=== PATIENT | female | born 1940 | race African-American/Black ===

== ENCOUNTER 2020-06-11 19:37 | Emergency (ER) | payer OTHER ==
[2020-06-11 19:50] VITALS: BMI 22.6
--- NOTE | 2020-06-11 20:24 | PDOC ---
Attending Attestation - Resident Resident Name: Leni Morin - ED Attending Attestation I have performed the following: I have examined & evaluated the patient, The case was reviewed & discussed with the resident, I agree w/resident's findings & plan - HPI HPI: 06/11/20 21:02 see resident hpi - Physicial Exam PE: 06/11/20 21:02 see resident exam - Medical Decision Making 06/11/20 21:02 80-year-old female status post pacemaker battery replacement4 days ago complaining of pain and swelling to the sites Patient is currently on Coumadin and states that she was not asked to stop the medication prior to procedure Chest x-ray shows in-place pacemaker, there is no obvious pneumothorax Increased markings in the surrounding area likely due to subcutaneous hematoma We will place call to patient's cardiology team for further recommendations 06/11/20 21:03 Discharge - Discharge Information Problems reviewed: Yes Clinical Impression/Diagnosis: At risk for complication at site of pacemaker Condition: Fair - Follow up/Referral - Patient Discharge Instructions - Post Discharge Activity
[2020-06-11] MEDS ORDERED: ACETAMINOPHEN 325 MG TABLET (FP) PO ONE (20:28)
[2020-06-11] MEDS ORDERED: ACETAMINOPHEN 325 MG TABLET (FP) ONE (20:37)
--- NOTE | 2020-06-11 20:40 | PDOC ---
History of Present Illness - General Chief Complaint: Pain, Acute Stated Complaint: BRUISING TO PACEMAKER SITE Time Seen by Provider: 06/11/20 20:23 - History of Present Illness Initial Comments: 80 yo female with PMH of htn, hld, dm, afib (warfarin), chf, copd (2L) Pt BIBEMS from [facility] for pain/bruising on her left breast and left arm. She underwent pacemaker battery replacement on wednesday with the surgical site at the top left chest wall. Her continued taking her warfarin throughout the surgery. She endorses pain at the surgical site that has been decreasing and responsive to tylenol. She denies fevers, chills, cp, sob, nvd, abd pain, dysuria. Past History - Medical History Allergies/Adverse Reactions: Allergies Allergy/AdvReac Type Severity Reaction Status Date / Time Penicillins Allergy Verified 02/06/20 14:35 Home Medications: Ambulatory Orders Acetaminophen [Pain Relief] 500 mg PO QID 02/06/20 Albuterol Sulfate Inhaler - [Ventolin Hfa Inhaler -] 1 puff IH QID 02/06/20 Amlodipine Besylate [Norvasc -] 10 mg PO DAILY 02/06/20 Ascorbic Acid [Vitamin C] 500 mg PO DAILY 02/06/20 Aspirin [Aspirin EC] 81 mg PO DAILY 02/06/20 Atorvastatin Ca [Lipitor] 40 mg PO HS 02/06/20 Budesonide/Formeterol Fumarate [SYMBICORT 160/4.5mcg -] 1 inh PO BID 02/06/20 Carboxymethylcellulose Sodium [Refresh Plus] 1 each OU BID 02/06/20 Cholecalciferol (Vitamin D3) [Vitamin D3] 2,000 unit PO DAILY 02/06/20 Furosemide [Lasix] 20 mg PO DAILY 02/06/20 Glimepiride [Amaryl -] 1 mg PO DAILY 02/06/20 Isosorbide Mononitrate [Imdur -] 60 mg PO DAILY 02/06/20 Lisinopril [Prinivil] 10 mg PO DAILY 02/06/20 Metoprolol Succinate [Toprol Xl] 50 mg PO DAILY 02/06/20 Nitrofurantoin Monohyd/M-Cryst [Macrobid -] 100 mg PO BID 5 Days #10 capsule 02/06/20 Olopatadine HCl [Pazeo] 1 drop OP DAILY 02/06/20 Pantoprazole Sodium [Protonix] 40 mg PO DAILY 02/06/20 Warfarin Sodium [Coumadin] 5 mg PO ASDIR 02/06/20 Warfarin Sodium [Coumadin] 6 mg PO ASDIR 02/06/20 traZODone HCL [Trazodone HCl] 25 mg PO DAILY 02/06/20 Anemia: Yes Asthma: Yes Cardiac Disorders: (angina) COPD: Yes CHF: Yes Diabetes: Yes GI Disorders: (reflux) HTN: Yes Hypercholesterolemia: Yes Psychiatric Problems: (insomnia, depression) - Psycho-Social/Smoking History Smoking History: Never smoked Have you smoked in the past 12 months: No - Substance Abuse Hx (Audit-C & DAST Scrn) How often the patient has a drink containing alcohol: Never Score: In Men: 4 or > Positive; In Women: 3 or > Positive: 0 Screen Result (Pos requires Nsg. Audit-10AR): Negative In the last yr the pt used illegal drug/Rx for NonMed reason: No Score: Yes response is considered Positive: 0 Screen Result (Positive result requires Nsg. DAST-10): Negative Review of Systems - Review of Systems Constitutional: No: Chills, Fever HEENTM: No: Recent change in vision, Double Vision Respiratory: Yes: Shortness of Breath (consistent with baseline). No: Cough, Wheezing, Productive cough ABD/GI: No: Diarrhea, Nausea, Vomiting : No: Burning, Dysuria Musculoskeletal: Yes: Other (chest wall pain at surgical site with bruising spreading to left arm and left breast) Integumentary: No: Erythema, Lesions Neurological: No: Headache, Numbness, Weakness Psychiatric: No: Anxiety, Depression, Mood Swings Endocrine: No: Intolerance to Cold, Intolerance to Heat Hematologic/Lymphatic: No: Anemia, Easy Bleeding, Easy Bruising *Physical Exam - Vital Signs Last Vital Signs Temp Pulse Resp BP Pulse Ox 98.1 F 93 H 18 140/83 96 06/11/20 19:40 06/11/20 19:40 06/11/20 19:40 06/11/20 19:40 06/11/20 19:40 - Physical Exam General Appearance: Yes: Appropriately Dressed. No: Apparent Distress HEENT: positive: EOMI, Normal Voice Neck: negative: Tender, Rigid Respiratory/Chest: positive: Lungs Clear, Normal Breath Sounds. negative: Respiratory Distress Cardiovascular: positive: Regular Rhythm, Regular Rate, S1, S2. negative: Edema, Bradycardia, Tachycardia Gastrointestinal/Abdominal: positive: Normal Bowel Sounds, Tender (right upper quadrant underneath tender breast), Flat, Soft Musculoskeletal: positive: Other (left upper chest wall tenderness extending to left breast and left arm. ) Extremity: positive: Normal Capillary Refill, Normal Range of Motion Integumentary: positive: Dry, Warm, Ecchymosis (left arm and left breast) Neurologic: positive: Fully Oriented, Alert, Normal Mood/Affect, Motor Strength 12/25 ED Treatment Course - LABORATORY CBC & Chemistry Diagram: 06/11/20 21:00 06/11/20 21:00 - RADIOLOGY Radiology Studies Ordered: Category Date Time Status CHEST PA & LAT [RAD] Stat Radiology 06/11/20 20:27 Ordered Medical Decision Making - Medical Decision Making 80 yo female with PMH of htn, hld, dm, afib (warfarin), chf, copd (2L) Pt is POD#4 from pacemaker battery change by Dr. Holley at [facility]. Her chronic condition nurse is Dr. Mayen. Pt presents with pain/ecchymosis in left arm/breast Unable to get a hold of chronic condition nurse. VS: wnl PE: tenderness/ecchymosis at surgical site and left breast/arm Labs: anemia (hb 9.7), INR 9.62 EKG: pacemaker controlled rhythm, normal IA interval 148, prolonged QRS 152, prolonged QTc 505. Spoke with Dr. Winslow at [facility] who informed us that ecchymosis/swelling is a normal post-op complication. Pt's PT is supratherapeutic at 9.62. We will be transferring her to [facility] to receive care by her cardiology team. No FFP/Vit K will be given since pt is stable and not actively hemorrhaging (as per Dr. Winslow). Transferring to [facility]. Signed out to night team. Discharge - Discharge Information Problems reviewed: Yes Clinical Impression/Diagnosis: At risk for complication at site of pacemaker, Supratherapeutic INR Condition: Guarded Disposition: TRANSFER ACUTE CARE/OTHER HOSP - Admission No - Follow up/Referral - Patient Discharge Instructions - Post Discharge Activity
[2020-06-11 21:28] LABS: BASO % 0.4 % (0-2.0); EOS % 1.6 % (0-4.5); HEMOGLOBIN 9.7 GM/dL (10.7-15.3); LYMPH % 20.5 % (8-40); MCH 30.1 pg (25.7-33.7); MCHC 32.3 g/dl (32.0-36.0); MEAN CELL VOLUME 93.4 fl (80-96); MEAN PLT VOLUME 7.4 fl (7.5-11.1); MONO % 11.4 % (3.8-10.2); NEUT % 66.1 % (42.8-82.8); PLATELET COUNT 252 K/MM3 (134-434); RBC 3.21 M/mm3 (3.60-5.2); RDW 14.2 % (11.6-15.6)
[2020-06-11 21:38] LABS: ACTIVATED PTT 54.4 SECONDS (25.2-36.5)
[2020-06-11 21:51] LABS: CHLORIDE 105 mmol/L (98-107); POTASSIUM 4.4 mmol/L (3.5-5.1); SODIUM 139 mmol/L (136-145)
[2020-06-11 21:55] LABS: ALBUMIN 3.1 g/dl (3.4-5.0); ANION GAP 6 MMOL/L (8-16); BLOOD UREA NITROGEN 27.2 mg/dL (7-18); CALCIUM 8.8 mg/dL (8.5-10.1); CO2 28 mmol/L (21-32); GLUCOSE,RANDOM 92 mg/dL (74-106)
[2020-06-11 21:58] LABS: CREATININE 1.6 mg/dL (0.55-1.3); SGOT/AST 15 U/L (15-37); SGPT/ALT 32 U/L (13-61)
[2020-06-11 22:00] LABS: BILIRUBIN,TOTAL 0.7 mg/dL (0.2-1); TOT PROT 7.3 g/dl (6.4-8.2)
[2020-06-11 22:01] LABS: ALK PHOS 178 U/L (45-117)
[2020-06-11 22:13] LABS: INR 9.62 (0.83-1.09); PROTHROMBIN TIME (PATIENT) 110.8 SEC (9.7-13.0)
--- NOTE | 2020-06-11 22:28 | PDOC ---
*Physical Exam - Vital Signs Last Vital Signs Temp Pulse Resp BP Pulse Ox 98.1 F 93 H 18 140/83 96 06/11/20 19:40 06/11/20 19:40 06/11/20 19:40 06/11/20 19:40 06/11/20 19:40 ED Treatment Course - LABORATORY CBC & Chemistry Diagram: 06/11/20 21:00 06/11/20 21:00 - ADDITIONAL ORDERS Additional order review: Laboratory Results 06/11/20 06/11/20 21:00 21:00 PT with INR 110.80 H INR 9.62 H* PTT (Actin FS) 54.4 H Sodium 139 Potassium 4.4 Chloride 105 Carbon Dioxide 28 Anion Gap 6 L BUN 27.2 H Creatinine 1.6 H Est GFR (CKD-EPI)AfAm 35.15 Est GFR (CKD-EPI)NonAf 30.33 Random Glucose 92 Calcium 8.8 Total Bilirubin 0.7 AST 15 ALT 32 Alkaline Phosphatase 178 H Creatine Kinase 85 Troponin I < 0.02 Total Protein 7.3 Albumin 3.1 L 06/11/20 21:00 RBC 3.21 L MCV 93.4 MCHC 32.3 RDW 14.2 MPV 7.4 L Neutrophils % 66.1 Lymphocytes % 20.5 Monocytes % 11.4 H Eosinophils % 1.6 Basophils % 0.4 - Medications Given in the ED: ED Medications Discontinued Medications Generic Name Dose Route Start Last Admin Trade Name Freq PRN Reason Stop Dose Admin Acetaminophen 650 mg 06/11/20 20:28 06/11/20 20:34 Tylenol - PO 06/11/20 20:29 650 mg ONCE ONE Administration Medical Decision Making - Medical Decision Making Patient signed out by Dr. Morin 80 yo F with PMH of HTN, HLD, DM, Afib (on coumadin), CHF, COPD (2L NC as needed) sent by [facility] for evaluation of pain/bruising on her left breast and left arm s/p pacemaker battery replacement on wednesday06/07/20. Continued taking coumadin) throughout the surgery, last dose yesterday evening. INR, PTT INR 9.62 (0.83-1.09) H* 06/11/20 21:00 Patient with supratherapeutic INR Pending callback from [facility] interventional cardiology team regarding this for transfer Dr. Morin spoke with Dr. Winslow who is vocational nursing instructor for Dr. Juan Bates (the provider who performed the procedure on 06/07/20) Patient's protective signal installer is Dr. Mayen 06/11/20 22:25 Patient accepted for transfer to [facility] Accepting physician is Dr. Winslow who does not recommend anticoagulation reversal at this time Pending ETA 06/11/20 22:49 Patient left the ED via ambulance 06/12/20 01:28 Discharge - Discharge Information Problems reviewed: Yes Clinical Impression/Diagnosis: At risk for complication at site of pacemaker, Supratherapeutic INR Condition: Guarded Disposition: TRANSFER ACUTE CARE/OTHER HOSP - Follow up/Referral - Patient Discharge Instructions - Post Discharge Activity - Transfer to Acute Care Facility Receiving Facility Name: [facility]
[2020-06-11 23:57] VITALS: BP 150/81; PULSE 83; TEMP 98.7
--- NOTE | 2020-06-12 11:03 | EKG ---
Test Reason : Blood Pressure : / mmHG Vent. Rate : 084 BPM Atrial Rate : 084 BPM P-R Int : 148 ms QRS Dur : 152 ms QT Int : 428 ms P-R-T Axes : 071 107 -18 degrees QTc Int : 505 ms Atrial-sensed ventricular-paced rhythm WITH OCCASIONAL PREMATURE VENTRICULAR COMPLEXES Biventricular pacemaker detected ABNORMAL ECG Confirmed by MD LUCIANO MOYSES ([id number]) on 06/12/2020 11:02:42 AM Referred By: Confirmed By:AMANDA LUCIANO MD
== END 2020-06-12 01:20 | disposition short-term general hospital (02) ==
LOC: JER 19:37
DX: R79.1 Abnormal coagulation profile (principal); T82.897A Other specified complication of cardiac prosthetic devices, implants and grafts, initial encounter
CPT/HCPCS: 36415; 71046-TC-FY; 80053; 82550; 84484; 85025; 85610; 85730; 93005; 93010; 99285-25

== ENCOUNTER 2022-05-23 08:37 | Inpatient (IN) | payer OTHER ==
[2022-05-23 09:53] LABS: EOS % 0.4 % (0-4.5); HEMATOCRIT 38.7 % (32.4-45.2); HEMOGLOBIN 12.4 GM/dL (10.7-15.3); LYMPH % 18.5 % (8-40); MCH 31.5 pg (25.7-33.7); MCHC 32.2 g/dl (32.0-36.0); MEAN CELL VOLUME 97.9 fl (80-96); MEAN PLT VOLUME 8.2 fl (7.5-11.1); MONO % 7.7 % (3.8-10.2); NEUT % 72.4 % (42.8-82.8); PLATELET COUNT 251 10^3/uL (134-434); RBC 3.95 M/mm3 (3.60-5.2); RDW 13.9 % (11.6-15.6); WHITE BLOOD COUNT 4.4 K/mm3 (4.0-10.0)
[2022-05-23 10:09] LABS: ALBUMIN 3.5 g/dl (3.4-5.0); BLOOD UREA NITROGEN 13.6 mg/dL (7-18); CALCIUM 9.5 mg/dL (8.5-10.1)
[2022-05-23 10:13] LABS: BILIRUBIN,TOTAL 0.5 mg/dL (0.2-1); TOT PROT 7.6 g/dl (6.4-8.2)
[2022-05-23] MEDS ORDERED: ASPIRIN 81 MG CHEWABLE TABLETS PO ONE (10:47)
[2022-05-23] MEDS ORDERED: ASPIRIN 81 MG CHEWABLE TABLETS ONE (11:09)
[2022-05-23 12:33] LABS: EPI CELLS 20 /uL (0-25.1); HYALINE CASTS 0 /uL (0-3.1); URINE APPEARANCE CLEAR; URINE BACTERIA 199 /uL (0-1359); URINE BILIRUBIN NEGATIVE (NEGATIVE); URINE COLOR YELLOW; URINE GLUCOSE (UA) NEGATIVE (NEGATIVE); URINE KETONE NEGATIVE (NEGATIVE); URINE LEUK ESTERASE NEGATIVE (NEGATIVE); URINE NITRITE NEGATIVE (NEGATIVE); URINE PROTEIN 3+ (NEGATIVE); URINE RBC 494 /uL (0-23.9); URINE WBC 8 /uL (0-25.8)
[2022-05-23 13:26] LABS: MAGNESIUM 1.8 mg/dL (1.8-2.4)
[2022-05-23] MEDS ORDERED: HEPARIN NA (PORCINE) 5,000 UNITS/ML 1ML VIAL IVPUSH PRN ×2 (13:47)
[2022-05-23] MEDS ORDERED: HEPARIN NA (PORCINE) 5,000 UNITS/ML 1ML VIAL IVPUSH ONE (13:47)
[2022-05-23] MEDS ORDERED: HEPARIN NA (PORCINE) 5,000 UNITS/ML 1ML VIAL ONE ×2 (13:57→14:50)
[2022-05-23] MEDS ORDERED: HEPARIN - 25,000 UNIT in SODIUM CHLORIDE 495 ML IV SCH (14:00)
[2022-05-23] MEDS ORDERED: METOPROLOL TARTRATE 50 MG TABLET (FP) PO ONE (14:13)
[2022-05-23] MEDS ORDERED: ACETAMINOPHEN 1000 MG/100 ML BAG IVPB ONE (14:25)
[2022-05-23] MEDS ORDERED: METOPROLOL TARTRATE 50 MG TABLET (FP) ONE (14:52)
[2022-05-23] MEDS ORDERED: ACETAMINOPHEN INJECTION 100 ML IVPB ONE (14:52)
[2022-05-23] MEDS: traZODone HCL 50 MG TABLET (FP) PO SCH (21:18)
[2022-05-23] MEDS: ATORVASTATIN CA 40 MG TABLET (FP) PO SCH (21:18)
[2022-05-24] MEDS ORDERED: HALOPERIDOL LACTATE 5 MG/ML ONE (01:59)
[2022-05-24] MEDS ORDERED: HALOPERIDOL LACTATE 5 MG/ML IV ONE (02:11)
[2022-05-24] MEDS: GLIMEPIRIDE 1 MG TABLET PO SCH (06:12)
[2022-05-24 08:35] LABS: ALBUMIN 3.7 g/dl (3.4-5.0); BILIRUBIN,TOTAL 0.8 mg/dL (0.2-1); BLOOD UREA NITROGEN 12.9 mg/dL (7-18); CALCIUM 9.5 mg/dL (8.5-10.1); MAGNESIUM 1.9 mg/dL (1.8-2.4); TOT PROT 8.2 g/dl (6.4-8.2)
[2022-05-24 08:38] LABS: CREATININE 0.8 mg/dL (0.55-1.3); PHOSPHOROUS 2.6 mg/dL (2.5-4.9)
[2022-05-24] MEDS: amLODIPine BESYLATE 10 MG TABLET (FP) PO SCH (09:05)
[2022-05-24] MEDS: LISINOPRIL 10 MG TABLET PO SCH (09:05)
[2022-05-24] MEDS: PANTOPRAZOLE 40 MG TABLET PO SCH (09:05)
[2022-05-24] MEDS: ASPIRIN COATED 81 MG TABLET.EC PO SCH (09:05)
[2022-05-24] MEDS: ISOSORBIDE MONONITRATE 60 MG TAB.SR.24H (FP) PO SCH (09:19)
[2022-05-24] MEDS: APIXABAN 2.5 MG TABLET PO SCH ×3 (10:47→22:49)
[2022-05-24] MEDS ORDERED: QUEtiapine FUMARATE 25 MG TABLET PO ONE (16:09)
[2022-05-24] MEDS: ATORVASTATIN CA 40 MG TABLET (FP) PO SCH (22:48)
[2022-05-24] MEDS: traZODone HCL 50 MG TABLET (FP) PO SCH (22:48)
[2022-05-24] MEDS: QUEtiapine FUMARATE 25 MG TABLET PO SCH (22:49)
[2022-05-25] MEDS: GLIMEPIRIDE 1 MG TABLET PO SCH (06:12)
[2022-05-25] MEDS: ASPIRIN COATED 81 MG TABLET.EC PO SCH (09:33)
[2022-05-25] MEDS: APIXABAN 2.5 MG TABLET PO SCH ×2 (09:33→22:59)
[2022-05-25] MEDS: PANTOPRAZOLE 40 MG TABLET PO SCH (09:33)
[2022-05-25] MEDS: ISOSORBIDE MONONITRATE 60 MG TAB.SR.24H (FP) PO SCH (09:33)
[2022-05-25] MEDS: amLODIPine BESYLATE 10 MG TABLET (FP) PO SCH (09:33)
[2022-05-25] MEDS: LISINOPRIL 10 MG TABLET PO SCH (09:33)
[2022-05-25] MEDS ORDERED: DEXMEDETOMIDINE PREMIX 400 MCG/100 ML BAG IVPB SCH (19:45)
[2022-05-25] MEDS: ATORVASTATIN CA 40 MG TABLET (FP) PO SCH (22:59)
[2022-05-25] MEDS: QUEtiapine FUMARATE 25 MG TABLET PO SCH (22:59)
[2022-05-25] MEDS: traZODone HCL 50 MG TABLET (FP) PO SCH (22:59)
[2022-05-26] MEDS: GLIMEPIRIDE 1 MG TABLET PO SCH (06:13)
[2022-05-26] MEDS: APIXABAN 2.5 MG TABLET PO SCH ×2 (09:45→22:13)
[2022-05-26] MEDS: LISINOPRIL 10 MG TABLET PO SCH (09:45)
[2022-05-26] MEDS: ISOSORBIDE MONONITRATE 60 MG TAB.SR.24H (FP) PO SCH (09:45)
[2022-05-26] MEDS: amLODIPine BESYLATE 10 MG TABLET (FP) PO SCH (09:45)
[2022-05-26] MEDS: ASPIRIN COATED 81 MG TABLET.EC PO SCH (09:46)
[2022-05-26] MEDS: PANTOPRAZOLE 40 MG TABLET PO SCH (09:46)
[2022-05-26] MEDS: QUEtiapine FUMARATE 25 MG TABLET PO SCH (18:09)
[2022-05-26] MEDS: ATORVASTATIN CA 40 MG TABLET (FP) PO SCH (22:13)
[2022-05-26] MEDS: traZODone HCL 50 MG TABLET (FP) PO SCH (22:13)
[2022-05-27] MEDS: GLIMEPIRIDE 1 MG TABLET PO SCH (06:18)
[2022-05-27] MEDS: ACETAMINOPHEN 1000 MG/100 ML BAG IVPB PRN ×2 (06:40→13:00)
[2022-05-27 08:20] LABS: BASO % 0.5 % (0-2.0); EOS % 0.7 % (0-4.5); HEMATOCRIT 37.1 % (32.4-45.2); LYMPH % 20.2 % (8-40); MCH 31.8 pg (25.7-33.7); MCHC 32.4 g/dl (32.0-36.0); MEAN PLT VOLUME 8.9 fl (7.5-11.1); MONO % 10.6 % (3.8-10.2); PLATELET COUNT 222 10^3/uL (134-434); RBC 3.78 M/mm3 (3.60-5.2); RDW 13.8 % (11.6-15.6); WHITE BLOOD COUNT 6.6 K/mm3 (4.0-10.0)
[2022-05-27 08:57] LABS: ALBUMIN 2.8 g/dl (3.4-5.0); BILIRUBIN,TOTAL 0.6 mg/dL (0.2-1); BLOOD UREA NITROGEN 29.6 mg/dL (7-18); CALCIUM 9.1 mg/dL (8.5-10.1); CREATININE 0.9 mg/dL (0.55-1.3); MAGNESIUM 1.9 mg/dL (1.8-2.4); TOT PROT 6.6 g/dl (6.4-8.2)
[2022-05-27] MEDS: amLODIPine BESYLATE 10 MG TABLET (FP) PO SCH (09:08)
[2022-05-27] MEDS: ASPIRIN COATED 81 MG TABLET.EC PO SCH (09:08)
[2022-05-27] MEDS: PANTOPRAZOLE 40 MG TABLET PO SCH (09:08)
[2022-05-27] MEDS: LISINOPRIL 10 MG TABLET PO SCH (09:08)
[2022-05-27] MEDS: ENOXAPARIN NA (PORCINE) 60 MG/0.6 ML DISP.SYRIN SQ SCH ×2 (09:08→21:38)
[2022-05-27] MEDS: ISOSORBIDE MONONITRATE 60 MG TAB.SR.24H (FP) PO SCH (09:12)
[2022-05-27] MEDS ORDERED: QUEtiapine FUMARATE 25 MG TABLET PO SCH (10:00)
[2022-05-27] MEDS ORDERED: LIDOCAINE 5% TOPICAL PATCH TP SCH (10:00)
[2022-05-27 16:10] VITALS: BMI 19.1
[2022-05-27] MEDS: QUEtiapine FUMARATE 25 MG TABLET PO SCH (17:24)
[2022-05-27] MEDS: traZODone HCL 50 MG TABLET (FP) PO SCH (21:38)
[2022-05-27] MEDS: ATORVASTATIN CA 40 MG TABLET (FP) PO SCH ×2 (21:38→21:54)
[2022-05-27] MEDS ORDERED: LIDOCAINE PATCH REMOVAL MC SCH (22:00)
[2022-05-27 22:52] VITALS: BP 119/80; PULSE 109; RESP 20; TEMP 98.7
== END 2022-05-27 23:25 | disposition short-term general hospital (02) | DRG 315 ==
LOC: JER 08:37 → JERBED 13:36 → JICU 16:03
PROVIDERS: ADMIT Internal Medicine Pulmonary Disease; ATTEND Nurse Practitioner Acute Care
DX: T82.897A Other specified complication of cardiac prosthetic devices, implants and grafts, initial encounter (principal); I24.8 Other forms of acute ischemic heart disease; I42.9 Cardiomyopathy, unspecified; I47.1 Supraventricular tachycardia; E11.9 Type 2 diabetes mellitus without complications; I11.0 Hypertensive heart disease with heart failure; J44.9 Chronic obstructive pulmonary disease, unspecified; D64.9 Anemia, unspecified; I48.0 Paroxysmal atrial fibrillation; K21.9 Gastro-esophageal reflux disease without esophagitis; E78.5 Hyperlipidemia, unspecified; Y83.9 Surgical procedure, unspecified as the cause of abnormal reaction of the patient, or of later complication, without mention of misadventure at the time of the procedure
CPT/HCPCS: 36415; 71045-TC-FY; 80053; 81003; 82272; 82962; 83735; 84100; 84443; 84484; 85025; 85730; 93005; 93010; 93306-TC; 99285-25; C9803-CS; J1644; U0003; U0005

== ENCOUNTER 2022-11-14 05:21 | Inpatient (IN) | payer OTHER ==
[2022-11-14] MEDS ORDERED: ACETAMINOPHEN 500 MG TABLET (FP) PO ONE (05:40)
[2022-11-14 05:47] VITALS: BMI 29.1
[2022-11-14 08:45] LABS: BASO % 1.3 % (0-2.0); HEMOGLOBIN 12.6 GM/dL (10.7-15.3); LYMPH % 22.8 % (8-40); MCH 30.4 pg (25.7-33.7); MCHC 34.2 g/dl (32.0-36.0); MEAN CELL VOLUME 88.9 fl (80-96); MEAN PLT VOLUME 9.4 fl (7.5-11.1); MONO % 7.5 % (3.8-10.2); NEUT % 67.4 % (42.8-82.8); PLATELET COUNT 202 10^3/uL (134-434); RBC 4.16 M/mm3 (3.60-5.2); RDW 16.9 % (11.6-15.6); WHITE BLOOD COUNT 4.9 K/mm3 (4.0-10.0)
[2022-11-14] MEDS ORDERED: FUROSEMIDE 40 MG/4 ML INJECTABLE VIAL IVPUSH ONE (08:50)
[2022-11-14] MEDS ORDERED: ACETAMINOPHEN 325 MG TABLET (FP) ONE (08:58)
[2022-11-14] MEDS ORDERED: FUROSEMIDE 40 MG/4 ML INJECTABLE VIAL ONE (08:59)
[2022-11-14 09:03] LABS: CALCIUM 9.1 mg/dL (8.5-10.1)
[2022-11-14 09:05] LABS: ALBUMIN 3.3 g/dl (3.4-5.0); BLOOD UREA NITROGEN 18.8 mg/dL (7-18)
[2022-11-14 09:07] LABS: CREATININE 1.5 mg/dL (0.55-1.3)
[2022-11-14 09:09] LABS: BILIRUBIN,TOTAL 0.6 mg/dL (0.2-1); TOT PROT 7.5 g/dl (6.4-8.2)
[2022-11-14 09:12] LABS: N-TERMINAL BNP 3076.3 pg/ml (5-450)
[2022-11-14] MEDS ORDERED: ACETAMINOPHEN 500 MG TABLET (FP) PO PRN (09:42)
[2022-11-14] MEDS ORDERED: PANTOPRAZOLE 40 MG TABLET PO ONE (09:50)
[2022-11-14] MEDS ORDERED: ISOSORBIDE MONONITRATE 60 MG TAB.SR.24H (FP) PO ONE (09:51)
[2022-11-14] MEDS ORDERED: amLODIPine BESYLATE 10 MG TABLET (FP) ONE (09:51)
[2022-11-14] MEDS ORDERED: LIDOCAINE 5% TOPICAL PATCH ONE (09:52)
[2022-11-14] MEDS: amLODIPine BESYLATE 10 MG TABLET (FP) PO SCH (10:00)
[2022-11-14] MEDS: LIDOCAINE 5% TOPICAL PATCH TP SCH (10:00)
[2022-11-14] MEDS: PANTOPRAZOLE 40 MG TABLET PO SCH (10:00)
[2022-11-14] MEDS ORDERED: ACETAMINOPHEN 500 MG TABLET (FP) PO SCH (10:00)
[2022-11-14] MEDS: ISOSORBIDE MONONITRATE 60 MG TAB.SR.24H (FP) PO SCH (10:01)
[2022-11-14] MEDS ORDERED: METOPROLOL TARTRATE 50 MG TABLET (FP) ONE (10:38)
[2022-11-14] MEDS: METOPROLOL TARTRATE 50 MG TABLET (FP) PO SCH ×2 (10:38→22:13)
[2022-11-14] MEDS: BUDESONIDE/FORMETEROL FUMARATE 160/4.5 mcg INHALER IH SCH ×2 (11:16→22:21)
[2022-11-14] MEDS ORDERED: APIXABAN 2.5 MG TABLET ONE (11:24)
[2022-11-14] MEDS ORDERED: AMIODARONE HCL 200 MG TABLET ONE (11:24)
[2022-11-14] MEDS: APIXABAN 2.5 MG TABLET PO SCH ×2 (11:30→22:16)
[2022-11-14] MEDS: AMIODARONE HCL 200 MG TABLET PO SCH (11:30)
[2022-11-14] MEDS: INSULIN (NOVOLOG) ASPART 100 UNITS/ML 10ML VIAL SQ SCH ×2 (11:31→17:04)
[2022-11-14] MEDS: QUEtiapine FUMARATE 25 MG TABLET PO SCH ×2 (17:19→17:58)
[2022-11-14] MEDS: LORazepam 2 MG/ML SDV VIAL IVPUSH PRN (17:35)
[2022-11-14] MEDS ORDERED: ATORVASTATIN CA 40 MG TABLET (FP) PO SCH (22:00)
[2022-11-14] MEDS: MIRTAZAPINE 15 MG TABLET (FP) PO SCH (22:19)
[2022-11-14] MEDS: LIDOCAINE PATCH REMOVAL MC SCH (23:21)
[2022-11-15] MEDS: LORazepam 2 MG/ML SDV VIAL IVPUSH PRN (04:15)
[2022-11-15 07:44] LABS: BASO % 1.3 % (0-2.0); EOS % 1.1 % (0-4.5); HEMATOCRIT 35.4 % (32.4-45.2); LYMPH % 23.3 % (8-40); MCH 30.3 pg (25.7-33.7); MEAN CELL VOLUME 89.2 fl (80-96); MEAN PLT VOLUME 9.3 fl (7.5-11.1); MONO % 7.6 % (3.8-10.2); NEUT % 66.7 % (42.8-82.8); PLATELET COUNT 188 10^3/uL (134-434); RBC 3.97 M/mm3 (3.60-5.2); RDW 16.6 % (11.6-15.6)
[2022-11-15 08:05] LABS: ALBUMIN 2.6 g/dl (3.4-5.0)
[2022-11-15 08:06] LABS: BLOOD UREA NITROGEN 14.8 mg/dL (7-18)
[2022-11-15 08:09] LABS: BILIRUBIN,TOTAL 0.6 mg/dL (0.2-1); TOT PROT 6.2 g/dl (6.4-8.2)
[2022-11-15 08:10] LABS: CREATININE 1.1 mg/dL (0.55-1.3)
[2022-11-15] MEDS: INSULIN (NOVOLOG) ASPART 100 UNITS/ML 10ML VIAL SQ SCH ×2 (08:19→12:10)
[2022-11-15] MEDS: ISOSORBIDE MONONITRATE 60 MG TAB.SR.24H (FP) PO SCH (09:35)
[2022-11-15] MEDS: AMIODARONE HCL 200 MG TABLET PO SCH (09:35)
[2022-11-15] MEDS: FUROSEMIDE 40 MG TABLET (FP) PO SCH (09:35)
[2022-11-15] MEDS: APIXABAN 2.5 MG TABLET PO SCH ×2 (09:35→21:55)
[2022-11-15] MEDS: METOPROLOL TARTRATE 50 MG TABLET (FP) PO SCH ×2 (09:35→21:55)
[2022-11-15] MEDS: QUEtiapine FUMARATE 25 MG TABLET PO SCH ×2 (09:36→17:48)
[2022-11-15] MEDS: amLODIPine BESYLATE 10 MG TABLET (FP) PO SCH (09:36)
[2022-11-15] MEDS: LIDOCAINE 5% TOPICAL PATCH TP SCH (09:36)
[2022-11-15] MEDS: PANTOPRAZOLE 40 MG TABLET PO SCH (09:36)
[2022-11-15] MEDS: BUDESONIDE/FORMETEROL FUMARATE 160/4.5 mcg INHALER IH SCH ×2 (09:36→22:22)
[2022-11-15] MEDS ORDERED: FUROSEMIDE 40 MG/4 ML INJECTABLE VIAL IVPUSH SCH (10:00)
[2022-11-15] MEDS: MIRTAZAPINE 15 MG TABLET (FP) PO SCH (21:55)
[2022-11-15] MEDS: LIDOCAINE PATCH REMOVAL MC SCH (22:03)
[2022-11-16 08:42] LABS: EOS % 1.1 % (0-4.5); HEMATOCRIT 39.3 % (32.4-45.2); HEMOGLOBIN 13.3 GM/dL (10.7-15.3); LYMPH % 28.4 % (8-40); MCH 30.2 pg (25.7-33.7); MCHC 33.8 g/dl (32.0-36.0); MEAN CELL VOLUME 89.2 fl (80-96); MONO % 7.1 % (3.8-10.2); NEUT % 62.4 % (42.8-82.8); PLATELET COUNT 199 10^3/uL (134-434); RDW 17.2 % (11.6-15.6); WHITE BLOOD COUNT 5.2 K/mm3 (4.0-10.0)
[2022-11-16 09:16] LABS: CALCIUM 9.2 mg/dL (8.5-10.1); CREATININE 1.1 mg/dL (0.55-1.3)
[2022-11-16 09:24] LABS: N-TERMINAL BNP 3717.1 pg/ml (5-450)
[2022-11-16] MEDS: INSULIN (NOVOLOG) ASPART 100 UNITS/ML 10ML VIAL SQ SCH ×4 (12:35→17:30)
[2022-11-16] MEDS: QUEtiapine FUMARATE 25 MG TABLET PO SCH ×3 (12:39→18:00)
[2022-11-16] MEDS: PANTOPRAZOLE 40 MG TABLET PO SCH (12:40)
[2022-11-16] MEDS: FUROSEMIDE 40 MG TABLET (FP) PO SCH (12:40)
[2022-11-16] MEDS: ISOSORBIDE MONONITRATE 60 MG TAB.SR.24H (FP) PO SCH (12:41)
[2022-11-16] MEDS: METOPROLOL TARTRATE 50 MG TABLET (FP) PO SCH ×2 (12:41→21:18)
[2022-11-16] MEDS: AMIODARONE HCL 200 MG TABLET PO SCH (12:41)
[2022-11-16] MEDS: amLODIPine BESYLATE 10 MG TABLET (FP) PO SCH (12:41)
[2022-11-16] MEDS: APIXABAN 2.5 MG TABLET PO SCH ×2 (12:42→21:18)
[2022-11-16] MEDS: LIDOCAINE 5% TOPICAL PATCH TP SCH (12:42)
[2022-11-16] MEDS: BUDESONIDE/FORMETEROL FUMARATE 160/4.5 mcg INHALER IH SCH ×2 (12:43→21:20)
[2022-11-16] MEDS: MIRTAZAPINE 15 MG TABLET (FP) PO SCH (21:19)
[2022-11-16] MEDS: LIDOCAINE PATCH REMOVAL MC SCH (21:23)
[2022-11-17] MEDS: LORazepam 2 MG/ML SDV VIAL IVPUSH PRN (00:43)
[2022-11-17] MEDS: INSULIN (NOVOLOG) ASPART 100 UNITS/ML 10ML VIAL SQ SCH ×3 (06:42→16:30)
[2022-11-17 07:20] VITALS: RESP 18
[2022-11-17] MEDS: FUROSEMIDE 40 MG TABLET (FP) PO SCH (10:21)
[2022-11-17] MEDS: ISOSORBIDE MONONITRATE 60 MG TAB.SR.24H (FP) PO SCH (10:21)
[2022-11-17] MEDS: AMIODARONE HCL 200 MG TABLET PO SCH (10:21)
[2022-11-17] MEDS: amLODIPine BESYLATE 10 MG TABLET (FP) PO SCH (10:21)
[2022-11-17] MEDS: PANTOPRAZOLE 40 MG TABLET PO SCH (10:21)
[2022-11-17] MEDS: APIXABAN 2.5 MG TABLET PO SCH (10:21)
[2022-11-17] MEDS: LIDOCAINE 5% TOPICAL PATCH TP SCH (10:21)
[2022-11-17] MEDS: QUEtiapine FUMARATE 25 MG TABLET PO SCH ×2 (10:23→17:19)
[2022-11-17] MEDS: BUDESONIDE/FORMETEROL FUMARATE 160/4.5 mcg INHALER IH SCH (10:24)
[2022-11-17] MEDS: METOPROLOL TARTRATE 50 MG TABLET (FP) PO SCH (10:26)
[2022-11-17 18:21] VITALS: BP 123/76; PULSE 62; TEMP 98.1
== END 2022-11-17 18:00 | disposition home or self-care (01) | DRG 291 ==
LOC: JER 05:21 → JERBED 09:40 → J4W 15:29
PROVIDERS: ADMIT Internal Medicine; ATTEND Internal Medicine
DX: I11.0 Hypertensive heart disease with heart failure (principal); I50.23 Acute on chronic systolic (congestive) heart failure; N17.9 Acute kidney failure, unspecified; E11.9 Type 2 diabetes mellitus without complications; J44.9 Chronic obstructive pulmonary disease, unspecified; I48.0 Paroxysmal atrial fibrillation; E78.5 Hyperlipidemia, unspecified
CPT/HCPCS: 36415; 70450-TC; 70486-TC; 71045-TC-FY; 72125-TC; 72192-TC; 80048; 80053; 80061; 82962; 83036; 83880; 84439; 84443; 84484; 85025; 93005; 93010; 93306-TC; 97116-GP; 97162-GP; 99285-25; C9803-CS; U0003; U0005

== ENCOUNTER 2022-12-08 11:11 | Inpatient (IN) | payer OTHER ==
[2022-12-08 11:37] VITALS: BMI 20.1
[2022-12-08 12:44] LABS: BASO % 1.4 % (0-2.0); EOS % 0.8 % (0-4.5); HEMATOCRIT 40.6 % (32.4-45.2); HEMOGLOBIN 13.7 GM/dL (10.7-15.3); MCH 30.7 pg (25.7-33.7); MCHC 33.8 g/dl (32.0-36.0); MEAN CELL VOLUME 90.6 fl (80-96); MONO % 5.7 % (3.8-10.2); NEUT % 69.1 % (42.8-82.8); PLATELET COUNT 223 10^3/uL (134-434); RBC 4.48 M/mm3 (3.60-5.2); RDW 16.8 % (11.6-15.6); VENOUS BASE EXCESS 0.2 mmol/L (-2-2); VENOUS PCO2 46.3 mmHg (38-52); VENOUS PH 7.367 (7.310-7.410); WHITE BLOOD COUNT 3.9 K/mm3 (4.0-10.0)
[2022-12-08 12:50] LABS: INR 1.22 (0.83-1.09); PROTHROMBIN TIME (PATIENT) 14.1 SEC (9.7-13.0)
[2022-12-08 12:53] LABS: ACTIVATED PTT 30.8 SECONDS (25.2-36.5)
[2022-12-08 13:16] LABS: CALCIUM 9.7 mg/dL (8.5-10.1)
[2022-12-08 13:17] LABS: ALBUMIN 3.4 g/dl (3.4-5.0); BLOOD UREA NITROGEN 23.7 mg/dL (7-18); MAGNESIUM 1.7 mg/dL (1.8-2.4)
[2022-12-08 13:20] LABS: CREATININE 1.4 mg/dL (0.55-1.3)
[2022-12-08 13:21] LABS: BILIRUBIN,TOTAL 0.7 mg/dL (0.2-1)
[2022-12-08 13:22] LABS: TOT PROT 7.8 g/dl (6.4-8.2)
[2022-12-08 13:25] LABS: N-TERMINAL BNP 3833.6 pg/ml (5-450)
[2022-12-08] MEDS ORDERED: FUROSEMIDE 40 MG/4 ML INJECTABLE VIAL IVPUSH ONE (13:28)
[2022-12-08] MEDS ORDERED: FUROSEMIDE 40 MG/4 ML INJECTABLE VIAL ONE (14:28)
[2022-12-08 15:51] LABS: EPI CELLS 22 /uL (0-25.1); HYALINE CASTS 0 /uL (0-3.1); URINE APPEARANCE CLEAR; URINE BACTERIA 123 /uL (0-1359); URINE BILIRUBIN NEGATIVE (NEGATIVE); URINE COLOR YELLOW; URINE GLUCOSE (UA) NEGATIVE (NEGATIVE); URINE KETONE TRACE (NEGATIVE); URINE LEUK ESTERASE NEGATIVE (NEGATIVE); URINE NITRITE NEGATIVE (NEGATIVE); URINE PROTEIN 1+ (NEGATIVE); URINE RBC 209 /uL (0-23.9); URINE UROBILINOGEN 0.2 mg/dL (0.2-1.0); URINE WBC 4 /uL (0-25.8)
[2022-12-08] MEDS ORDERED: ACETAMINOPHEN 500 MG TABLET (FP) PO PRN (15:55)
[2022-12-08] MEDS ORDERED: PANTOPRAZOLE 40 MG TABLET PO ONE (22:28)
[2022-12-08] MEDS ORDERED: ATORVASTATIN CA 40 MG TABLET (FP) ONE (22:29)
[2022-12-08] MEDS ORDERED: MIRTAZAPINE 15 MG TABLET (FP) ONE (22:29)
[2022-12-08] MEDS ORDERED: APIXABAN 2.5 MG TABLET ONE (22:29)
[2022-12-08] MEDS: BUDESONIDE/FORMETEROL FUMARATE 160/4.5 mcg INHALER IH SCH (22:45)
[2022-12-08] MEDS: PANTOPRAZOLE 40 MG TABLET PO SCH (22:45)
[2022-12-08] MEDS: traZODone HCL 50 MG TABLET (FP) PO SCH (22:45)
[2022-12-08] MEDS: APIXABAN 2.5 MG TABLET PO SCH (22:45)
[2022-12-08] MEDS: ATORVASTATIN CA 40 MG TABLET (FP) PO SCH (22:45)
[2022-12-08] MEDS: MIRTAZAPINE 15 MG TABLET (FP) PO SCH (22:45)
[2022-12-09 08:12] LABS: BASO % 1.3 % (0-2.0); EOS % 1.2 % (0-4.5); HEMATOCRIT 37.8 % (32.4-45.2); HEMOGLOBIN 12.9 GM/dL (10.7-15.3); LYMPH % 23.2 % (8-40); MCH 30.6 pg (25.7-33.7); MEAN PLT VOLUME 9.4 fl (7.5-11.1); MONO % 9.8 % (3.8-10.2); NEUT % 64.5 % (42.8-82.8); PLATELET COUNT 205 10^3/uL (134-434); RDW 16.8 % (11.6-15.6); WHITE BLOOD COUNT 4.8 K/mm3 (4.0-10.0)
[2022-12-09 08:32] LABS: BLOOD UREA NITROGEN 21.5 mg/dL (7-18); CALCIUM 9.1 mg/dL (8.5-10.1)
[2022-12-09 08:35] LABS: CREATININE 1.2 mg/dL (0.55-1.3)
[2022-12-09] MEDS ORDERED: MAGNESIUM 2GM/50ML STERILE WATER IVPB IVPB ONE (08:45)
[2022-12-09] MEDS: AMIODARONE HCL 200 MG TABLET PO SCH (09:10)
[2022-12-09] MEDS: ISOSORBIDE MONONITRATE 60 MG TAB.SR.24H (FP) PO SCH (09:10)
[2022-12-09] MEDS: amLODIPine BESYLATE 10 MG TABLET (FP) PO SCH (09:10)
[2022-12-09] MEDS: ASCORBIC ACID 500 MG TABLET (FP) PO SCH (09:10)
[2022-12-09] MEDS: APIXABAN 2.5 MG TABLET PO SCH ×2 (09:10→21:33)
[2022-12-09] MEDS: PANTOPRAZOLE 40 MG TABLET PO SCH (09:10)
[2022-12-09] MEDS: BUDESONIDE/FORMETEROL FUMARATE 160/4.5 mcg INHALER IH SCH ×2 (09:33→21:34)
[2022-12-09] MEDS ORDERED: PANTOPRAZOLE 40 MG TABLET PO SCH (10:00)
[2022-12-09] MEDS ORDERED: PATIENT'S OWN MEDICATION (NON-FORMULARY) (Olopatadine Hcl [Pazeo] 2.5 ML Drops) OP SCH (10:00)
[2022-12-09] MEDS ORDERED: PATIENT'S OWN MEDICATION (NON-FORMULARY) (Ascorbic Acid [Vitamin C] 500 MG Capsule) PO SCH (10:00)
[2022-12-09] MEDS ORDERED: FUROSEMIDE 40 MG/4 ML INJECTABLE VIAL IVPUSH SCH (10:00)
[2022-12-09] MEDS: KCL 10 MEQ IVPB 10 MEQ/100 ML INFUS.BAG IVPB SCH ×4 (17:00→23:25)
[2022-12-09] MEDS: traZODone HCL 50 MG TABLET (FP) PO SCH (21:25)
[2022-12-09] MEDS: ATORVASTATIN CA 40 MG TABLET (FP) PO SCH (21:33)
[2022-12-09] MEDS: MIRTAZAPINE 15 MG TABLET (FP) PO SCH (21:34)
[2022-12-10 06:52] LABS: BASO % 0.8 % (0-2.0); EOS % 0.5 % (0-4.5); HEMATOCRIT 36.3 % (32.4-45.2); HEMOGLOBIN 12.2 GM/dL (10.7-15.3); LYMPH % 8.3 % (8-40); MCH 30.3 pg (25.7-33.7); MCHC 33.6 g/dl (32.0-36.0); MEAN PLT VOLUME 9.2 fl (7.5-11.1); MONO % 9.9 % (3.8-10.2); NEUT % 80.5 % (42.8-82.8); PLATELET COUNT 196 10^3/uL (134-434); RBC 4.03 M/mm3 (3.60-5.2); RDW 16.8 % (11.6-15.6); WHITE BLOOD COUNT 8.3 K/mm3 (4.0-10.0)
[2022-12-10 07:15] LABS: CALCIUM 9.4 mg/dL (8.5-10.1)
[2022-12-10 07:16] LABS: BLOOD UREA NITROGEN 26.7 mg/dL (7-18)
[2022-12-10 07:19] LABS: CREATININE 1.7 mg/dL (0.55-1.3)
[2022-12-10] MEDS: FUROSEMIDE 20 MG TABLET (FP) PO SCH (10:39)
[2022-12-10] MEDS: ISOSORBIDE MONONITRATE 60 MG TAB.SR.24H (FP) PO SCH (10:39)
[2022-12-10] MEDS: AMIODARONE HCL 200 MG TABLET PO SCH (10:39)
[2022-12-10] MEDS: PANTOPRAZOLE 40 MG TABLET PO SCH (10:40)
[2022-12-10] MEDS: ASCORBIC ACID 500 MG TABLET (FP) PO SCH (10:40)
[2022-12-10] MEDS: APIXABAN 2.5 MG TABLET PO SCH ×3 (10:40→23:47)
[2022-12-10] MEDS: amLODIPine BESYLATE 10 MG TABLET (FP) PO SCH (10:40)
[2022-12-10] MEDS: BUDESONIDE/FORMETEROL FUMARATE 160/4.5 mcg INHALER IH SCH ×2 (10:41→23:17)
[2022-12-10] MEDS: POLYETHYLENE GLYCOL (HEALTHYLAX) 3350 17 GM PACKET PO SCH (17:02)
[2022-12-10] MEDS ORDERED: MINERAL OIL ENEMA 133 ML ENEMA RC ONE (18:40)
[2022-12-10] MEDS: ATORVASTATIN CA 40 MG TABLET (FP) PO SCH ×2 (23:16→23:47)
[2022-12-10] MEDS: traZODone HCL 50 MG TABLET (FP) PO SCH ×2 (23:16→23:47)
[2022-12-10] MEDS: MIRTAZAPINE 15 MG TABLET (FP) PO SCH ×2 (23:17→23:46)
[2022-12-11] MEDS: ISOSORBIDE MONONITRATE 60 MG TAB.SR.24H (FP) PO SCH (09:54)
[2022-12-11] MEDS: PANTOPRAZOLE 40 MG TABLET PO SCH (09:54)
[2022-12-11] MEDS: FUROSEMIDE 20 MG TABLET (FP) PO SCH (09:54)
[2022-12-11] MEDS: APIXABAN 2.5 MG TABLET PO SCH (09:55)
[2022-12-11] MEDS: amLODIPine BESYLATE 10 MG TABLET (FP) PO SCH (09:55)
[2022-12-11] MEDS: POLYETHYLENE GLYCOL (HEALTHYLAX) 3350 17 GM PACKET PO SCH (09:55)
[2022-12-11] MEDS: ASCORBIC ACID 500 MG TABLET (FP) PO SCH (09:55)
[2022-12-11] MEDS: AMIODARONE HCL 200 MG TABLET PO SCH (09:55)
[2022-12-11] MEDS: BUDESONIDE/FORMETEROL FUMARATE 160/4.5 mcg INHALER IH SCH (09:56)
[2022-12-11 11:56] VITALS: BP 130/77; PULSE 54; RESP 19; TEMP 97.7
== END 2022-12-11 13:37 | disposition home or self-care (01) | DRG 291 ==
LOC: JER 11:11 → JERBED 16:22 → J4W 12-09 00:27 → OBSVTOIN 12-09 09:20
PROVIDERS: ADMIT Internal Medicine; ATTEND Internal Medicine
DX: I11.0 Hypertensive heart disease with heart failure (principal); I50.33 Acute on chronic diastolic (congestive) heart failure; I48.20 Chronic atrial fibrillation, unspecified; J96.11 Chronic respiratory failure with hypoxia; I25.119 Atherosclerotic heart disease of native coronary artery with unspecified angina pectoris; K21.9 Gastro-esophageal reflux disease without esophagitis; E11.9 Type 2 diabetes mellitus without complications; J44.9 Chronic obstructive pulmonary disease, unspecified; E78.00 Pure hypercholesterolemia, unspecified; G47.00 Insomnia, unspecified; F03.90 Unspecified dementia, unspecified severity, without behavioral disturbance, psychotic disturbance, mood disturbance, and anxiety; F41.8 Other specified anxiety disorders; Z95.810 Presence of automatic (implantable) cardiac defibrillator
CPT/HCPCS: 0241U-QW; 36415; 71045-TC-FY; 80048; 80053; 81003; 82803; 82962; 83735; 83880; 84484; 85025; 85610; 85730; 87086; 93005; 93010; 97116-GP; 97162-GP; 99285-25; G0378

== ENCOUNTER 2022-12-21 10:53 | Observation (INO) | payer OTHER ==
[2022-12-21 12:05] LABS: EOS % 1.1 % (0-4.5); HEMATOCRIT 37.7 % (32.4-45.2); HEMOGLOBIN 12.6 GM/dL (10.7-15.3); LYMPH % 23.4 % (8-40); MCH 30.2 pg (25.7-33.7); MCHC 33.3 g/dl (32.0-36.0); MEAN CELL VOLUME 90.6 fl (80-96); MEAN PLT VOLUME 8.1 fl (7.5-11.1); MONO % 8.9 % (3.8-10.2); NEUT % 64.6 % (42.8-82.8); PLATELET COUNT 250 10^3/uL (134-434); RBC 4.17 M/mm3 (3.60-5.2); RDW 16.7 % (11.6-15.6)
[2022-12-21 12:31] LABS: CHLORIDE 105 mmol/L (98-107); SODIUM 136 mmol/L (136-145)
[2022-12-21 12:33] LABS: ALBUMIN 3.1 g/dl (3.4-5.0); BLOOD UREA NITROGEN 16.4 mg/dL (7-18); CALCIUM 9.5 mg/dL (8.5-10.1); CO2 30 mmol/L (21-32); GLUCOSE,RANDOM 93 mg/dL (74-106); LIPASE 89 U/L (73-393); MAGNESIUM 1.8 mg/dL (1.8-2.4)
[2022-12-21 12:36] LABS: CREATININE 1.5 mg/dL (0.55-1.3); PHOSPHOROUS 3.6 mg/dL (2.5-4.9); SGOT/AST 104 U/L (15-37); SGPT/ALT 74 U/L (13-61)
[2022-12-21 12:38] LABS: BILIRUBIN,TOTAL 0.7 mg/dL (0.2-1); TOT PROT 7.8 g/dl (6.4-8.2)
[2022-12-21 12:39] LABS: EPI CELLS 5 /uL (0-25.1); HYALINE CASTS 1 /uL (0-3.1); URINE APPEARANCE CLEAR; URINE BACTERIA 7 /uL (0-1359); URINE BILIRUBIN NEGATIVE (NEGATIVE); URINE COLOR YELLOW; URINE GLUCOSE (UA) NEGATIVE (NEGATIVE); URINE KETONE NEGATIVE (NEGATIVE); URINE LEUK ESTERASE NEGATIVE (NEGATIVE); URINE NITRITE NEGATIVE (NEGATIVE); URINE PROTEIN 2+ (NEGATIVE); URINE RBC 15 /uL (0-23.9); URINE WBC 4 /uL (0-25.8)
[2022-12-21 12:39] LABS: ALK PHOS 239 U/L (45-117)
[2022-12-21 12:41] LABS: ANION GAP 1 MMOL/L (8-16); POTASSIUM 6.2 mmol/L (3.5-5.1)
[2022-12-21 13:48] LABS: ANION GAP 5 MMOL/L (8-16); BLOOD UREA NITROGEN 15.2 mg/dL (7-18); CALCIUM 9.3 mg/dL (8.5-10.1); CHLORIDE 106 mmol/L (98-107); CO2 27 mmol/L (21-32); GLUCOSE,RANDOM 99 mg/dL (74-106); POTASSIUM 4.1 mmol/L (3.5-5.1); SODIUM 138 mmol/L (136-145)
[2022-12-21 13:51] LABS: CREATININE 1.4 mg/dL (0.55-1.3)
[2022-12-21] MEDS ORDERED: ALBUTEROL SO4 HFA INHALER IH PRN (15:30)
[2022-12-21 15:37] LABS: N-TERMINAL BNP 2366.1 pg/ml (5-450)
[2022-12-21] MEDS ORDERED: FUROSEMIDE 40 MG/4 ML INJECTABLE VIAL ONE (15:50)
[2022-12-21] MEDS: FUROSEMIDE 40 MG/4 ML INJECTABLE VIAL IVPUSH SCH (15:59)
[2022-12-21] MEDS: INSULIN SLIDING SCALE (NOVOLOG) 1 VIAL SQ SCH (21:48)
[2022-12-21] MEDS: ATORVASTATIN CA 40 MG TABLET (FP) PO SCH (21:49)
[2022-12-21] MEDS: BUDESONIDE/FORMETEROL FUMARATE 80/4.5 mcg INHALER IH SCH (21:49)
[2022-12-21] MEDS: APIXABAN 2.5 MG TABLET PO SCH (21:49)
[2022-12-21] MEDS ORDERED: ARTIFICIAL TEARS (POLYVINYL ALCOHOL) OPTH DROPS OU PRN (22:00)
[2022-12-21] MEDS: PANTOPRAZOLE 20 MG TABLET PO SCH (22:13)
[2022-12-21] MEDS: MELATONIN 5 MG TABLETS PO SCH (22:13)
[2022-12-21] MEDS: MIRTAZAPINE 15 MG TABLET (FP) PO SCH (22:13)
[2022-12-22] MEDS: INSULIN SLIDING SCALE (NOVOLOG) 1 VIAL SQ SCH ×4 (06:35→22:25)
[2022-12-22 08:14] LABS: BASO % 1.2 % (0-2.0); EOS % 1.4 % (0-4.5); HEMATOCRIT 38.3 % (32.4-45.2); HEMOGLOBIN 12.9 GM/dL (10.7-15.3); LYMPH % 26.2 % (8-40); MCH 30.5 pg (25.7-33.7); MCHC 33.8 g/dl (32.0-36.0); MEAN CELL VOLUME 90.3 fl (80-96); MEAN PLT VOLUME 8.6 fl (7.5-11.1); MONO % 10.8 % (3.8-10.2); NEUT % 60.4 % (42.8-82.8); PLATELET COUNT 243 10^3/uL (134-434); RBC 4.24 M/mm3 (3.60-5.2); RDW 16.5 % (11.6-15.6); WHITE BLOOD COUNT 4.3 K/mm3 (4.0-10.0)
[2022-12-22 08:35] LABS: POTASSIUM 3.7 mmol/L (3.5-5.1)
[2022-12-22 08:45] LABS: CALCIUM 9.3 mg/dL (8.5-10.1)
[2022-12-22 08:46] LABS: BLOOD UREA NITROGEN 13.4 mg/dL (7-18); MAGNESIUM 1.8 mg/dL (1.8-2.4)
[2022-12-22 08:48] LABS: CREATININE 1.2 mg/dL (0.55-1.3); PHOSPHOROUS 3.2 mg/dL (2.5-4.9)
[2022-12-22 08:50] LABS: BILIRUBIN,TOTAL 0.6 mg/dL (0.2-1); TOT PROT 7.2 g/dl (6.4-8.2)
[2022-12-22] MEDS ORDERED: AMIODARONE HCL 200 MG TABLET PO SCH (10:00)
[2022-12-22] MEDS: PANTOPRAZOLE 20 MG TABLET PO SCH ×2 (10:45→22:25)
[2022-12-22] MEDS: ASCORBIC ACID 500 MG TABLET (FP) PO SCH (10:45)
[2022-12-22] MEDS: ISOSORBIDE MONONITRATE 60 MG TAB.SR.24H (FP) PO SCH (10:45)
[2022-12-22] MEDS: FUROSEMIDE 40 MG/4 ML INJECTABLE VIAL IVPUSH SCH ×2 (10:45→14:09)
[2022-12-22] MEDS: APIXABAN 2.5 MG TABLET PO SCH ×2 (10:45→22:26)
[2022-12-22] MEDS: CHOLECALCIFEROL (VIT D3 5000 UNITS) 125 MCG TAB PO SCH (10:45)
[2022-12-22] MEDS: BUDESONIDE/FORMETEROL FUMARATE 80/4.5 mcg INHALER IH SCH ×2 (10:46→22:26)
[2022-12-22] MEDS: MIRTAZAPINE 15 MG TABLET (FP) PO SCH (22:25)
[2022-12-22] MEDS: ATORVASTATIN CA 40 MG TABLET (FP) PO SCH (22:25)
[2022-12-22] MEDS: MELATONIN 5 MG TABLETS PO SCH (22:26)
[2022-12-23 06:13] VITALS: RESP 18
[2022-12-23] MEDS: INSULIN SLIDING SCALE (NOVOLOG) 1 VIAL SQ SCH ×3 (07:07→17:21)
[2022-12-23] MEDS: FUROSEMIDE 40 MG/4 ML INJECTABLE VIAL IVPUSH SCH ×2 (07:08→13:43)
[2022-12-23 08:00] LABS: HEMATOCRIT 38.4 % (32.4-45.2); MCH 30.8 pg (25.7-33.7); MCHC 33.8 g/dl (32.0-36.0); PLATELET COUNT 235 10^3/uL (134-434); RBC 4.22 M/mm3 (3.60-5.2); RDW 15.9 % (11.6-15.6); WHITE BLOOD COUNT 5.7 K/mm3 (4.0-10.0)
[2022-12-23 08:14] LABS: POTASSIUM 3.6 mmol/L (3.5-5.1)
[2022-12-23 08:20] LABS: ALBUMIN 3.1 g/dl (3.4-5.0); BLOOD UREA NITROGEN 17.6 mg/dL (7-18); CALCIUM 9.3 mg/dL (8.5-10.1); MAGNESIUM 1.7 mg/dL (1.8-2.4)
[2022-12-23 08:22] LABS: CREATININE 1.3 mg/dL (0.55-1.3); PHOSPHOROUS 3.4 mg/dL (2.5-4.9)
[2022-12-23 08:24] LABS: BILIRUBIN,TOTAL 0.5 mg/dL (0.2-1); TOT PROT 7.2 g/dl (6.4-8.2)
[2022-12-23] MEDS ORDERED: AMIODARONE HCL 200 MG TABLET PO SCH (08:32)
[2022-12-23] MEDS ORDERED: MAGNESIUM SULF 50% (8.12 MEQ/2 ML-1 GM VIAL) IVPB ONE (09:18)
[2022-12-23 10:59] VITALS: PULSE 60
[2022-12-23] MEDS: CHOLECALCIFEROL (VIT D3 5000 UNITS) 125 MCG TAB PO SCH (11:01)
[2022-12-23] MEDS: APIXABAN 2.5 MG TABLET PO SCH (11:02)
[2022-12-23] MEDS: ISOSORBIDE MONONITRATE 60 MG TAB.SR.24H (FP) PO SCH (11:02)
[2022-12-23] MEDS: BUDESONIDE/FORMETEROL FUMARATE 80/4.5 mcg INHALER IH SCH (11:02)
[2022-12-23] MEDS: PANTOPRAZOLE 20 MG TABLET PO SCH (11:02)
[2022-12-23] MEDS: ASCORBIC ACID 500 MG TABLET (FP) PO SCH (11:02)
[2022-12-23 14:47] VITALS: BMI 18.1
[2022-12-23 14:57] VITALS: BP 108/62; TEMP 98.1
== END 2022-12-23 18:09 ==
LOC: JER 10:53 → UNDOADMOB 13:40 → JERBED 13:40 → OBSVTOIN 15:26 → INTOOBSV 15:26 → JERBED 17:56 → J4W 19:33
PROVIDERS: ADMIT Internal Medicine; ATTEND Internal Medicine
PROC: 3E03329 Introduction of Other Anti-infective into Peripheral Vein, Percutaneous Approach (ICD-10-PCS; principal; 2022-12-21)
PROC: 3E033GC Introduction of Other Therapeutic Substance into Peripheral Vein, Percutaneous Approach (ICD-10-PCS; 2022-12-21)
PROC: 3E0F7SF Introduction of Other Gas into Respiratory Tract, Via Natural or Artificial Opening (ICD-10-PCS; 2022-12-21)
DX: I50.33 Acute on chronic diastolic (congestive) heart failure (principal); I11.0 Hypertensive heart disease with heart failure; J96.02 Acute respiratory failure with hypercapnia; I48.0 Paroxysmal atrial fibrillation; R07.89 Other chest pain; E11.9 Type 2 diabetes mellitus without complications; J45.909 Unspecified asthma, uncomplicated; K21.9 Gastro-esophageal reflux disease without esophagitis; E78.5 Hyperlipidemia, unspecified; Z86.73 Personal history of transient ischemic attack (TIA), and cerebral infarction without residual deficits; Z79.01 Long term (current) use of anticoagulants; Z88.0 Allergy status to penicillin; Z95.810 Presence of automatic (implantable) cardiac defibrillator
CPT/HCPCS: 0241U-QW; 36415; 71045-TC-FY; 80048; 80053; 81003; 82962; 83690; 83735; 83880; 84100; 84484; 85025; 85027; 86140; 87086; 87899; 93005; 93010; 94640; 96365; 96375; 96376; 99285-25; G0378

== ENCOUNTER 2023-01-18 00:07 | Inpatient (IN) | payer OTHER ==
[2023-01-18 01:44] LABS: EOS % 0.4 % (0-4.5); HEMOGLOBIN 11.7 GM/dL (10.7-15.3); MCH 30.6 pg (25.7-33.7)
[2023-01-18 01:49] LABS: BASO % 0.8 % (0-2.0); HEMATOCRIT 35.3 % (32.4-45.2); LYMPH % 12.1 % (8-40); MCHC 33.3 g/dl (32.0-36.0); NEUT % 79.7 % (42.8-82.8); PLATELET COUNT 180 10^3/uL (134-434); RBC 3.83 M/mm3 (3.60-5.2); RDW 15.9 % (11.6-15.6)
[2023-01-18 01:55] LABS: INR 1.25 (0.83-1.09); PROTHROMBIN TIME (PATIENT) 14.5 SEC (9.7-13.0)
[2023-01-18 01:57] LABS: VENOUS BASE EXCESS 2.2 mmol/L (-2-2); VENOUS O2 SATURATION 49.5 % (70-80); VENOUS PCO2 60.2 mmHg (38-52); VENOUS PH 7.312 (7.310-7.410)
[2023-01-18 01:58] LABS: ACTIVATED PTT 27.6 SECONDS (25.2-36.5)
[2023-01-18 02:07] LABS: POTASSIUM 3.7 mmol/L (3.5-5.1)
[2023-01-18 02:09] LABS: CALCIUM 9.8 mg/dL (8.5-10.1)
[2023-01-18 02:10] LABS: ALBUMIN 3.4 g/dl (3.4-5.0); BLOOD UREA NITROGEN 31.4 mg/dL (7-18); MAGNESIUM 1.8 mg/dL (1.8-2.4)
[2023-01-18] MEDS ORDERED: CEFEPIME HCL/D5W 1 GM/50 ML BAG IVPB ONE (02:12)
[2023-01-18] MEDS ORDERED: VANCOMYCIN 1 GM in D5W (PRE-DOCKED) 1,000 MG/250 ML (RESTRICTED TO ID ONLY IVPB ONE (02:12)
[2023-01-18 02:13] LABS: CREATININE 1.6 mg/dL (0.55-1.3)
[2023-01-18 02:14] LABS: BILIRUBIN,TOTAL 0.3 mg/dL (0.2-1)
[2023-01-18 02:15] LABS: TOT PROT 7.9 g/dl (6.4-8.2)
[2023-01-18 02:18] LABS: N-TERMINAL BNP 4579.6 pg/ml (5-450)
[2023-01-18] MEDS ORDERED: CEFEPIME 1 GM/100 ML BAG IVPB ONE (02:38)
[2023-01-18] MEDS ORDERED: VANCOMYCIN/WATER FOR INJ (PEG) 1,000 MG/200 ML BAG IVPB ONE ×2 (02:38→02:39)
[2023-01-18] MEDS ORDERED: FUROSEMIDE 40 MG/4 ML INJECTABLE VIAL IVPUSH ONE ×2 (03:50→04:55)
[2023-01-18] MEDS ORDERED: ALBUTEROL SO4 HFA INHALER IH PRN (04:49)
[2023-01-18] MEDS ORDERED: MAG HYDROX/AL HYDROX/SIMETH 30 ML UNIT-DOSE CUP PO PRN (06:11)
[2023-01-18] MEDS: AMIODARONE HCL 200 MG TABLET PO SCH ×2 (06:38→10:26)
[2023-01-18] MEDS: INSULIN SLIDING SCALE (NOVOLOG) 1 VIAL SQ SCH ×4 (06:39→21:38)
[2023-01-18] MEDS: PANTOPRAZOLE 20 MG TABLET PO SCH (10:25)
[2023-01-18] MEDS: metoPROLOL SUCCINATE 25 MG TAB.SR.24H (FP) PO SCH ×2 (10:26→21:39)
[2023-01-18] MEDS: ISOSORBIDE MONONITRATE 60 MG TAB.SR.24H (FP) PO SCH (10:26)
[2023-01-18] MEDS: APIXABAN 2.5 MG TABLET PO SCH ×2 (10:26→21:38)
[2023-01-18] MEDS: FUROSEMIDE 40 MG, FUROSEMIDE 20 MG PO SCH (10:26)
[2023-01-18] MEDS: ARTIFICIAL TEARS (POLYVINYL ALCOHOL) OPTH DROPS OU SCH ×2 (10:27→21:41)
[2023-01-18] MEDS: LIDOCAINE 5% TOPICAL PATCH TP SCH (11:23)
[2023-01-18] MEDS: CHOLECALCIFEROL (VIT D3) 5000 UNITS (125 MCG) CAP PO SCH (14:15)
[2023-01-18] MEDS ORDERED: INSULIN (NOVOLOG) ASPART 100 UNITS/ML 10ML VIAL ONE (17:02)
[2023-01-18] MEDS: LIDOCAINE PATCH REMOVAL MC SCH (21:38)
[2023-01-18] MEDS: ACETAMINOPHEN 325 MG TABLET (FP) PO PRN (21:39)
[2023-01-18] MEDS: MIRTAZAPINE 15 MG TABLET (FP) PO SCH (21:39)
[2023-01-19] MEDS ORDERED: VANCOMYCIN/WATER FOR INJ (PEG) 750 MG/150 ML BAG IVPB SCH (04:00)
[2023-01-19] MEDS ORDERED: CEFEPIME 2 GM in DEXTROSE 5%-WATER 100 ML IVPB SCH (06:00)
[2023-01-19] MEDS: INSULIN SLIDING SCALE (NOVOLOG) 1 VIAL SQ SCH ×4 (06:19→22:11)
[2023-01-19 07:29] LABS: BASO % 0.5 % (0-2.0); EOS % 0.8 % (0-4.5); HEMATOCRIT 34.6 % (32.4-45.2); HEMOGLOBIN 11.9 GM/dL (10.7-15.3); MCH 31.5 pg (25.7-33.7); MCHC 34.4 g/dl (32.0-36.0); MEAN CELL VOLUME 91.5 fl (80-96); MEAN PLT VOLUME 9.9 fl (7.5-11.1); MONO % 10.5 % (3.8-10.2); NEUT % 71.2 % (42.8-82.8); PLATELET COUNT 166 10^3/uL (134-434); RBC 3.78 M/mm3 (3.60-5.2); RDW 15.6 % (11.6-15.6)
[2023-01-19 07:34] LABS: POTASSIUM 3.3 mmol/L (3.5-5.1)
[2023-01-19 07:40] LABS: CALCIUM 9.2 mg/dL (8.5-10.1)
[2023-01-19 07:41] LABS: BLOOD UREA NITROGEN 27.7 mg/dL (7-18)
[2023-01-19 07:43] LABS: CREATININE 1.2 mg/dL (0.55-1.3)
[2023-01-19 07:45] LABS: BILIRUBIN,TOTAL 0.8 mg/dL (0.2-1); TOT PROT 7.2 g/dl (6.4-8.2)
[2023-01-19] MEDS ORDERED: POTASSIUM CHLORIDE ORAL LIQUID 20 MEQ/15 ML PO ONE ×2 (08:54→14:00)
[2023-01-19] MEDS: ARTIFICIAL TEARS (POLYVINYL ALCOHOL) OPTH DROPS OU SCH ×2 (09:05→22:04)
[2023-01-19] MEDS: PANTOPRAZOLE 20 MG TABLET PO SCH (09:05)
[2023-01-19] MEDS: LIDOCAINE 5% TOPICAL PATCH TP SCH (09:05)
[2023-01-19] MEDS: ISOSORBIDE MONONITRATE 60 MG TAB.SR.24H (FP) PO SCH (09:05)
[2023-01-19] MEDS: CHOLECALCIFEROL (VIT D3) 5000 UNITS (125 MCG) CAP PO SCH (09:06)
[2023-01-19] MEDS: FUROSEMIDE 40 MG, FUROSEMIDE 20 MG PO SCH (09:07)
[2023-01-19] MEDS: APIXABAN 2.5 MG TABLET PO SCH ×2 (09:07→22:04)
[2023-01-19] MEDS: metoPROLOL SUCCINATE 25 MG TAB.SR.24H (FP) PO SCH ×2 (09:07→22:04)
[2023-01-19] MEDS: AMIODARONE HCL 200 MG TABLET PO SCH (09:08)
[2023-01-19] MEDS ORDERED: FUROSEMIDE 20 MG TABLET (FP) PO SCH (10:00)
[2023-01-19] MEDS: MIRTAZAPINE 15 MG TABLET (FP) PO SCH (22:04)
[2023-01-19] MEDS: LIDOCAINE PATCH REMOVAL MC SCH (22:05)
[2023-01-20] MEDS ORDERED: VANCOMYCIN/WATER FOR INJ (PEG) 750 MG/150 ML BAG IVPB SCH (04:00)
[2023-01-20] MEDS ORDERED: CEFEPIME 2 GM in DEXTROSE 5%-WATER 100 ML IVPB SCH (06:00)
[2023-01-20] MEDS: INSULIN SLIDING SCALE (NOVOLOG) 1 VIAL SQ SCH ×4 (06:33→21:47)
[2023-01-20 07:58] LABS: BASO % 1.1 % (0-2.0); EOS % 0.5 % (0-4.5); HEMATOCRIT 36.6 % (32.4-45.2); HEMOGLOBIN 12.4 GM/dL (10.7-15.3); LYMPH % 15.4 % (8-40); MCH 31.3 pg (25.7-33.7); MCHC 33.8 g/dl (32.0-36.0); MEAN CELL VOLUME 92.6 fl (80-96); MEAN PLT VOLUME 10.8 fl (7.5-11.1); MONO % 10.1 % (3.8-10.2); NEUT % 72.9 % (42.8-82.8); PLATELET COUNT 165 10^3/uL (134-434); RBC 3.95 M/mm3 (3.60-5.2); RDW 15.3 % (11.6-15.6); WHITE BLOOD COUNT 7.6 K/mm3 (4.0-10.0)
[2023-01-20 08:25] LABS: POTASSIUM 4.4 mmol/L (3.5-5.1)
[2023-01-20 08:29] LABS: CALCIUM 9.9 mg/dL (8.5-10.1)
[2023-01-20 08:30] LABS: BLOOD UREA NITROGEN 22.3 mg/dL (7-18); MAGNESIUM 1.8 mg/dL (1.8-2.4)
[2023-01-20] MEDS: AMIODARONE HCL 200 MG TABLET PO SCH (09:14)
[2023-01-20] MEDS: LIDOCAINE 5% TOPICAL PATCH TP SCH (09:14)
[2023-01-20] MEDS: APIXABAN 2.5 MG TABLET PO SCH ×2 (09:14→21:37)
[2023-01-20] MEDS: PANTOPRAZOLE 20 MG TABLET PO SCH (09:14)
[2023-01-20] MEDS: metoPROLOL SUCCINATE 25 MG TAB.SR.24H (FP) PO SCH ×2 (09:14→21:38)
[2023-01-20] MEDS: FUROSEMIDE 40 MG/4 ML INJECTABLE VIAL IVPUSH SCH ×2 (09:14→09:28)
[2023-01-20] MEDS: ISOSORBIDE MONONITRATE 60 MG TAB.SR.24H (FP) PO SCH (09:14)
[2023-01-20] MEDS: CHOLECALCIFEROL (VIT D3) 5000 UNITS (125 MCG) CAP PO SCH (09:15)
[2023-01-20] MEDS: ARTIFICIAL TEARS (POLYVINYL ALCOHOL) OPTH DROPS OU SCH ×2 (09:15→21:46)
[2023-01-20] MEDS ORDERED: FUROSEMIDE 20 MG TABLET (FP) PO ONE (12:11)
[2023-01-20 12:39] LABS: N-TERMINAL BNP 4361.5 pg/ml (5-450)
[2023-01-20 12:49] LABS: EPI CELLS 8 /uL (0-25.1); HYALINE CASTS 1 /uL (0-3.1); URINE APPEARANCE CLEAR; URINE BACTERIA 20 /uL (0-1359); URINE BILIRUBIN NEGATIVE (NEGATIVE); URINE COLOR YELLOW; URINE GLUCOSE (UA) NEGATIVE (NEGATIVE); URINE KETONE NEGATIVE (NEGATIVE); URINE LEUK ESTERASE NEGATIVE (NEGATIVE); URINE NITRITE NEGATIVE (NEGATIVE); URINE PROTEIN 1+ (NEGATIVE); URINE RBC 15 /uL (0-23.9); URINE UROBILINOGEN 0.2 mg/dL (0.2-1.0); URINE WBC 4 /uL (0-25.8)
[2023-01-20] MEDS: MIRTAZAPINE 15 MG TABLET (FP) PO SCH (21:38)
[2023-01-20] MEDS: QUEtiapine FUMARATE 50 MG TABLET PO PRN (21:38)
[2023-01-20] MEDS: LIDOCAINE PATCH REMOVAL MC SCH (21:47)
[2023-01-21] MEDS: INSULIN SLIDING SCALE (NOVOLOG) 1 VIAL SQ SCH ×4 (07:22→22:50)
[2023-01-21 07:25] LABS: EOS % 1.1 % (0-4.5); HEMATOCRIT 36.1 % (32.4-45.2); HEMOGLOBIN 12.1 GM/dL (10.7-15.3); LYMPH % 16.7 % (8-40); MCH 30.7 pg (25.7-33.7); MCHC 33.5 g/dl (32.0-36.0); MEAN CELL VOLUME 91.7 fl (80-96); MEAN PLT VOLUME 10.1 fl (7.5-11.1); MONO % 12.4 % (3.8-10.2); NEUT % 68.8 % (42.8-82.8); PLATELET COUNT 165 10^3/uL (134-434); RBC 3.93 M/mm3 (3.60-5.2); RDW 15.1 % (11.6-15.6); WHITE BLOOD COUNT 6.4 K/mm3 (4.0-10.0)
[2023-01-21 07:46] LABS: CALCIUM 9.7 mg/dL (8.5-10.1)
[2023-01-21 07:47] LABS: BLOOD UREA NITROGEN 20.9 mg/dL (7-18)
[2023-01-21 07:50] LABS: CREATININE 0.8 mg/dL (0.55-1.3)
[2023-01-21] MEDS: AMIODARONE HCL 200 MG TABLET PO SCH (10:12)
[2023-01-21] MEDS: CHOLECALCIFEROL (VIT D3) 5000 UNITS (125 MCG) CAP PO SCH (10:12)
[2023-01-21] MEDS: APIXABAN 2.5 MG TABLET PO SCH ×2 (10:12→21:52)
[2023-01-21] MEDS: PANTOPRAZOLE 20 MG TABLET PO SCH (10:12)
[2023-01-21] MEDS: metoPROLOL SUCCINATE 25 MG TAB.SR.24H (FP) PO SCH ×2 (10:13→21:52)
[2023-01-21] MEDS: LIDOCAINE 5% TOPICAL PATCH TP SCH (10:13)
[2023-01-21] MEDS: ISOSORBIDE MONONITRATE 60 MG TAB.SR.24H (FP) PO SCH (10:13)
[2023-01-21] MEDS: ARTIFICIAL TEARS (POLYVINYL ALCOHOL) OPTH DROPS OU SCH ×2 (10:14→21:52)
[2023-01-21] MEDS: FUROSEMIDE 40 MG TABLET (FP) PO SCH (11:22)
[2023-01-21] MEDS: LISINOPRIL 5 MG TABLET PO SCH (14:36)
[2023-01-21] MEDS: MIRTAZAPINE 15 MG TABLET (FP) PO SCH (21:52)
[2023-01-21] MEDS: QUEtiapine FUMARATE 50 MG TABLET PO PRN (21:52)
[2023-01-21] MEDS: LIDOCAINE PATCH REMOVAL MC SCH (21:52)
[2023-01-22] MEDS: INSULIN SLIDING SCALE (NOVOLOG) 1 VIAL SQ SCH ×3 (06:31→16:11)
[2023-01-22] MEDS: FUROSEMIDE 40 MG TABLET (FP) PO SCH (10:01)
[2023-01-22] MEDS: AMIODARONE HCL 200 MG TABLET PO SCH (10:01)
[2023-01-22] MEDS: PANTOPRAZOLE 20 MG TABLET PO SCH (10:01)
[2023-01-22] MEDS: ISOSORBIDE MONONITRATE 60 MG TAB.SR.24H (FP) PO SCH (10:01)
[2023-01-22] MEDS: CHOLECALCIFEROL (VIT D3) 5000 UNITS (125 MCG) CAP PO SCH (10:01)
[2023-01-22] MEDS: LISINOPRIL 5 MG TABLET PO SCH (10:01)
[2023-01-22] MEDS: ARTIFICIAL TEARS (POLYVINYL ALCOHOL) OPTH DROPS OU SCH ×2 (10:02→22:00)
[2023-01-22] MEDS: APIXABAN 2.5 MG TABLET PO SCH ×2 (10:02→22:00)
[2023-01-22] MEDS: metoPROLOL SUCCINATE 25 MG TAB.SR.24H (FP) PO SCH ×2 (10:02→22:45)
[2023-01-22] MEDS: LIDOCAINE 5% TOPICAL PATCH TP SCH (10:02)
[2023-01-22 11:07] LABS: POTASSIUM 3.9 mmol/L (3.5-5.1)
[2023-01-22 11:09] LABS: CALCIUM 9.2 mg/dL (8.5-10.1)
[2023-01-22 11:13] LABS: CREATININE 1.4 mg/dL (0.55-1.3)
[2023-01-22 11:15] LABS: BLOOD UREA NITROGEN 36.5 mg/dL (7-18)
[2023-01-22] MEDS: MIRTAZAPINE 15 MG TABLET (FP) PO SCH (22:44)
[2023-01-22] MEDS: QUEtiapine FUMARATE 25 MG TABLET PO PRN (22:45)
[2023-01-22] MEDS: LIDOCAINE PATCH REMOVAL MC SCH (22:47)
[2023-01-23] MEDS: INSULIN SLIDING SCALE (NOVOLOG) 1 VIAL SQ SCH ×4 (07:16→17:38)
[2023-01-23 08:08] LABS: POTASSIUM 3.7 mmol/L (3.5-5.1)
[2023-01-23 08:11] LABS: ALBUMIN 2.7 g/dl (3.4-5.0); BLOOD UREA NITROGEN 33.2 mg/dL (7-18); CALCIUM 9.4 mg/dL (8.5-10.1)
[2023-01-23 08:14] LABS: CREATININE 1.2 mg/dL (0.55-1.3)
[2023-01-23 08:16] LABS: BILIRUBIN,TOTAL 0.4 mg/dL (0.2-1); TOT PROT 6.8 g/dl (6.4-8.2)
[2023-01-23] MEDS: ARTIFICIAL TEARS (POLYVINYL ALCOHOL) OPTH DROPS OU SCH ×2 (10:35→22:10)
[2023-01-23] MEDS: LIDOCAINE 5% TOPICAL PATCH TP SCH (10:35)
[2023-01-23] MEDS: PANTOPRAZOLE 20 MG TABLET PO SCH (10:37)
[2023-01-23] MEDS: ISOSORBIDE MONONITRATE 60 MG TAB.SR.24H (FP) PO SCH (10:37)
[2023-01-23] MEDS: APIXABAN 2.5 MG TABLET PO SCH ×2 (10:37→22:00)
[2023-01-23] MEDS: CHOLECALCIFEROL (VIT D3) 5000 UNITS (125 MCG) CAP PO SCH (10:37)
[2023-01-23] MEDS: AMIODARONE HCL 200 MG TABLET PO SCH (10:37)
[2023-01-23] MEDS: metoPROLOL SUCCINATE 25 MG TAB.SR.24H (FP) PO SCH ×2 (10:37→22:00)
[2023-01-23 14:41] VITALS: BMI 17.9
[2023-01-23] MEDS: LIDOCAINE PATCH REMOVAL MC SCH (22:00)
[2023-01-23] MEDS: MIRTAZAPINE 15 MG TABLET (FP) PO SCH (22:01)
[2023-01-23] MEDS: QUEtiapine FUMARATE 25 MG TABLET PO PRN (22:01)
[2023-01-24 08:15] LABS: EOS % 1.4 % (0-4.5); HEMATOCRIT 34.2 % (32.4-45.2); HEMOGLOBIN 11.8 GM/dL (10.7-15.3); LYMPH % 23.7 % (8-40); MCH 31.4 pg (25.7-33.7); MCHC 34.3 g/dl (32.0-36.0); MEAN CELL VOLUME 91.4 fl (80-96); MEAN PLT VOLUME 9.7 fl (7.5-11.1); MONO % 7.8 % (3.8-10.2); NEUT % 66.1 % (42.8-82.8); PLATELET COUNT 199 10^3/uL (134-434); RBC 3.74 M/mm3 (3.60-5.2); WHITE BLOOD COUNT 5.2 K/mm3 (4.0-10.0)
[2023-01-24 08:56] LABS: POTASSIUM 4.1 mmol/L (3.5-5.1)
[2023-01-24 08:58] LABS: BLOOD UREA NITROGEN 29.8 mg/dL (7-18); CALCIUM 9.5 mg/dL (8.5-10.1)
[2023-01-24 09:01] LABS: CREATININE 1.2 mg/dL (0.55-1.3)
[2023-01-24] MEDS: PANTOPRAZOLE 20 MG TABLET PO SCH (09:17)
[2023-01-24] MEDS: metoPROLOL SUCCINATE 25 MG TAB.SR.24H (FP) PO SCH ×2 (09:17→21:23)
[2023-01-24] MEDS: CHOLECALCIFEROL (VIT D3) 5000 UNITS (125 MCG) CAP PO SCH (09:17)
[2023-01-24] MEDS: ISOSORBIDE MONONITRATE 60 MG TAB.SR.24H (FP) PO SCH (09:17)
[2023-01-24] MEDS: APIXABAN 2.5 MG TABLET PO SCH ×2 (09:17→21:23)
[2023-01-24] MEDS: AMIODARONE HCL 200 MG TABLET PO SCH (09:18)
[2023-01-24] MEDS: LIDOCAINE 5% TOPICAL PATCH TP SCH (09:18)
[2023-01-24] MEDS: MULTIVITAMINS (DAILY MVI) TABLET (FP) PO SCH (09:19)
[2023-01-24] MEDS: ARTIFICIAL TEARS (POLYVINYL ALCOHOL) OPTH DROPS OU SCH ×2 (09:20→21:32)
[2023-01-24] MEDS: INSULIN SLIDING SCALE (NOVOLOG) 1 VIAL SQ SCH ×5 (12:30→21:32)
[2023-01-24] MEDS: MIRTAZAPINE 15 MG TABLET (FP) PO SCH (21:23)
[2023-01-24] MEDS: ACETAMINOPHEN 325 MG TABLET (FP) PO PRN (21:24)
[2023-01-24] MEDS: QUEtiapine FUMARATE 25 MG TABLET PO PRN (21:24)
[2023-01-24] MEDS ORDERED: INSULIN (NOVOLOG) ASPART 100 UNITS/ML 10ML VIAL ONE (21:36)
[2023-01-24] MEDS: LIDOCAINE PATCH REMOVAL MC SCH (21:52)
[2023-01-25 03:49] VITALS: RESP 18
[2023-01-25] MEDS: INSULIN SLIDING SCALE (NOVOLOG) 1 VIAL SQ SCH ×4 (06:25→21:21)
[2023-01-25] MEDS: LIDOCAINE 5% TOPICAL PATCH TP SCH (10:04)
[2023-01-25] MEDS: metoPROLOL SUCCINATE 25 MG TAB.SR.24H (FP) PO SCH ×2 (10:36→21:21)
[2023-01-25] MEDS: AMIODARONE HCL 200 MG TABLET PO SCH (10:36)
[2023-01-25] MEDS: FUROSEMIDE 40 MG TABLET (FP) PO SCH (10:36)
[2023-01-25] MEDS: CHOLECALCIFEROL (VIT D3) 5000 UNITS (125 MCG) CAP PO SCH (10:36)
[2023-01-25] MEDS: ISOSORBIDE MONONITRATE 60 MG TAB.SR.24H (FP) PO SCH (10:36)
[2023-01-25] MEDS: APIXABAN 2.5 MG TABLET PO SCH ×2 (10:36→21:21)
[2023-01-25] MEDS: ARTIFICIAL TEARS (POLYVINYL ALCOHOL) OPTH DROPS OU SCH ×2 (10:38→21:28)
[2023-01-25] MEDS: MULTIVITAMINS (DAILY MVI) TABLET (FP) PO SCH (10:38)
[2023-01-25] MEDS: PANTOPRAZOLE 20 MG TABLET PO SCH (10:38)
[2023-01-25] MEDS ORDERED: INSULIN (NOVOLOG) ASPART 100 UNITS/ML 10ML VIAL ONE (17:09)
[2023-01-25] MEDS: MIRTAZAPINE 15 MG TABLET (FP) PO SCH (21:21)
[2023-01-25] MEDS: ACETAMINOPHEN 325 MG TABLET (FP) PO PRN (21:22)
[2023-01-25] MEDS: QUEtiapine FUMARATE 25 MG TABLET PO PRN (21:22)
[2023-01-25] MEDS: LIDOCAINE PATCH REMOVAL MC SCH (21:29)
[2023-01-26] MEDS: INSULIN SLIDING SCALE (NOVOLOG) 1 VIAL SQ SCH (06:09)
[2023-01-26] MEDS: PANTOPRAZOLE 20 MG TABLET PO SCH (09:50)
[2023-01-26] MEDS: ISOSORBIDE MONONITRATE 60 MG TAB.SR.24H (FP) PO SCH (09:50)
[2023-01-26] MEDS: CHOLECALCIFEROL (VIT D3) 5000 UNITS (125 MCG) CAP PO SCH (09:50)
[2023-01-26] MEDS: ARTIFICIAL TEARS (POLYVINYL ALCOHOL) OPTH DROPS OU SCH (09:50)
[2023-01-26] MEDS: FUROSEMIDE 40 MG TABLET (FP) PO SCH (09:51)
[2023-01-26] MEDS: AMIODARONE HCL 200 MG TABLET PO SCH (09:51)
[2023-01-26] MEDS: MULTIVITAMINS (DAILY MVI) TABLET (FP) PO SCH (09:51)
[2023-01-26] MEDS: LIDOCAINE 5% TOPICAL PATCH TP SCH (09:51)
[2023-01-26] MEDS: APIXABAN 2.5 MG TABLET PO SCH (09:51)
[2023-01-26] MEDS: metoPROLOL SUCCINATE 25 MG TAB.SR.24H (FP) PO SCH (09:51)
[2023-01-26 10:03] VITALS: BP 116/66; PULSE 88; TEMP 97.8
== END 2023-01-26 11:34 | disposition home or self-care (01) | DRG 291 ==
LOC: JER 00:07 → JERBED 02:13 → J4W 04:31
PROVIDERS: ADMIT Internal Medicine; ATTEND Internal Medicine
DX: I13.0 Hypertensive heart and chronic kidney disease with heart failure and stage 1 through stage 4 chronic kidney disease, or unspecified chronic kidney disease (principal); I50.33 Acute on chronic diastolic (congestive) heart failure; J18.9 Pneumonia, unspecified organism; N17.9 Acute kidney failure, unspecified; J44.0 Chronic obstructive pulmonary disease with (acute) lower respiratory infection; I47.1 Supraventricular tachycardia; Z68.1 Body mass index [BMI] 19.9 or less, adult; J98.11 Atelectasis; F03.90 Unspecified dementia, unspecified severity, without behavioral disturbance, psychotic disturbance, mood disturbance, and anxiety; E11.22 Type 2 diabetes mellitus with diabetic chronic kidney disease; N18.9 Chronic kidney disease, unspecified; D64.9 Anemia, unspecified; I48.0 Paroxysmal atrial fibrillation; E78.5 Hyperlipidemia, unspecified; I25.10 Atherosclerotic heart disease of native coronary artery without angina pectoris; K21.9 Gastro-esophageal reflux disease without esophagitis; E87.6 Hypokalemia; I42.9 Cardiomyopathy, unspecified; R74.01 Elevation of levels of liver transaminase levels
CPT/HCPCS: 0241U-QW; 36415; 71045-TC-FY; 80048; 80053; 81003; 82803; 82962; 83735; 83880; 84484; 85025; 85610; 85730; 87635; 93005; 93010; 99285-25

== ENCOUNTER 2023-01-27 00:44 | Inpatient (IN) | payer OTHER ==
[2023-01-27 01:24] LABS: BASO % 0.2 % (0-2.0); EOS % 0.9 % (0-4.5); HEMATOCRIT 39.3 % (32.4-45.2); HEMOGLOBIN 12.4 GM/dL (10.7-15.3); LYMPH % 18.1 % (8-40); MCH 30.1 pg (25.7-33.7); MCHC 31.6 g/dl (32.0-36.0); MEAN CELL VOLUME 95.1 fl (80-96); MEAN PLT VOLUME 9.8 fl (7.5-11.1); MONO % 7.3 % (3.8-10.2); NEUT % 73.5 % (42.8-82.8); PLATELET COUNT 230 10^3/uL (134-434); RBC 4.13 M/mm3 (3.60-5.2); RDW 14.8 % (11.6-15.6); WHITE BLOOD COUNT 8.4 K/mm3 (4.0-10.0)
[2023-01-27 01:31] LABS: INR 1.31 (0.83-1.09); PROTHROMBIN TIME (PATIENT) 15.1 SEC (9.7-13.0)
[2023-01-27 01:33] LABS: ACTIVATED PTT 28.5 SECONDS (25.2-36.5)
[2023-01-27 03:02] LABS: POTASSIUM 4.4 mmol/L (3.5-5.1)
[2023-01-27 03:05] LABS: BLOOD UREA NITROGEN 34.5 mg/dL (7-18); CALCIUM 9.7 mg/dL (8.5-10.1)
[2023-01-27 03:08] LABS: CREATININE 1.5 mg/dL (0.55-1.3)
[2023-01-27 03:09] LABS: BILIRUBIN,TOTAL 0.4 mg/dL (0.2-1)
[2023-01-27 03:10] LABS: TOT PROT 7.9 g/dl (6.4-8.2)
[2023-01-27 03:11] LABS: ALBUMIN 3.5 g/dl (3.4-5.0); N-TERMINAL BNP 4363.2 pg/ml (5-450)
[2023-01-27] MEDS ORDERED: FUROSEMIDE 40 MG/4 ML INJECTABLE VIAL IVPUSH ONE (03:16)
[2023-01-27] MEDS ORDERED: FUROSEMIDE 40 MG/4 ML INJECTABLE VIAL ONE (03:20)
[2023-01-27] MEDS ORDERED: MAG HYDROX/AL HYDROX/SIMETH 30 ML UNIT-DOSE CUP PO PRN (04:30)
[2023-01-27] MEDS ORDERED: ALBUTEROL SO4 HFA INHALER IH PRN (04:30)
[2023-01-27] MEDS ORDERED: ACETAMINOPHEN 325 MG TABLET (FP) PO PRN (04:30)
[2023-01-27 08:26] VITALS: BMI 20.1
[2023-01-27] MEDS: metoPROLOL SUCCINATE 25 MG TAB.SR.24H (FP) PO SCH ×2 (09:13→21:46)
[2023-01-27] MEDS: PANTOPRAZOLE 20 MG TABLET PO SCH (09:13)
[2023-01-27] MEDS: AMIODARONE HCL 200 MG TABLET PO SCH (09:14)
[2023-01-27] MEDS: ASCORBIC ACID 500 MG TABLET (FP) PO SCH (09:14)
[2023-01-27] MEDS: ISOSORBIDE MONONITRATE 60 MG TAB.SR.24H (FP) PO SCH (09:14)
[2023-01-27] MEDS: FUROSEMIDE 40 MG TABLET (FP) PO SCH (09:14)
[2023-01-27] MEDS: APIXABAN 2.5 MG TABLET PO SCH ×2 (09:14→21:46)
[2023-01-27] MEDS: MULTIVITAMINS (DAILY MVI) TABLET (FP) PO SCH (09:15)
[2023-01-27] MEDS ORDERED: PATIENT'S OWN MEDICATION (NON-FORMULARY) (Carboxymethylcellulose Sodium [Refresh Plus] 1 E OU SCH (10:00)
[2023-01-27] MEDS ORDERED: CHOLECALCIFEROL (VIT D3 5000 UNITS) 125 MCG TAB PO SCH (10:00)
[2023-01-27] MEDS ORDERED: amLODIPine BESYLATE 5 MG TABLET (FP) PO SCH (11:15)
[2023-01-27] MEDS: BUDESONIDE/FORMETEROL FUMARATE 160/4.5 mcg INHALER IH SCH ×2 (12:04→21:49)
[2023-01-27] MEDS: ARTIFICIAL TEARS (POLYVINYL ALCOHOL) OPTH DROPS OU SCH ×2 (12:05→21:49)
[2023-01-27] MEDS: ATORVASTATIN CA 40 MG TABLET (FP) PO SCH (21:46)
[2023-01-27] MEDS: MIRTAZAPINE 15 MG TABLET (FP) PO SCH (21:46)
[2023-01-28] MEDS: APIXABAN 2.5 MG TABLET PO SCH ×2 (09:27→21:29)
[2023-01-28] MEDS: FUROSEMIDE 40 MG TABLET (FP) PO SCH (09:27)
[2023-01-28] MEDS: AMIODARONE HCL 200 MG TABLET PO SCH (09:27)
[2023-01-28] MEDS: PANTOPRAZOLE 20 MG TABLET PO SCH (09:27)
[2023-01-28] MEDS: MULTIVITAMINS (DAILY MVI) TABLET (FP) PO SCH (09:28)
[2023-01-28] MEDS: CHOLECALCIFEROL (VIT D3) 5000 UNITS (125 MCG) CAP PO SCH (09:28)
[2023-01-28] MEDS: BUDESONIDE/FORMETEROL FUMARATE 160/4.5 mcg INHALER IH SCH ×2 (09:28→21:29)
[2023-01-28] MEDS: ASCORBIC ACID 500 MG TABLET (FP) PO SCH (09:28)
[2023-01-28] MEDS: ISOSORBIDE MONONITRATE 60 MG TAB.SR.24H (FP) PO SCH (09:29)
[2023-01-28] MEDS: ARTIFICIAL TEARS (POLYVINYL ALCOHOL) OPTH DROPS OU SCH ×2 (09:29→21:30)
[2023-01-28] MEDS: metoPROLOL SUCCINATE 25 MG TAB.SR.24H (FP) PO SCH ×2 (09:30→21:29)
[2023-01-28 14:04] LABS: BASO % 0.4 % (0-2.0); EOS % 0.8 % (0-4.5); HEMATOCRIT 36.2 % (32.4-45.2); HEMOGLOBIN 11.7 GM/dL (10.7-15.3); MCH 30.1 pg (25.7-33.7); MCHC 32.3 g/dl (32.0-36.0); MEAN CELL VOLUME 93.3 fl (80-96); MEAN PLT VOLUME 9.8 fl (7.5-11.1); MONO % 8.3 % (3.8-10.2); NEUT % 64.5 % (42.8-82.8); PLATELET COUNT 223 10^3/uL (134-434); RBC 3.88 M/mm3 (3.60-5.2); RDW 15.1 % (11.6-15.6)
[2023-01-28 14:29] LABS: POTASSIUM 3.7 mmol/L (3.5-5.1)
[2023-01-28 14:34] LABS: CREATININE 1.5 mg/dL (0.55-1.3)
[2023-01-28] MEDS: ATORVASTATIN CA 40 MG TABLET (FP) PO SCH (21:29)
[2023-01-28] MEDS: MIRTAZAPINE 15 MG TABLET (FP) PO SCH (21:29)
[2023-01-29] MEDS: QUEtiapine FUMARATE 25 MG TABLET PO PRN ×2 (03:42→21:36)
[2023-01-29 07:58] LABS: BASO % 1.2 % (0-2.0); EOS % 0.9 % (0-4.5); HEMATOCRIT 38.7 % (32.4-45.2); HEMOGLOBIN 12.4 GM/dL (10.7-15.3); LYMPH % 27.9 % (8-40); MCH 30.1 pg (25.7-33.7); MEAN PLT VOLUME 9.9 fl (7.5-11.1); MONO % 6.2 % (3.8-10.2); NEUT % 63.8 % (42.8-82.8); PLATELET COUNT 222 10^3/uL (134-434); RBC 4.11 M/mm3 (3.60-5.2); RDW 14.8 % (11.6-15.6); WHITE BLOOD COUNT 6.8 K/mm3 (4.0-10.0)
[2023-01-29 08:15] LABS: POTASSIUM 3.9 mmol/L (3.5-5.1)
[2023-01-29 08:17] LABS: BLOOD UREA NITROGEN 29.1 mg/dL (7-18); CALCIUM 9.7 mg/dL (8.5-10.1)
[2023-01-29 08:21] LABS: CREATININE 1.2 mg/dL (0.55-1.3)
[2023-01-29] MEDS: metoPROLOL SUCCINATE 25 MG TAB.SR.24H (FP) PO SCH ×2 (10:07→21:36)
[2023-01-29] MEDS: ARTIFICIAL TEARS (POLYVINYL ALCOHOL) OPTH DROPS OU SCH ×2 (10:07→21:41)
[2023-01-29] MEDS: BUDESONIDE/FORMETEROL FUMARATE 160/4.5 mcg INHALER IH SCH ×2 (10:07→21:40)
[2023-01-29] MEDS: PANTOPRAZOLE 20 MG TABLET PO SCH (10:07)
[2023-01-29] MEDS: CHOLECALCIFEROL (VIT D3) 5000 UNITS (125 MCG) CAP PO SCH (10:08)
[2023-01-29] MEDS: ASCORBIC ACID 500 MG TABLET (FP) PO SCH (10:08)
[2023-01-29] MEDS: MULTIVITAMINS (DAILY MVI) TABLET (FP) PO SCH (10:08)
[2023-01-29] MEDS: FUROSEMIDE 40 MG TABLET (FP) PO SCH (10:08)
[2023-01-29] MEDS: ISOSORBIDE MONONITRATE 60 MG TAB.SR.24H (FP) PO SCH (10:08)
[2023-01-29] MEDS: APIXABAN 2.5 MG TABLET PO SCH ×2 (10:08→21:36)
[2023-01-29] MEDS: AMIODARONE HCL 200 MG TABLET PO SCH (10:08)
[2023-01-29] MEDS: MIRTAZAPINE 15 MG TABLET (FP) PO SCH (21:35)
[2023-01-29] MEDS: ATORVASTATIN CA 40 MG TABLET (FP) PO SCH (21:35)
[2023-01-30] MEDS: ARTIFICIAL TEARS (POLYVINYL ALCOHOL) OPTH DROPS OU SCH (09:47)
[2023-01-30] MEDS: metoPROLOL SUCCINATE 25 MG TAB.SR.24H (FP) PO SCH (09:47)
[2023-01-30] MEDS: AMIODARONE HCL 200 MG TABLET PO SCH (09:47)
[2023-01-30] MEDS: FUROSEMIDE 40 MG TABLET (FP) PO SCH (09:47)
[2023-01-30] MEDS: MULTIVITAMINS (DAILY MVI) TABLET (FP) PO SCH (09:47)
[2023-01-30] MEDS: CHOLECALCIFEROL (VIT D3) 5000 UNITS (125 MCG) CAP PO SCH (09:47)
[2023-01-30] MEDS: PANTOPRAZOLE 20 MG TABLET PO SCH (09:47)
[2023-01-30] MEDS: APIXABAN 2.5 MG TABLET PO SCH (09:48)
[2023-01-30] MEDS: ASCORBIC ACID 500 MG TABLET (FP) PO SCH (09:48)
[2023-01-30] MEDS: ISOSORBIDE MONONITRATE 60 MG TAB.SR.24H (FP) PO SCH (09:48)
[2023-01-30] MEDS: BUDESONIDE/FORMETEROL FUMARATE 160/4.5 mcg INHALER IH SCH (09:48)
[2023-01-30 11:58] VITALS: RESP 17
[2023-01-30 13:26] VITALS: BP 100/66; PULSE 64; TEMP 97.9
== END 2023-01-30 15:15 | DRG 291 ==
LOC: JER 00:44 → JERBED 03:15 → J4S 06:55
PROVIDERS: ADMIT Internal Medicine; ATTEND Internal Medicine
DX: I13.0 Hypertensive heart and chronic kidney disease with heart failure and stage 1 through stage 4 chronic kidney disease, or unspecified chronic kidney disease (principal); I50.33 Acute on chronic diastolic (congestive) heart failure; R64 Cachexia; N17.9 Acute kidney failure, unspecified; I24.8 Other forms of acute ischemic heart disease; I48.0 Paroxysmal atrial fibrillation; I10 Essential (primary) hypertension; I50.9 Heart failure, unspecified; I42.8 Other cardiomyopathies; Z79.01 Long term (current) use of anticoagulants; E78.5 Hyperlipidemia, unspecified; I25.10 Atherosclerotic heart disease of native coronary artery without angina pectoris; J44.9 Chronic obstructive pulmonary disease, unspecified; Z99.81 Dependence on supplemental oxygen; D64.9 Anemia, unspecified; K21.9 Gastro-esophageal reflux disease without esophagitis; F03.90 Unspecified dementia, unspecified severity, without behavioral disturbance, psychotic disturbance, mood disturbance, and anxiety; E11.22 Type 2 diabetes mellitus with diabetic chronic kidney disease; N18.9 Chronic kidney disease, unspecified; E87.6 Hypokalemia; Z95.810 Presence of automatic (implantable) cardiac defibrillator; Z68.20 Body mass index [BMI] 20.0-20.9, adult
CPT/HCPCS: 36415; 71045-TC-FY; 80048; 80053; 83735; 83880; 84484; 85025; 85610; 85730; 87635; 93005; 93010; 97116-GP; 97161-GP; 99285-25

== ENCOUNTER 2023-03-03 09:00 | Observation (INO) | payer OTHER ==
[2023-03-03] MEDS ORDERED: ACETAMINOPHEN 1000 MG/100 ML BAG IVPB ONE (09:30)
[2023-03-03] MEDS ORDERED: NITROGLYCERIN 2% OINTMENT - 1GM PACKET TD ONE ×3 (09:30→10:15)
[2023-03-03] MEDS ORDERED: ACETAMINOPHEN INJECTION 100 ML IVPB ONE (10:04)
[2023-03-03 10:36] LABS: BASO % 1.3 % (0-2.0); EOS % 1.9 % (0-4.5); HEMATOCRIT 39.3 % (32.4-45.2); HEMOGLOBIN 12.8 GM/dL (10.7-15.3); LYMPH % 18.1 % (8-40); MCH 30.6 pg (25.7-33.7); MCHC 32.7 g/dl (32.0-36.0); MEAN CELL VOLUME 93.7 fl (80-96); MEAN PLT VOLUME 9.4 fl (7.5-11.1); MONO % 8.1 % (3.8-10.2); NEUT % 70.6 % (42.8-82.8); PLATELET COUNT 221 10^3/uL (134-434); RBC 4.19 M/mm3 (3.60-5.2); RDW 14.4 % (11.6-15.6); WHITE BLOOD COUNT 5.2 K/mm3 (4.0-10.0)
[2023-03-03 10:40] LABS: INR 1.15 (0.83-1.09); PROTHROMBIN TIME (PATIENT) 13.3 SEC (9.7-13.0)
[2023-03-03 11:18] LABS: CHLORIDE 104 mmol/L (98-107); SODIUM 138 mmol/L (136-145)
[2023-03-03 11:20] LABS: CALCIUM 9.4 mg/dL (8.5-10.1); CO2 29 mmol/L (21-32); GLUCOSE,RANDOM 116 mg/dL (74-106)
[2023-03-03 11:21] LABS: ALBUMIN 2.9 g/dl (3.4-5.0); BLOOD UREA NITROGEN 22.5 mg/dL (7-18); LIPASE 110 U/L (73-393); MAGNESIUM 1.9 mg/dL (1.8-2.4)
[2023-03-03 11:23] LABS: CREATININE 1.4 mg/dL (0.55-1.3); SGOT/AST 38 U/L (15-37)
[2023-03-03 11:25] LABS: BILIRUBIN,TOTAL 0.4 mg/dL (0.2-1); TOT PROT 8.1 g/dl (6.4-8.2)
[2023-03-03 11:26] LABS: ALK PHOS 261 U/L (45-117)
[2023-03-03 11:27] LABS: ANION GAP 5 MMOL/L (8-16); SGPT/ALT 42 U/L (13-61)
[2023-03-03 12:37] LABS: POTASSIUM 4.8 mmol/L (3.5-5.1)
[2023-03-03 12:38] LABS: CALCIUM 9.7 mg/dL (8.5-10.1)
[2023-03-03 12:39] LABS: BLOOD UREA NITROGEN 21.1 mg/dL (7-18)
[2023-03-03 12:47] LABS: CREATININE 1.3 mg/dL (0.55-1.3)
[2023-03-03 15:47] VITALS: RESP 18
[2023-03-03] MEDS ORDERED: MAG HYDROX/AL HYDROX/SIMETH 30 ML UNIT-DOSE CUP PO PRN (15:47)
[2023-03-03] MEDS ORDERED: QUEtiapine FUMARATE 25 MG TABLET PO PRN (15:47)
[2023-03-03] MEDS ORDERED: ALBUTEROL SO4 HFA INHALER IH PRN (15:47)
[2023-03-03] MEDS ORDERED: ACETAMINOPHEN 325 MG TABLET (FP) PO PRN (15:47)
[2023-03-03] MEDS ORDERED: LORazepam 2 MG/ML SDV VIAL IVPUSH PRN (18:06)
[2023-03-03] MEDS ORDERED: MIRTAZAPINE 15 MG TABLET (FP) PO SCH (22:00)
[2023-03-03] MEDS ORDERED: PATIENT'S OWN MEDICATION (NON-FORMULARY) (Carboxymethylcellulose Sodium [Refresh Plus] 1 E OU SCH (22:00)
[2023-03-03] MEDS ORDERED: ATORVASTATIN CA 40 MG TABLET (FP) PO SCH (22:00)
[2023-03-03] MEDS: ARTIFICIAL TEARS (POLYVINYL ALCOHOL) OPTH DROPS OU SCH (22:24)
[2023-03-03] MEDS: metoPROLOL SUCCINATE 25 MG TAB.SR.24H (FP) PO SCH (22:24)
[2023-03-03] MEDS: BUDESONIDE/FORMETEROL FUMARATE 80/4.5 mcg INHALER IH SCH (22:24)
[2023-03-03] MEDS: MAG HYDROX/AL HYDROX/SIMETH 30 ML UNIT-DOSE CUP PO SCH (22:24)
[2023-03-03] MEDS: PANTOPRAZOLE 20 MG TABLET PO SCH (22:25)
[2023-03-03] MEDS: APIXABAN 2.5 MG TABLET PO SCH (22:25)
[2023-03-04 01:08] VITALS: BMI 19.6
[2023-03-04 01:33] VITALS: TEMP 97.7
[2023-03-04 04:58] VITALS: BP 155/98; PULSE 64
[2023-03-04] MEDS ORDERED: QUEtiapine FUMARATE 25 MG TABLET PO PRN (05:52)
[2023-03-04] MEDS ORDERED: QUEtiapine FUMARATE 25 MG TABLET PO SCH (06:00)
[2023-03-04] MEDS: MAG HYDROX/AL HYDROX/SIMETH 30 ML UNIT-DOSE CUP PO SCH (06:40)
[2023-03-04 07:48] LABS: BASO % 1.2 % (0-2.0); HEMATOCRIT 37.7 % (32.4-45.2); HEMOGLOBIN 12.4 GM/dL (10.7-15.3); LYMPH % 18.3 % (8-40); MCH 30.7 pg (25.7-33.7); MCHC 32.9 g/dl (32.0-36.0); MEAN CELL VOLUME 93.4 fl (80-96); MEAN PLT VOLUME 9.8 fl (7.5-11.1); MONO % 8.9 % (3.8-10.2); NEUT % 69.6 % (42.8-82.8); PLATELET COUNT 207 10^3/uL (134-434); RBC 4.04 M/mm3 (3.60-5.2); RDW 14.4 % (11.6-15.6); WHITE BLOOD COUNT 5.9 K/mm3 (4.0-10.0)
[2023-03-04 08:01] LABS: POTASSIUM 4.2 mmol/L (3.5-5.1)
[2023-03-04 08:04] LABS: CALCIUM 9.2 mg/dL (8.5-10.1)
[2023-03-04 08:05] LABS: BLOOD UREA NITROGEN 24.3 mg/dL (7-18)
[2023-03-04 08:08] LABS: CREATININE 1.2 mg/dL (0.55-1.3)
[2023-03-04] MEDS: ARTIFICIAL TEARS (POLYVINYL ALCOHOL) OPTH DROPS OU SCH (09:59)
[2023-03-04] MEDS ORDERED: ISOSORBIDE MONONITRATE 60 MG TAB.SR.24H (FP) PO SCH (10:00)
[2023-03-04] MEDS ORDERED: ASCORBIC ACID 500 MG TABLET (FP) PO SCH (10:00)
[2023-03-04] MEDS ORDERED: AMIODARONE HCL 200 MG TABLET PO SCH (10:00)
[2023-03-04] MEDS: PANTOPRAZOLE 20 MG TABLET PO SCH (10:00)
[2023-03-04] MEDS: BUDESONIDE/FORMETEROL FUMARATE 80/4.5 mcg INHALER IH SCH (10:00)
[2023-03-04] MEDS ORDERED: MULTIVITAMINS (DAILY MVI) TABLET (FP) PO SCH (10:00)
[2023-03-04] MEDS ORDERED: FUROSEMIDE 40 MG TABLET (FP) PO SCH (10:00)
[2023-03-04] MEDS: APIXABAN 2.5 MG TABLET PO SCH (10:01)
[2023-03-04] MEDS: metoPROLOL SUCCINATE 25 MG TAB.SR.24H (FP) PO SCH (10:01)
== END 2023-03-04 13:52 ==
LOC: JER 09:00 → JERBED 14:35 → J4W 18:31
PROVIDERS: ADMIT Internal Medicine; ATTEND Internal Medicine
PROC: 3E033NZ Introduction of Analgesics, Hypnotics, Sedatives into Peripheral Vein, Percutaneous Approach (ICD-10-PCS; principal; 2023-03-03)
PROC: 3E033NZ Introduction of Analgesics, Hypnotics, Sedatives into Peripheral Vein, Percutaneous Approach (ICD-10-PCS; 2023-03-03)
DX: N30.00 Acute cystitis without hematuria (principal); I47.1 Supraventricular tachycardia; I42.9 Cardiomyopathy, unspecified; J44.9 Chronic obstructive pulmonary disease, unspecified; I11.9 Hypertensive heart disease without heart failure; Z95.810 Presence of automatic (implantable) cardiac defibrillator; E78.5 Hyperlipidemia, unspecified; Z71.89 Other specified counseling; F03.90 Unspecified dementia, unspecified severity, without behavioral disturbance, psychotic disturbance, mood disturbance, and anxiety; K85.10 Biliary acute pancreatitis without necrosis or infection; I24.9 Acute ischemic heart disease, unspecified; Z88.0 Allergy status to penicillin
CPT/HCPCS: 36415; 71045-TC-FY; 76705-TC; 80048; 80053; 83690; 83735; 84484; 85025; 85610; 93005; 93010; 96374; 96375; 97116-GP; 97161-GP; 99285-25; G0378

== ENCOUNTER 2023-04-04 08:30 | Inpatient (IN) | payer OTHER ==
[2023-04-04 08:45] VITALS: BMI 25.4
[2023-04-04 10:30] LABS: BASO % 1.2 % (0-2.0); EOS % 1.2 % (0-4.5); HEMATOCRIT 36.6 % (32.4-45.2); HEMOGLOBIN 11.9 GM/dL (10.7-15.3); INR 1.13 (0.83-1.09); LYMPH % 15.8 % (8-40); MCH 30.9 pg (25.7-33.7); MCHC 32.4 g/dl (32.0-36.0); MEAN CELL VOLUME 95.2 fl (80-96); MONO % 7.9 % (3.8-10.2); NEUT % 73.9 % (42.8-82.8); PLATELET COUNT 196 10^3/uL (134-434); PROTHROMBIN TIME (PATIENT) 13.1 SEC (9.7-13.0); RBC 3.85 M/mm3 (3.60-5.2); RDW 14.8 % (11.6-15.6); WHITE BLOOD COUNT 5.3 K/mm3 (4.0-10.0)
[2023-04-04 10:32] LABS: POTASSIUM 4.2 mmol/L (3.5-5.1)
[2023-04-04] MEDS ORDERED: ACETAMINOPHEN 1000 MG/100 ML BAG IVPB ONE (10:32)
[2023-04-04] MEDS ORDERED: FAMOTIDINE 20 MG/50 ML IVPB 20 MG/50 ML MG IVPB ONE ×2 (10:32→10:40)
[2023-04-04 10:33] LABS: ACTIVATED PTT 27.4 SECONDS (25.2-36.5)
[2023-04-04 10:35] LABS: BLOOD UREA NITROGEN 16.1 mg/dL (7-18)
[2023-04-04 10:38] LABS: CREATININE 1.2 mg/dL (0.55-1.3)
[2023-04-04 10:40] LABS: BILIRUBIN,TOTAL 0.4 mg/dL (0.2-1); TOT PROT 7.3 g/dl (6.4-8.2)
[2023-04-04] MEDS ORDERED: ACETAMINOPHEN INJECTION 100 ML IVPB ONE (10:40)
[2023-04-04] MEDS ORDERED: ALBUTEROL SO4 2.5/IPRATROPIUM 0.5 INH SOL 3 ML VIAL.NEB. NEB PRN (11:27)
[2023-04-04] MEDS ORDERED: ACETAMINOPHEN 325 MG TABLET (FP) PO PRN (11:36)
[2023-04-04] MEDS ORDERED: PANTOPRAZOLE 40 MG TABLET PO ONE (13:07)
[2023-04-04] MEDS ORDERED: ASCORBIC ACID 500 MG TABLET (FP) ONE (13:07)
[2023-04-04] MEDS ORDERED: APIXABAN 5 MG TABLET ONE (13:07)
[2023-04-04] MEDS ORDERED: ISOSORBIDE MONONITRATE 60 MG TAB.SR.24H (FP) PO ONE (13:07)
[2023-04-04] MEDS ORDERED: metoPROLOL SUCCINATE 25 MG TAB.SR.24H (FP) PO ONE (13:07)
[2023-04-04] MEDS ORDERED: AMIODARONE HCL 200 MG TABLET ONE (13:10)
[2023-04-04] MEDS: AMIODARONE HCL 200 MG TABLET PO SCH (13:24)
[2023-04-04] MEDS: ASCORBIC ACID 500 MG TABLET (FP) PO SCH (13:24)
[2023-04-04] MEDS: ISOSORBIDE MONONITRATE 60 MG TAB.SR.24H (FP) PO SCH (13:24)
[2023-04-04] MEDS: PANTOPRAZOLE 40 MG TABLET PO SCH (13:24)
[2023-04-04] MEDS: metoPROLOL SUCCINATE 25 MG TAB.SR.24H (FP) PO SCH ×2 (13:24→21:36)
[2023-04-04] MEDS: APIXABAN 2.5 MG TABLET PO SCH ×2 (13:24→21:35)
[2023-04-04] MEDS ORDERED: LORazepam 2 MG/ML SDV VIAL IVPUSH PRN (16:24)
[2023-04-04] MEDS ORDERED: QUEtiapine FUMARATE 25 MG TABLET ONE (16:32)
[2023-04-04] MEDS: ARTIFICIAL TEARS (POLYVINYL ALCOHOL) OPTH DROPS OU SCH ×2 (16:39→21:59)
[2023-04-04] MEDS: QUEtiapine FUMARATE 25 MG TABLET PO SCH ×2 (16:40→21:35)
[2023-04-04] MEDS: CHOLECALCIFEROL (VIT D3) 5000 UNITS (125 MCG) CAP PO SCH (16:40)
[2023-04-04] MEDS: MIRTAZAPINE 15 MG TABLET (FP) PO SCH (21:35)
[2023-04-04] MEDS: ATORVASTATIN CA 40 MG TABLET (FP) PO SCH (21:36)
[2023-04-05] MEDS: ISOSORBIDE MONONITRATE 60 MG TAB.SR.24H (FP) PO SCH (10:39)
[2023-04-05] MEDS: FUROSEMIDE 40 MG TABLET (FP) PO SCH (10:39)
[2023-04-05] MEDS: AMIODARONE HCL 200 MG TABLET PO SCH (10:39)
[2023-04-05] MEDS: ASCORBIC ACID 500 MG TABLET (FP) PO SCH (10:39)
[2023-04-05] MEDS: PANTOPRAZOLE 40 MG TABLET PO SCH (10:40)
[2023-04-05] MEDS: QUEtiapine FUMARATE 25 MG TABLET PO SCH ×2 (10:40→21:07)
[2023-04-05] MEDS: APIXABAN 2.5 MG TABLET PO SCH ×2 (10:40→21:07)
[2023-04-05] MEDS: metoPROLOL SUCCINATE 25 MG TAB.SR.24H (FP) PO SCH ×2 (10:40→21:07)
[2023-04-05] MEDS: CHOLECALCIFEROL (VIT D3) 5000 UNITS (125 MCG) CAP PO SCH (10:41)
[2023-04-05] MEDS: ARTIFICIAL TEARS (POLYVINYL ALCOHOL) OPTH DROPS OU SCH ×2 (15:59→21:07)
[2023-04-05] MEDS: ATORVASTATIN CA 40 MG TABLET (FP) PO SCH (21:07)
[2023-04-05] MEDS: MIRTAZAPINE 15 MG TABLET (FP) PO SCH (21:07)
[2023-04-06 10:22] VITALS: RESP 17
[2023-04-06] MEDS: ISOSORBIDE MONONITRATE 60 MG TAB.SR.24H (FP) PO SCH (10:22)
[2023-04-06] MEDS: QUEtiapine FUMARATE 25 MG TABLET PO SCH (10:23)
[2023-04-06] MEDS: AMIODARONE HCL 200 MG TABLET PO SCH (10:23)
[2023-04-06] MEDS: ASCORBIC ACID 500 MG TABLET (FP) PO SCH (10:23)
[2023-04-06] MEDS: APIXABAN 2.5 MG TABLET PO SCH (10:23)
[2023-04-06] MEDS: PANTOPRAZOLE 40 MG TABLET PO SCH (10:23)
[2023-04-06] MEDS: ARTIFICIAL TEARS (POLYVINYL ALCOHOL) OPTH DROPS OU SCH (10:23)
[2023-04-06] MEDS: FUROSEMIDE 40 MG TABLET (FP) PO SCH (10:23)
[2023-04-06] MEDS: CHOLECALCIFEROL (VIT D3) 5000 UNITS (125 MCG) CAP PO SCH (10:24)
[2023-04-06] MEDS: metoPROLOL SUCCINATE 25 MG TAB.SR.24H (FP) PO SCH (10:24)
[2023-04-06 14:17] VITALS: BP 122/93; PULSE 102; TEMP 97.7
== END 2023-04-06 16:11 | disposition home or self-care (01) | DRG 313 ==
LOC: JER 08:30 → JERBED 11:11 → OBSVTOIN 11:29 → J4S 17:54
PROVIDERS: ADMIT Internal Medicine; ATTEND Internal Medicine
DX: R07.89 Other chest pain (principal); I50.32 Chronic diastolic (congestive) heart failure; J96.11 Chronic respiratory failure with hypoxia; I42.9 Cardiomyopathy, unspecified; I25.10 Atherosclerotic heart disease of native coronary artery without angina pectoris; E11.9 Type 2 diabetes mellitus without complications; J44.9 Chronic obstructive pulmonary disease, unspecified; I11.0 Hypertensive heart disease with heart failure; F03.90 Unspecified dementia, unspecified severity, without behavioral disturbance, psychotic disturbance, mood disturbance, and anxiety; I48.91 Unspecified atrial fibrillation; K21.9 Gastro-esophageal reflux disease without esophagitis; E78.5 Hyperlipidemia, unspecified
CPT/HCPCS: 36415; 71045-TC-FY; 80053; 83735; 84484; 85025; 85610; 85730; 87635; 93005; 93010; 97116-GP; 97161-GP; 99285-25; G0378

== ENCOUNTER 2023-04-11 00:03 | Emergency (ER) | payer OTHER ==
[2023-04-11 00:29] VITALS: BMI 17.9
[2023-04-11] MEDS ORDERED: SODIUM CHLORIDE 0.9% 500 ML INFUS.BAG IV ONE (00:42)
[2023-04-11 01:18] LABS: BASO % 1.9 % (0-2.0); EOS % 1.9 % (0-4.5); HEMATOCRIT 36.5 % (32.4-45.2); HEMOGLOBIN 12.2 GM/dL (10.7-15.3); LYMPH % 25.8 % (8-40); MCH 30.9 pg (25.7-33.7); MCHC 33.3 g/dl (32.0-36.0); MEAN CELL VOLUME 92.6 fl (80-96); MONO % 6.9 % (3.8-10.2); NEUT % 63.5 % (42.8-82.8); PLATELET COUNT 182 10^3/uL (134-434); RBC 3.94 M/mm3 (3.60-5.2); RDW 15.2 % (11.6-15.6); WHITE BLOOD COUNT 5.4 K/mm3 (4.0-10.0)
[2023-04-11 01:36] VITALS: TEMP 97.4
[2023-04-11 01:46] LABS: POTASSIUM 4.2 mmol/L (3.5-5.1)
[2023-04-11 01:48] LABS: CALCIUM 8.9 mg/dL (8.5-10.1)
[2023-04-11 01:49] LABS: ALBUMIN 2.9 g/dl (3.4-5.0); BLOOD UREA NITROGEN 33.1 mg/dL (7-18)
[2023-04-11 01:52] LABS: CREATININE 1.4 mg/dL (0.55-1.3)
[2023-04-11 01:53] LABS: MAGNESIUM 1.9 mg/dL (1.8-2.4); TOT PROT 7.2 g/dl (6.4-8.2)
[2023-04-11 01:54] LABS: BILIRUBIN,TOTAL 0.4 mg/dL (0.2-1)
[2023-04-11] MEDS ORDERED: morphine CARPU-JECT 2 MG/1 ML DISP.SYRIN IVPUSH ONE (02:45)
[2023-04-11] MEDS ORDERED: AZITHROMYCIN IVPB 500 MG in DEXTROSE 5%-WATER - 250 ML IVPB ONE (05:30)
[2023-04-11 09:11] VITALS: BP 125/61; PULSE 71; RESP 17
== END 2023-04-11 09:12 | disposition home or self-care (01) ==
LOC: JER 00:03
DX: R06.02 Shortness of breath (principal); R07.9 Chest pain, unspecified; R10.13 Epigastric pain; J44.9 Chronic obstructive pulmonary disease, unspecified; Z20.822 Contact with and (suspected) exposure to COVID-19
CPT/HCPCS: 36415; 71045-TC-FY; 74177-TC; 80053; 83735; 84484; 85025; 87635; 93005; 93010; 99285-25; Q9967

== ENCOUNTER 2023-04-20 17:53 | Observation (INO) | payer OTHER ==
[2023-04-20] MEDS ORDERED: ACETAMINOPHEN 1000 MG/100 ML BAG IVPB ONE (19:46)
[2023-04-20] MEDS ORDERED: ACETAMINOPHEN INJECTION 100 ML IVPB ONE (20:05)
[2023-04-20 20:49] LABS: BASO % 0.9 % (0-2.0); EOS % 0.5 % (0-4.5); HEMATOCRIT 34.5 % (32.4-45.2); HEMOGLOBIN 11.7 GM/dL (10.7-15.3); MCH 31.3 pg (25.7-33.7); MCHC 33.8 g/dl (32.0-36.0); MEAN CELL VOLUME 92.7 fl (80-96); MEAN PLT VOLUME 8.6 fl (7.5-11.1); MONO % 7.8 % (3.8-10.2); NEUT % 76.8 % (42.8-82.8); PLATELET COUNT 190 10^3/uL (134-434); RBC 3.73 M/mm3 (3.60-5.2); WHITE BLOOD COUNT 7.1 K/mm3 (4.0-10.0)
[2023-04-20 20:55] LABS: POTASSIUM 3.9 mmol/L (3.5-5.1)
[2023-04-20 20:57] LABS: ALBUMIN 2.7 g/dl (3.4-5.0); BLOOD UREA NITROGEN 21.6 mg/dL (7-18); CALCIUM 8.9 mg/dL (8.5-10.1)
[2023-04-20 21:01] LABS: CREATININE 1.6 mg/dL (0.55-1.3); INR 1.25 (0.83-1.09); PROTHROMBIN TIME (PATIENT) 14.5 SEC (9.7-13.0)
[2023-04-20 21:02] LABS: BILIRUBIN,TOTAL 0.5 mg/dL (0.2-1); TOT PROT 6.6 g/dl (6.4-8.2)
[2023-04-20 21:03] LABS: ACTIVATED PTT 25.7 SECONDS (25.2-36.5)
[2023-04-21 02:33] VITALS: BMI 20.2
[2023-04-21 06:45] LABS: EPI CELLS 8 /uL (0-25.1); HYALINE CASTS 0 /uL (0-3.1); URINE APPEARANCE CLEAR; URINE BACTERIA 45 /uL (0-1359); URINE BILIRUBIN NEGATIVE (NEGATIVE); URINE COLOR YELLOW; URINE GLUCOSE (UA) NEGATIVE (NEGATIVE); URINE KETONE NEGATIVE (NEGATIVE); URINE LEUK ESTERASE NEGATIVE (NEGATIVE); URINE NITRITE NEGATIVE (NEGATIVE); URINE PROTEIN 1+ (NEGATIVE); URINE RBC 11 /uL (0-23.9); URINE UROBILINOGEN 0.2 mg/dL (0.2-1.0); URINE WBC 5 /uL (0-25.8)
[2023-04-21] MEDS ORDERED: ALBUTEROL SO4 HFA INHALER IH PRN (07:45)
[2023-04-21] MEDS ORDERED: BUDESONIDE/FORMETEROL FUMARATE 80/4.5 mcg INHALER IH SCH (10:00)
[2023-04-21] MEDS ORDERED: APIXABAN 2.5 MG TABLET PO SCH (10:00)
[2023-04-21] MEDS ORDERED: ISOSORBIDE MONONITRATE 60 MG TAB.SR.24H (FP) PO SCH (10:00)
[2023-04-21] MEDS ORDERED: RANOLAZINE E.R. 500 MG TABLET (FP) PO SCH (10:00)
[2023-04-21] MEDS ORDERED: metoPROLOL SUCCINATE 25 MG TAB.SR.24H (FP) PO SCH (10:00)
[2023-04-21] MEDS ORDERED: ARTIFICIAL TEARS (POLYVINYL ALCOHOL) OPTH DROPS OU SCH (10:00)
[2023-04-21] MEDS ORDERED: AMIODARONE HCL 200 MG TABLET PO SCH (10:00)
[2023-04-21 10:23] LABS: BASO % 1.2 % (0-2.0); EOS % 1.2 % (0-4.5); HEMATOCRIT 35.9 % (32.4-45.2); LYMPH % 21.3 % (8-40); MCHC 33.5 g/dl (32.0-36.0); MEAN CELL VOLUME 92.5 fl (80-96); MEAN PLT VOLUME 9.3 fl (7.5-11.1); NEUT % 68.3 % (42.8-82.8); PLATELET COUNT 208 10^3/uL (134-434); RBC 3.88 M/mm3 (3.60-5.2); RDW 15.1 % (11.6-15.6); WHITE BLOOD COUNT 6.4 K/mm3 (4.0-10.0)
[2023-04-21 10:33] LABS: POTASSIUM 3.9 mmol/L (3.5-5.1)
[2023-04-21 10:37] LABS: CALCIUM 8.7 mg/dL (8.5-10.1)
[2023-04-21 10:38] LABS: ALBUMIN 2.6 g/dl (3.4-5.0); BLOOD UREA NITROGEN 16.9 mg/dL (7-18)
[2023-04-21 10:41] LABS: CREATININE 1.2 mg/dL (0.55-1.3)
[2023-04-21 10:43] LABS: BILIRUBIN,TOTAL 0.6 mg/dL (0.2-1); TOT PROT 6.5 g/dl (6.4-8.2)
[2023-04-21] MEDS ORDERED: FUROSEMIDE 40 MG TABLET (FP) PO SCH (12:45)
[2023-04-21 15:57] VITALS: RESP 19
[2023-04-21 19:20] VITALS: BP 140/97; PULSE 83; TEMP 97.9
[2023-04-21] MEDS ORDERED: PATIENT'S OWN MEDICATION (NON-FORMULARY) (Carboxymethylcellulose Sodium [Refresh Plus] 1 E OU SCH (22:00)
[2023-04-21] MEDS ORDERED: MIRTAZAPINE 15 MG TABLET (FP) PO SCH (22:00)
[2023-04-21] MEDS ORDERED: SENNOSIDES/DOCUSATE COMBO (SENNA PLUS) TABLET (UD) PO SCH (22:00)
[2023-04-21] MEDS ORDERED: URSODIOL 300 MG CAPSULE PO SCH (22:00)
[2023-04-21] MEDS ORDERED: ATORVASTATIN CA 40 MG TABLET (FP) PO SCH (22:00)
[2023-04-22] MEDS ORDERED: MULTIVITAMINS (DAILY MVI) TABLET (FP) PO SCH (10:00)
== END 2023-04-21 20:56 ==
LOC: JER 17:53 → JERBED 21:46 → J4W 04-21 02:24
PROVIDERS: ADMIT Internal Medicine; ATTEND Internal Medicine
PROC: 3E033NZ Introduction of Analgesics, Hypnotics, Sedatives into Peripheral Vein, Percutaneous Approach (ICD-10-PCS; principal; 2023-04-20)
DX: I11.0 Hypertensive heart disease with heart failure (principal); F03.90 Unspecified dementia, unspecified severity, without behavioral disturbance, psychotic disturbance, mood disturbance, and anxiety; I20.9 Angina pectoris, unspecified; E11.9 Type 2 diabetes mellitus without complications; W18.39XA Other fall on same level, initial encounter; Y93.89 Activity, other specified; Y92.099 Unspecified place in other non-institutional residence as the place of occurrence of the external cause; J44.9 Chronic obstructive pulmonary disease, unspecified; I48.91 Unspecified atrial fibrillation; Z79.01 Long term (current) use of anticoagulants; E78.5 Hyperlipidemia, unspecified; N17.9 Acute kidney failure, unspecified; D64.9 Anemia, unspecified; F41.8 Other specified anxiety disorders; Z99.81 Dependence on supplemental oxygen; K21.9 Gastro-esophageal reflux disease without esophagitis; N28.9 Disorder of kidney and ureter, unspecified; R29.6 Repeated falls; R77.8 Other specified abnormalities of plasma proteins; I42.9 Cardiomyopathy, unspecified; Z88.0 Allergy status to penicillin; F32.A Depression, unspecified
CPT/HCPCS: 0241U-QW; 36415; 70450-TC; 71045-TC-FY; 72125-TC; 72170-TC-FY; 80053; 81003; 82962; 83735; 84484; 85025; 85610; 85730; 93005; 93010; 96374; 99285-25; G0378

== ENCOUNTER 2023-04-24 08:57 | Inpatient (IN) | payer OTHER ==
[2023-04-24 11:09] LABS: INR 1.27 (0.83-1.09); PROTHROMBIN TIME (PATIENT) 14.7 SEC (9.7-13.0)
[2023-04-24 11:12] LABS: ACTIVATED PTT 25.1 SECONDS (25.2-36.5); BASO % 1.1 % (0-2.0); EOS % 1.1 % (0-4.5); HEMATOCRIT 36.4 % (32.4-45.2); HEMOGLOBIN 11.7 GM/dL (10.7-15.3); LYMPH % 18.8 % (8-40); MCH 30.4 pg (25.7-33.7); MCHC 32.1 g/dl (32.0-36.0); MEAN CELL VOLUME 94.6 fl (80-96); MEAN PLT VOLUME 9.3 fl (7.5-11.1); MONO % 5.6 % (3.8-10.2); NEUT % 73.4 % (42.8-82.8); PLATELET COUNT 216 10^3/uL (134-434); RBC 3.85 M/mm3 (3.60-5.2); RDW 14.8 % (11.6-15.6); WHITE BLOOD COUNT 5.1 K/mm3 (4.0-10.0)
[2023-04-24 11:19] LABS: CALCIUM 8.6 mg/dL (8.5-10.1)
[2023-04-24 11:20] LABS: BLOOD UREA NITROGEN 20.2 mg/dL (7-18); MAGNESIUM 1.9 mg/dL (1.8-2.4)
[2023-04-24 11:23] LABS: CREATININE 1.8 mg/dL (0.55-1.3)
[2023-04-24 11:24] LABS: EPI CELLS >36 /uL (0-25.1); HYALINE CASTS 0 /uL (0-3.1); URINE APPEARANCE CLEAR; URINE BACTERIA 337 /uL (0-1359); URINE BILIRUBIN NEGATIVE (NEGATIVE); URINE COLOR YELLOW; URINE GLUCOSE (UA) NEGATIVE (NEGATIVE); URINE KETONE NEGATIVE (NEGATIVE); URINE LEUK ESTERASE TRACE (NEGATIVE); URINE NITRITE NEGATIVE (NEGATIVE); URINE PROTEIN 2+ (NEGATIVE); URINE WBC 13 /uL (0-25.8)
[2023-04-24 11:25] LABS: BILIRUBIN,TOTAL 0.7 mg/dL (0.2-1); TOT PROT 6.8 g/dl (6.4-8.2)
[2023-04-24 12:00] LABS: URINE RBC 71 /uL (0-23.9)
[2023-04-24] MEDS ORDERED: ALBUTEROL SO4 HFA INHALER IH PRN (14:55)
[2023-04-24 17:30] VITALS: BMI 19.3
[2023-04-24] MEDS ORDERED: ALPRAZolam 0.25 MG TABLET PO PRN (20:01)
[2023-04-24] MEDS ORDERED: LORazepam 2 MG/ML SDV VIAL IM ONE (20:32)
[2023-04-24] MEDS ORDERED: PATIENT'S OWN MEDICATION (NON-FORMULARY) (Salmeterol/Fluticasone [Advair 250mcg/50mcg -] 1 IH SCH (22:00)
[2023-04-24] MEDS: APIXABAN 2.5 MG TABLET PO SCH (22:32)
[2023-04-24] MEDS: BUDESONIDE/FORMETEROL FUMARATE 80/4.5 mcg INHALER IH SCH (22:33)
[2023-04-24] MEDS: MIRTAZAPINE 15 MG TABLET (FP) PO SCH (22:33)
[2023-04-24] MEDS: PANTOPRAZOLE 20 MG TABLET PO SCH (22:33)
[2023-04-24] MEDS: ATORVASTATIN CA 40 MG TABLET (FP) PO SCH (22:33)
[2023-04-24] MEDS: metoPROLOL SUCCINATE 25 MG TAB.SR.24H (FP) PO SCH (22:34)
[2023-04-25] MEDS: APIXABAN 2.5 MG TABLET PO SCH ×3 (08:16→21:38)
[2023-04-25] MEDS: metoPROLOL SUCCINATE 25 MG TAB.SR.24H (FP) PO SCH ×3 (08:17→21:39)
[2023-04-25] MEDS: PANTOPRAZOLE 20 MG TABLET PO SCH ×3 (08:17→21:38)
[2023-04-25 08:22] LABS: POTASSIUM 3.7 mmol/L (3.5-5.1)
[2023-04-25 08:28] LABS: BLOOD UREA NITROGEN 18.6 mg/dL (7-18); CALCIUM 9.2 mg/dL (8.5-10.1)
[2023-04-25 08:32] LABS: CREATININE 1.2 mg/dL (0.55-1.3)
[2023-04-25] MEDS: ISOSORBIDE MONONITRATE 60 MG TAB.SR.24H (FP) PO SCH (12:49)
[2023-04-25] MEDS: FUROSEMIDE 40 MG TABLET (FP) PO SCH (12:49)
[2023-04-25] MEDS: AMIODARONE HCL 200 MG TABLET PO SCH (12:49)
[2023-04-25] MEDS: BUDESONIDE/FORMETEROL FUMARATE 80/4.5 mcg INHALER IH SCH ×2 (12:50→21:51)
[2023-04-25] MEDS: MIRTAZAPINE 15 MG TABLET (FP) PO SCH (21:38)
[2023-04-25] MEDS: ATORVASTATIN CA 40 MG TABLET (FP) PO SCH (21:38)
[2023-04-25] MEDS ORDERED: BACITRACIN ZINC 15 GM TUBE TOPICAL OINTMENT TP PRN (22:22)
[2023-04-25] MEDS ORDERED: [UNRECOGNIZED DRUG - OTHER] NS PRN (22:22)
[2023-04-25] MEDS ORDERED: SODIUM CHLORIDE NS PRN (22:22)
[2023-04-25] MEDS ORDERED: SELENIUM SULFIDE 2.5% LOTION 4 OZ. TP PRN (22:22)
[2023-04-25] MEDS ORDERED: NYSTATIN 100000 UNIT/GM TOPICAL OINTMENT 15 GM TUBE TP SCH (22:30)
[2023-04-25] MEDS ORDERED: BACLOFEN 10 MG TABLET (FP) PO SCH (22:30)
[2023-04-25] MEDS ORDERED: guaiFENesin/D-METHORPHAN HB 10 ML UNIT-DOSE CUPS PO SCH (22:30)
[2023-04-25] MEDS ORDERED: [UNRECOGNIZED DRUG - OTHER] PO SCH (22:30)
[2023-04-25] MEDS ORDERED: MAG HYDROX PO SCH (22:30)
[2023-04-25] MEDS ORDERED: PATIENT'S OWN MEDICATION (NON-FORMULARY) (Acetaminophen [Acetaminophen] 325 MG Capsule) PO SCH (22:30)
[2023-04-25] MEDS ORDERED: ALUMINUM HYD PO SCH (22:30)
[2023-04-25] MEDS ORDERED: SIMETHICONE 125 MG PO SCH (22:30)
[2023-04-25] MEDS ORDERED: ARTIFICIAL TEARS (POLYVINYL ALCOHOL) OPTH DROPS OU SCH (22:30)
[2023-04-25] MEDS ORDERED: PATIENT'S OWN MEDICATION (NON-FORMULARY) (Calcium Citrate [Calcium Citrate] 200 MG Tablet) PO SCH (22:30)
[2023-04-25] MEDS ORDERED: BISACODYL 10 MG SUPP.RECT RC SCH (22:30)
[2023-04-25] MEDS ORDERED: SENNOSIDES 8.6MG TABLET (FP) PO SCH ×2 (22:30→23:45)
[2023-04-25] MEDS ORDERED: IBUPROFEN 200 MG PO SCH (22:30)
[2023-04-25] MEDS ORDERED: DISPOSABLE RC SCH (22:30)
[2023-04-25] MEDS ORDERED: PATIENT'S OWN MEDICATION (NON-FORMULARY) (Carboxymethylcellulose Sodium [Refresh Plus] 1 E OU SCH (22:30)
[2023-04-25] MEDS ORDERED: GABAPENTIN 300 MG CAPSULE PO SCH (22:30)
[2023-04-25] MEDS ORDERED: diphenhydrAMINE HCL 25 MG CAPSULE (FP) PO SCH (22:30)
[2023-04-25] MEDS ORDERED: SIMETH PO SCH (22:30)
[2023-04-25] MEDS ORDERED: [UNRECOGNIZED DRUG - OTHER] RC SCH (22:30)
[2023-04-25] MEDS ORDERED: carBAMazepine XR 200 MG TAB.ER.12H PO SCH (22:44)
[2023-04-26] MEDS ORDERED: levOCARNitine 500 MG/5 ML SOLUTION PO SCH
[2023-04-26] MEDS ORDERED: DOCUSATE SODIUM 100 MG CAPSULE (FP) PO SCH (06:00)
[2023-04-26 08:15] LABS: POTASSIUM 3.5 mmol/L (3.5-5.1)
[2023-04-26 08:24] LABS: BASO % 0.7 % (0-2.0); EOS % 1.8 % (0-4.5); HEMATOCRIT 34.9 % (32.4-45.2); HEMOGLOBIN 11.5 GM/dL (10.7-15.3); LYMPH % 13.5 % (8-40); MCH 31.2 pg (25.7-33.7); MCHC 32.8 g/dl (32.0-36.0); MEAN CELL VOLUME 94.9 fl (80-96); MEAN PLT VOLUME 9.2 fl (7.5-11.1); MONO % 6.5 % (3.8-10.2); NEUT % 77.5 % (42.8-82.8); PLATELET COUNT 193 10^3/uL (134-434); RBC 3.68 M/mm3 (3.60-5.2); WHITE BLOOD COUNT 8.4 K/mm3 (4.0-10.0)
[2023-04-26 08:25] LABS: BLOOD UREA NITROGEN 20.6 mg/dL (7-18); CALCIUM 8.8 mg/dL (8.5-10.1)
[2023-04-26 08:29] LABS: CREATININE 1.3 mg/dL (0.55-1.3)
[2023-04-26] MEDS: AMIODARONE HCL 200 MG TABLET PO SCH (09:56)
[2023-04-26] MEDS: PANTOPRAZOLE 20 MG TABLET PO SCH ×2 (09:56→21:19)
[2023-04-26] MEDS: ISOSORBIDE MONONITRATE 60 MG TAB.SR.24H (FP) PO SCH (09:56)
[2023-04-26] MEDS: FUROSEMIDE 40 MG TABLET (FP) PO SCH (09:56)
[2023-04-26] MEDS: APIXABAN 2.5 MG TABLET PO SCH ×2 (09:57→21:18)
[2023-04-26] MEDS: BUDESONIDE/FORMETEROL FUMARATE 80/4.5 mcg INHALER IH SCH ×2 (09:58→21:19)
[2023-04-26] MEDS ORDERED: CHLORHEXIDINE GLUCONATE 0.12% 15ML CUP MM SCH (10:00)
[2023-04-26] MEDS ORDERED: MULTIVITAMINS (DAILY MVI) TABLET (FP) PO SCH (10:00)
[2023-04-26] MEDS ORDERED: FUROSEMIDE 40 MG TABLET (FP) PO SCH (10:00)
[2023-04-26] MEDS ORDERED: ZINC OXIDE 20% TP SCH (10:00)
[2023-04-26] MEDS ORDERED: MULTIVITAMINS THER W-MINERALS COMBO TABLET (FP) PO SCH (10:00)
[2023-04-26] MEDS: QUEtiapine FUMARATE 25 MG TABLET PO SCH (17:57)
[2023-04-26] MEDS ORDERED: QUEtiapine FUMARATE 25 MG TABLET PO ONE (19:57)
[2023-04-26] MEDS ORDERED: ALPRAZolam 1 MG TABLET PO ONE (20:14)
[2023-04-26] MEDS ORDERED: ALPRAZolam 0.25 MG TABLET PO ONE (20:30)
[2023-04-26] MEDS: ATORVASTATIN CA 40 MG TABLET (FP) PO SCH (21:18)
[2023-04-26] MEDS: MIRTAZAPINE 15 MG TABLET (FP) PO SCH (21:19)
[2023-04-26] MEDS ORDERED: FERROUS SULFATE 220 MG/5 ML ELIXIR PO SCH (22:00)
[2023-04-27 08:03] LABS: POTASSIUM 4.2 mmol/L (3.5-5.1)
[2023-04-27 08:10] LABS: BASO % 0.8 % (0-2.0); EOS % 2.7 % (0-4.5); HEMATOCRIT 35.3 % (32.4-45.2); HEMOGLOBIN 11.4 GM/dL (10.7-15.3); LYMPH % 22.3 % (8-40); MCH 30.4 pg (25.7-33.7); MCHC 32.2 g/dl (32.0-36.0); MEAN CELL VOLUME 94.4 fl (80-96); MEAN PLT VOLUME 9.9 fl (7.5-11.1); MONO % 7.3 % (3.8-10.2); NEUT % 66.9 % (42.8-82.8); PLATELET COUNT 200 10^3/uL (134-434); RBC 3.74 M/mm3 (3.60-5.2); RDW 15.2 % (11.6-15.6); WHITE BLOOD COUNT 6.4 K/mm3 (4.0-10.0)
[2023-04-27 08:15] LABS: BLOOD UREA NITROGEN 21.2 mg/dL (7-18)
[2023-04-27 08:16] LABS: CALCIUM 9.7 mg/dL (8.5-10.1)
[2023-04-27 08:18] LABS: CREATININE 1.5 mg/dL (0.55-1.3)
[2023-04-27] MEDS: ACETAMINOPHEN 325 MG TABLET (FP) PO PRN ×2 (08:35→17:17)
[2023-04-27] MEDS: AMIODARONE HCL 200 MG TABLET PO SCH (09:46)
[2023-04-27] MEDS: PANTOPRAZOLE 20 MG TABLET PO SCH ×2 (09:47→21:17)
[2023-04-27] MEDS: ISOSORBIDE MONONITRATE 60 MG TAB.SR.24H (FP) PO SCH (09:47)
[2023-04-27] MEDS: FUROSEMIDE 40 MG TABLET (FP) PO SCH (09:48)
[2023-04-27] MEDS: APIXABAN 2.5 MG TABLET PO SCH ×2 (09:48→21:18)
[2023-04-27] MEDS: QUEtiapine FUMARATE 25 MG TABLET PO SCH (09:49)
[2023-04-27] MEDS: BUDESONIDE/FORMETEROL FUMARATE 80/4.5 mcg INHALER IH SCH ×2 (09:51→22:18)
[2023-04-27] MEDS: URSODIOL 300 MG CAPSULE PO SCH ×3 (13:17→21:17)
[2023-04-27] MEDS: ATORVASTATIN CA 40 MG TABLET (FP) PO SCH (21:17)
[2023-04-27] MEDS: MIRTAZAPINE 15 MG TABLET (FP) PO SCH (21:18)
[2023-04-28] MEDS ORDERED: ALBUTEROL SO4 HFA INHALER IH PRN (07:32)
[2023-04-28] MEDS ORDERED: ACETAMINOPHEN 325 MG TABLET (FP) PO PRN (07:32)
[2023-04-28] MEDS: FUROSEMIDE 40 MG TABLET (FP) PO SCH (11:40)
[2023-04-28] MEDS: AMIODARONE HCL 200 MG TABLET PO SCH (11:40)
[2023-04-28] MEDS: APIXABAN 2.5 MG TABLET PO SCH ×2 (11:40→22:09)
[2023-04-28] MEDS: URSODIOL 300 MG CAPSULE PO SCH ×2 (11:40→22:11)
[2023-04-28] MEDS: QUEtiapine FUMARATE 25 MG TABLET PO SCH (11:41)
[2023-04-28] MEDS: BUDESONIDE/FORMETEROL FUMARATE 80/4.5 mcg INHALER IH SCH ×2 (11:42→22:16)
[2023-04-28] MEDS: ISOSORBIDE MONONITRATE 60 MG TAB.SR.24H (FP) PO SCH (11:42)
[2023-04-28] MEDS: PANTOPRAZOLE 20 MG TABLET PO SCH ×2 (11:42→22:10)
[2023-04-28] MEDS ORDERED: HALOPERIDOL LACTATE 5 MG/ML IM PRN (16:36)
[2023-04-28] MEDS: ATORVASTATIN CA 40 MG TABLET (FP) PO SCH (22:10)
[2023-04-28] MEDS: MIRTAZAPINE 15 MG TABLET (FP) PO SCH (22:11)
[2023-04-29 02:28] VITALS: RESP 18
[2023-04-29] MEDS: QUEtiapine FUMARATE 25 MG TABLET PO SCH (09:43)
[2023-04-29] MEDS: URSODIOL 300 MG CAPSULE PO SCH ×2 (09:43→22:43)
[2023-04-29] MEDS: PANTOPRAZOLE 20 MG TABLET PO SCH ×2 (09:43→22:42)
[2023-04-29] MEDS: APIXABAN 2.5 MG TABLET PO SCH ×2 (09:44→22:41)
[2023-04-29] MEDS: AMIODARONE HCL 200 MG TABLET PO SCH (09:44)
[2023-04-29] MEDS: FUROSEMIDE 40 MG TABLET (FP) PO SCH (09:44)
[2023-04-29] MEDS: ISOSORBIDE MONONITRATE 60 MG TAB.SR.24H (FP) PO SCH (09:44)
[2023-04-29] MEDS: BUDESONIDE/FORMETEROL FUMARATE 80/4.5 mcg INHALER IH SCH ×2 (10:05→22:42)
[2023-04-29 10:10] LABS: BASO % 0.6 % (0-2.0); EOS % 1.6 % (0-4.5); HEMATOCRIT 37.3 % (32.4-45.2); HEMOGLOBIN 12.1 GM/dL (10.7-15.3); LYMPH % 20.2 % (8-40); MCH 30.8 pg (25.7-33.7); MCHC 32.4 g/dl (32.0-36.0); MEAN PLT VOLUME 9.1 fl (7.5-11.1); NEUT % 72.6 % (42.8-82.8); PLATELET COUNT 211 10^3/uL (134-434); RBC 3.93 M/mm3 (3.60-5.2); WHITE BLOOD COUNT 3.6 K/mm3 (4.0-10.0)
[2023-04-29 11:36] LABS: POTASSIUM 3.8 mmol/L (3.5-5.1)
[2023-04-29 11:44] LABS: ALBUMIN 2.8 g/dl (3.4-5.0)
[2023-04-29 11:45] LABS: CREATININE 1.2 mg/dL (0.55-1.3)
[2023-04-29 11:47] LABS: BILIRUBIN,TOTAL 0.5 mg/dL (0.2-1); CALCIUM 9.1 mg/dL (8.5-10.1)
[2023-04-29] MEDS: MIRTAZAPINE 15 MG TABLET (FP) PO SCH (22:41)
[2023-04-29] MEDS: ATORVASTATIN CA 40 MG TABLET (FP) PO SCH (22:42)
[2023-04-30] MEDS: FUROSEMIDE 40 MG TABLET (FP) PO SCH (10:01)
[2023-04-30] MEDS: APIXABAN 2.5 MG TABLET PO SCH (10:01)
[2023-04-30] MEDS: QUEtiapine FUMARATE 25 MG TABLET PO SCH (10:02)
[2023-04-30] MEDS: URSODIOL 300 MG CAPSULE PO SCH (10:03)
[2023-04-30] MEDS: ISOSORBIDE MONONITRATE 60 MG TAB.SR.24H (FP) PO SCH (10:03)
[2023-04-30] MEDS: PANTOPRAZOLE 20 MG TABLET PO SCH (10:03)
[2023-04-30] MEDS: AMIODARONE HCL 200 MG TABLET PO SCH (10:04)
[2023-04-30] MEDS: BUDESONIDE/FORMETEROL FUMARATE 80/4.5 mcg INHALER IH SCH (10:13)
[2023-04-30 11:07] LABS: BASO % 1.5 % (0-2.0); EOS % 1.8 % (0-4.5); HEMATOCRIT 34.8 % (32.4-45.2); HEMOGLOBIN 11.8 GM/dL (10.7-15.3); LYMPH % 23.6 % (8-40); MCH 31.3 pg (25.7-33.7); MCHC 33.9 g/dl (32.0-36.0); MEAN CELL VOLUME 92.4 fl (80-96); MEAN PLT VOLUME 8.6 fl (7.5-11.1); MONO % 7.2 % (3.8-10.2); NEUT % 65.9 % (42.8-82.8); PLATELET COUNT 207 10^3/uL (134-434); RBC 3.77 M/mm3 (3.60-5.2); WHITE BLOOD COUNT 3.9 K/mm3 (4.0-10.0)
[2023-04-30 11:28] LABS: POTASSIUM 3.7 mmol/L (3.5-5.1)
[2023-04-30 11:43] LABS: CALCIUM 9.1 mg/dL (8.5-10.1)
[2023-04-30 11:44] LABS: BLOOD UREA NITROGEN 21.1 mg/dL (7-18)
[2023-04-30 11:47] LABS: CREATININE 1.4 mg/dL (0.55-1.3)
[2023-04-30 18:39] VITALS: BP 100/65; PULSE 82; TEMP 98
== END 2023-04-30 08:40 | DRG 291 ==
LOC: JER 08:57 → JERBED 14:22 → J4W 15:22 → OBSVTOIN 04-27 10:20 → J5S 04-27 18:50
PROVIDERS: ADMIT Internal Medicine; ATTEND Internal Medicine
DX: I13.0 Hypertensive heart and chronic kidney disease with heart failure and stage 1 through stage 4 chronic kidney disease, or unspecified chronic kidney disease (principal); E43 Unspecified severe protein-calorie malnutrition; I50.31 Acute diastolic (congestive) heart failure; J96.11 Chronic respiratory failure with hypoxia; N17.9 Acute kidney failure, unspecified; Z68.1 Body mass index [BMI] 19.9 or less, adult; N18.9 Chronic kidney disease, unspecified; Z79.01 Long term (current) use of anticoagulants; I42.8 Other cardiomyopathies; J44.9 Chronic obstructive pulmonary disease, unspecified; Z99.81 Dependence on supplemental oxygen; F03.90 Unspecified dementia, unspecified severity, without behavioral disturbance, psychotic disturbance, mood disturbance, and anxiety; I11.0 Hypertensive heart disease with heart failure; I50.9 Heart failure, unspecified; E11.9 Type 2 diabetes mellitus without complications; K21.9 Gastro-esophageal reflux disease without esophagitis; D64.9 Anemia, unspecified; F32.A Depression, unspecified; Z95.810 Presence of automatic (implantable) cardiac defibrillator; I48.0 Paroxysmal atrial fibrillation; R55 Syncope and collapse; I25.10 Atherosclerotic heart disease of native coronary artery without angina pectoris; W19.XXXA Unspecified fall, initial encounter; Y93.89 Activity, other specified; Y92.89 Other specified places as the place of occurrence of the external cause; Y99.8 Other external cause status
CPT/HCPCS: 0241U-QW; 36415; 70450-TC; 71045-TC-FY; 72125-TC; 72170-TC-FY; 73521-TC-FY; 73562-TC-LT-FY; 74176-TC; 80048; 80053; 81003; 82962; 83735; 84484; 85025; 85610; 85730; 86850; 86900; 86901; 87086; 87635; 93005; 93010; 97116-GP; 97161-GP; 99285-25; G0378; J0475

== ENCOUNTER 2023-05-26 16:58 | Inpatient (IN) | payer OTHER ==
[2023-05-26 19:07] LABS: BASO % 1.5 % (0-2.0); EOS % 0.2 % (0-4.5); HEMATOCRIT 38.6 % (32.4-45.2); HEMOGLOBIN 12.8 GM/dL (10.7-15.3); LYMPH % 29.4 % (8-40); MCH 30.9 pg (25.7-33.7); MCHC 33.1 g/dl (32.0-36.0); MEAN CELL VOLUME 93.2 fl (80-96); MEAN PLT VOLUME 9.2 fl (7.5-11.1); MONO % 18.8 % (3.8-10.2); NEUT % 50.1 % (42.8-82.8); PLATELET COUNT 171 10^3/uL (134-434); RBC 4.14 M/mm3 (3.60-5.2); RDW 15.1 % (11.6-15.6); WHITE BLOOD COUNT 4.8 K/mm3 (4.0-10.0)
[2023-05-26 19:11] LABS: VENOUS BASE EXCESS 1.4 mmol/L (-2-2); VENOUS O2 SATURATION 33.1 % (70-80); VENOUS PCO2 56.3 mmHg (38-52); VENOUS PH 7.323 (7.310-7.410)
[2023-05-26 19:15] LABS: INR 1.35 (0.83-1.09); PROTHROMBIN TIME (PATIENT) 15.6 SEC (9.7-13.0)
[2023-05-26 19:31] LABS: CALCIUM 8.2 mg/dL (8.5-10.1); POTASSIUM 4.5 mmol/L (3.5-5.1)
[2023-05-26 19:32] LABS: ALBUMIN 2.7 g/dl (3.4-5.0)
[2023-05-26 19:35] LABS: CREATININE 1.3 mg/dL (0.55-1.3)
[2023-05-26 19:36] LABS: BILIRUBIN,TOTAL 0.4 mg/dL (0.2-1)
[2023-05-26 19:37] LABS: TOT PROT 7.1 g/dl (6.4-8.2)
[2023-05-26] MEDS: INSULIN SLIDING SCALE (NOVOLOG) 1 VIAL SQ SCH (22:25)
[2023-05-26] MEDS ORDERED: DEXTROSE 50%-WATER 25 GM/50 ML DISP.SYRIN IVPUSH ONE (22:26)
[2023-05-26] MEDS ORDERED: DEXTROSE 50%-WATER 25 GM/50 ML DISP.SYRIN ONE (22:28)
[2023-05-26 22:43] LABS: POTASSIUM 4.4 mmol/L (3.5-5.1)
[2023-05-26 22:44] LABS: CALCIUM 8.2 mg/dL (8.5-10.1)
[2023-05-26 22:45] LABS: BLOOD UREA NITROGEN 25.3 mg/dL (7-18); MAGNESIUM 2.1 mg/dL (1.8-2.4)
[2023-05-26 22:48] LABS: EPI CELLS 11 /uL (0-25.1); HYALINE CASTS 0 /uL (0-3.1); URINE APPEARANCE CLEAR; URINE BACTERIA 719 /uL (0-1359); URINE BILIRUBIN NEGATIVE (NEGATIVE); URINE COLOR YELLOW; URINE GLUCOSE (UA) NEGATIVE (NEGATIVE); URINE KETONE NEGATIVE (NEGATIVE); URINE LEUK ESTERASE NEGATIVE (NEGATIVE); URINE NITRITE NEGATIVE (NEGATIVE); URINE PROTEIN 1+ (NEGATIVE); URINE RBC 14 /uL (0-23.9); URINE WBC 14 /uL (0-25.8)
[2023-05-26 22:48] LABS: CREATININE 1.2 mg/dL (0.55-1.3); PHOSPHOROUS 3.8 mg/dL (2.5-4.9)
[2023-05-26 22:53] LABS: N-TERMINAL BNP 5864.5 pg/ml (5-450)
[2023-05-27] MEDS: INSULIN SLIDING SCALE (NOVOLOG) 1 VIAL SQ SCH ×4 (08:29→22:18)
[2023-05-27] MEDS ORDERED: ALBUTEROL SO4 HFA INHALER IH PRN (08:54)
[2023-05-27] MEDS ORDERED: SELENIUM SULFIDE 2.5% LOTION 4 OZ. TP PRN (08:54)
[2023-05-27] MEDS ORDERED: ISOSORBIDE MONONITRATE 30 MG TAB.SR.24H (FP) PO SCH (10:00)
[2023-05-27] MEDS: APIXABAN 2.5 MG TABLET PO SCH ×2 (10:46→22:17)
[2023-05-27] MEDS: PANTOPRAZOLE 20 MG TABLET PO SCH (10:47)
[2023-05-27] MEDS: MULTIVITAMINS (DAILY MVI) TABLET (FP) PO SCH (10:47)
[2023-05-27] MEDS: QUEtiapine FUMARATE 25 MG TABLET PO SCH (10:47)
[2023-05-27] MEDS: FUROSEMIDE 40 MG TABLET (FP) PO SCH (10:47)
[2023-05-27] MEDS: MAGNESIUM HYDROX 2400MG/30ML ORAL SUSPENSION 30 ML CUP PO SCH ×2 (10:48→22:17)
[2023-05-27] MEDS: ACETAMINOPHEN 325 MG TABLET (FP) PO PRN (10:50)
[2023-05-27] MEDS: AMIODARONE HCL 100 MG TABLET PO SCH (12:56)
[2023-05-27] MEDS: GABAPENTIN 300 MG CAPSULE PO SCH ×2 (13:06→22:18)
[2023-05-27 13:12] LABS: HEMATOCRIT 34.3 % (32.4-45.2); HEMOGLOBIN 11.5 GM/dL (10.7-15.3); MCH 30.8 pg (25.7-33.7); MCHC 33.4 g/dl (32.0-36.0); MEAN CELL VOLUME 92.3 fl (80-96); PLATELET COUNT 171 10^3/uL (134-434); RBC 3.72 M/mm3 (3.60-5.2); RDW 14.8 % (11.6-15.6); WHITE BLOOD COUNT 3.1 K/mm3 (4.0-10.0)
[2023-05-27 13:39] LABS: ANISOCYTOSIS 0; HELMET CELLS 0; HOWELL-JOLLY BODIES 0; MACROCYTOSIS 0; OVALOCYTE 0; ROULEAU 0; SICKELED CELLS 0; TARGET CELLS 0; TEAR DROP CELLS 0; TOXIC GRANULATION 0
[2023-05-27 13:54] LABS: POTASSIUM 3.6 mmol/L (3.5-5.1)
[2023-05-27 13:57] LABS: CALCIUM 8.3 mg/dL (8.5-10.1)
[2023-05-27 13:58] LABS: BLOOD UREA NITROGEN 24.6 mg/dL (7-18)
[2023-05-27 14:01] LABS: CREATININE 1.1 mg/dL (0.55-1.3)
[2023-05-27] MEDS ORDERED: SODIUM CHLORIDE 250 ML IV STA (15:12)
[2023-05-27] MEDS: ARTIFICIAL TEARS (POLYVINYL ALCOHOL) OPTH DROPS OU SCH ×2 (15:27→22:16)
[2023-05-27] MEDS: ATORVASTATIN CA 40 MG TABLET (FP) PO SCH (22:17)
[2023-05-27] MEDS: MIRTAZAPINE 15 MG TABLET (FP) PO SCH (22:18)
[2023-05-27] MEDS: SENNOSIDES 8.6MG TABLET (FP) PO SCH (22:18)
[2023-05-28] MEDS: INSULIN SLIDING SCALE (NOVOLOG) 1 VIAL SQ SCH ×4 (06:01→21:46)
[2023-05-28] MEDS: ACETAMINOPHEN 325 MG TABLET (FP) PO PRN ×2 (06:02→22:22)
[2023-05-28] MEDS: GABAPENTIN 300 MG CAPSULE PO SCH ×3 (06:02→21:45)
[2023-05-28] MEDS: FUROSEMIDE 40 MG TABLET (FP) PO SCH (09:23)
[2023-05-28] MEDS: PANTOPRAZOLE 20 MG TABLET PO SCH (09:23)
[2023-05-28] MEDS: APIXABAN 2.5 MG TABLET PO SCH ×2 (09:23→21:45)
[2023-05-28] MEDS: MULTIVITAMINS (DAILY MVI) TABLET (FP) PO SCH (09:23)
[2023-05-28] MEDS: MAGNESIUM HYDROX 2400MG/30ML ORAL SUSPENSION 30 ML CUP PO SCH ×2 (09:24→21:46)
[2023-05-28] MEDS: QUEtiapine FUMARATE 25 MG TABLET PO SCH (09:24)
[2023-05-28] MEDS: AMIODARONE HCL 100 MG TABLET PO SCH (10:55)
[2023-05-28] MEDS: ARTIFICIAL TEARS (POLYVINYL ALCOHOL) OPTH DROPS OU SCH ×2 (10:55→21:45)
[2023-05-28] MEDS ORDERED: CEFTRIAXONE 1 GM in DEXTROSE 5%-WATER - 50 ML IVPB SCH (11:15)
[2023-05-28] MEDS: AZTREONAM 1 GM in DEXTROSE 5%-WATER - 50 ML IVPB SCH ×2 (12:02→21:45)
[2023-05-28] MEDS: SENNOSIDES 8.6MG TABLET (FP) PO SCH (21:45)
[2023-05-28] MEDS: MIRTAZAPINE 15 MG TABLET (FP) PO SCH (21:45)
[2023-05-28] MEDS: ATORVASTATIN CA 40 MG TABLET (FP) PO SCH (21:45)
[2023-05-29] MEDS: INSULIN SLIDING SCALE (NOVOLOG) 1 VIAL SQ SCH ×4 (06:28→21:53)
[2023-05-29] MEDS: GABAPENTIN 300 MG CAPSULE PO SCH ×3 (06:28→21:49)
[2023-05-29] MEDS: PANTOPRAZOLE 20 MG TABLET PO SCH (09:41)
[2023-05-29] MEDS: MULTIVITAMINS (DAILY MVI) TABLET (FP) PO SCH (09:41)
[2023-05-29] MEDS: AMIODARONE HCL 100 MG TABLET PO SCH (09:42)
[2023-05-29] MEDS: MAGNESIUM HYDROX 2400MG/30ML ORAL SUSPENSION 30 ML CUP PO SCH ×2 (09:42→21:49)
[2023-05-29] MEDS: FUROSEMIDE 40 MG TABLET (FP) PO SCH (09:42)
[2023-05-29] MEDS: APIXABAN 2.5 MG TABLET PO SCH ×2 (09:42→21:49)
[2023-05-29] MEDS: QUEtiapine FUMARATE 25 MG TABLET PO SCH (09:42)
[2023-05-29] MEDS: ARTIFICIAL TEARS (POLYVINYL ALCOHOL) OPTH DROPS OU SCH ×2 (09:57→21:50)
[2023-05-29] MEDS: AZTREONAM 1 GM in DEXTROSE 5%-WATER - 50 ML IVPB SCH ×2 (09:57→21:48)
[2023-05-29] MEDS ORDERED: VANCOMYCIN/WATER FOR INJ (PEG) 1,000 MG/200 ML BAG IVPB ONE (18:25)
[2023-05-29] MEDS ORDERED: INSULIN (NOVOLOG) ASPART 100 UNITS/ML 10ML VIAL ONE (21:17)
[2023-05-29] MEDS: MIRTAZAPINE 15 MG TABLET (FP) PO SCH (21:49)
[2023-05-29] MEDS: SENNOSIDES 8.6MG TABLET (FP) PO SCH (21:50)
[2023-05-29] MEDS: ATORVASTATIN CA 40 MG TABLET (FP) PO SCH (21:50)
[2023-05-30] MEDS: GABAPENTIN 300 MG CAPSULE PO SCH ×3 (06:17→21:30)
[2023-05-30] MEDS: INSULIN SLIDING SCALE (NOVOLOG) 1 VIAL SQ SCH ×4 (06:18→22:40)
[2023-05-30 07:02] LABS: BASO % 0.5 % (0-2.0); EOS % 1.6 % (0-4.5); HEMATOCRIT 32.2 % (32.4-45.2); HEMOGLOBIN 11.2 GM/dL (10.7-15.3); LYMPH % 29.2 % (8-40); MCH 31.6 pg (25.7-33.7); MCHC 34.8 g/dl (32.0-36.0); MEAN CELL VOLUME 90.9 fl (80-96); MONO % 14.2 % (3.8-10.2); NEUT % 54.5 % (42.8-82.8); PLATELET COUNT 172 10^3/uL (134-434); RBC 3.54 M/mm3 (3.60-5.2); RDW 14.4 % (11.6-15.6); WHITE BLOOD COUNT 4.4 K/mm3 (4.0-10.0)
[2023-05-30 07:15] LABS: CALCIUM 8.7 mg/dL (8.5-10.1)
[2023-05-30 07:16] LABS: BLOOD UREA NITROGEN 22.6 mg/dL (7-18)
[2023-05-30] MEDS: ARTIFICIAL TEARS (POLYVINYL ALCOHOL) OPTH DROPS OU SCH ×2 (09:48→21:33)
[2023-05-30] MEDS: AZTREONAM 1 GM in DEXTROSE 5%-WATER - 50 ML IVPB SCH ×2 (09:48→21:32)
[2023-05-30] MEDS: APIXABAN 2.5 MG TABLET PO SCH ×2 (09:49→21:29)
[2023-05-30] MEDS: QUEtiapine FUMARATE 25 MG TABLET PO SCH (09:49)
[2023-05-30] MEDS: MAGNESIUM HYDROX 2400MG/30ML ORAL SUSPENSION 30 ML CUP PO SCH ×2 (09:49→21:29)
[2023-05-30] MEDS: FUROSEMIDE 40 MG TABLET (FP) PO SCH (09:49)
[2023-05-30] MEDS: MULTIVITAMINS (DAILY MVI) TABLET (FP) PO SCH (09:50)
[2023-05-30] MEDS: AMIODARONE HCL 100 MG TABLET PO SCH (09:50)
[2023-05-30] MEDS: PANTOPRAZOLE 20 MG TABLET PO SCH (09:50)
[2023-05-30] MEDS: MIRTAZAPINE 15 MG TABLET (FP) PO SCH (21:29)
[2023-05-30] MEDS: ATORVASTATIN CA 40 MG TABLET (FP) PO SCH (21:30)
[2023-05-30] MEDS: VANCOMYCIN/WATER FOR INJ (PEG) 1,000 MG/200 ML BAG IVPB SCH (21:39)
[2023-05-30] MEDS: SENNOSIDES 8.6MG TABLET (FP) PO SCH (21:39)
[2023-05-31] MEDS: GABAPENTIN 300 MG CAPSULE PO SCH ×3 (06:44→21:05)
[2023-05-31] MEDS: INSULIN SLIDING SCALE (NOVOLOG) 1 VIAL SQ SCH ×4 (06:44→21:29)
[2023-05-31] MEDS: AZTREONAM 1 GM in DEXTROSE 5%-WATER - 50 ML IVPB SCH ×2 (09:24→21:06)
[2023-05-31] MEDS: MAGNESIUM HYDROX 2400MG/30ML ORAL SUSPENSION 30 ML CUP PO SCH ×2 (09:24→21:07)
[2023-05-31] MEDS: PANTOPRAZOLE 20 MG TABLET PO SCH (09:25)
[2023-05-31] MEDS: QUEtiapine FUMARATE 25 MG TABLET PO SCH (09:25)
[2023-05-31] MEDS: APIXABAN 2.5 MG TABLET PO SCH ×2 (09:25→21:05)
[2023-05-31] MEDS: FUROSEMIDE 40 MG TABLET (FP) PO SCH (09:25)
[2023-05-31] MEDS: AMIODARONE HCL 100 MG TABLET PO SCH (09:25)
[2023-05-31] MEDS: MULTIVITAMINS (DAILY MVI) TABLET (FP) PO SCH (09:25)
[2023-05-31] MEDS: ARTIFICIAL TEARS (POLYVINYL ALCOHOL) OPTH DROPS OU SCH ×2 (09:25→21:07)
[2023-05-31] MEDS ORDERED: INSULIN (NOVOLOG) ASPART 100 UNITS/ML 10ML VIAL ONE ×2 (10:31→10:33)
[2023-05-31] MEDS: MIRTAZAPINE 15 MG TABLET (FP) PO SCH (21:05)
[2023-05-31] MEDS: VANCOMYCIN/WATER FOR INJ (PEG) 1,000 MG/200 ML BAG IVPB SCH (21:05)
[2023-05-31] MEDS: ATORVASTATIN CA 40 MG TABLET (FP) PO SCH (21:05)
[2023-05-31] MEDS: SENNOSIDES 8.6MG TABLET (FP) PO SCH (21:07)
[2023-06-01] MEDS: INSULIN SLIDING SCALE (NOVOLOG) 1 VIAL SQ SCH ×4 (06:28→21:37)
[2023-06-01] MEDS: GABAPENTIN 300 MG CAPSULE PO SCH ×3 (06:30→21:26)
[2023-06-01 06:40] LABS: BASO % 0.3 % (0-2.0); HEMATOCRIT 39.9 % (32.4-45.2); LYMPH % 27.5 % (8-40); MCH 30.8 pg (25.7-33.7); MCHC 32.7 g/dl (32.0-36.0); MEAN CELL VOLUME 94.2 fl (80-96); MEAN PLT VOLUME 8.7 fl (7.5-11.1); MONO % 9.5 % (3.8-10.2); NEUT % 60.7 % (42.8-82.8); PLATELET COUNT 194 10^3/uL (134-434); RBC 4.23 M/mm3 (3.60-5.2); RDW 14.5 % (11.6-15.6); WHITE BLOOD COUNT 5.5 K/mm3 (4.0-10.0)
[2023-06-01 07:10] LABS: POTASSIUM 3.9 mmol/L (3.5-5.1)
[2023-06-01 07:11] LABS: CALCIUM 8.8 mg/dL (8.5-10.1)
[2023-06-01 07:12] LABS: BLOOD UREA NITROGEN 18.6 mg/dL (7-18)
[2023-06-01 07:15] LABS: CREATININE 0.9 mg/dL (0.55-1.3)
[2023-06-01] MEDS: QUEtiapine FUMARATE 25 MG TABLET PO SCH (09:37)
[2023-06-01] MEDS: AMIODARONE HCL 100 MG TABLET PO SCH (09:38)
[2023-06-01] MEDS: MULTIVITAMINS (DAILY MVI) TABLET (FP) PO SCH (09:38)
[2023-06-01] MEDS: FUROSEMIDE 40 MG TABLET (FP) PO SCH (09:38)
[2023-06-01] MEDS: APIXABAN 2.5 MG TABLET PO SCH ×2 (09:38→21:26)
[2023-06-01] MEDS: ARTIFICIAL TEARS (POLYVINYL ALCOHOL) OPTH DROPS OU SCH ×2 (09:38→21:27)
[2023-06-01] MEDS: PANTOPRAZOLE 20 MG TABLET PO SCH (09:38)
[2023-06-01] MEDS: AZTREONAM 1 GM in DEXTROSE 5%-WATER - 50 ML IVPB SCH (09:38)
[2023-06-01] MEDS: MAGNESIUM HYDROX 2400MG/30ML ORAL SUSPENSION 30 ML CUP PO SCH ×2 (09:38→21:26)
[2023-06-01 13:46] VITALS: BMI 17.3
[2023-06-01] MEDS: AMINO ACIDS/PROTEIN HYDROLYS 30 ML LIQUID.PKT PO SCH (17:38)
[2023-06-01] MEDS: SENNOSIDES 8.6MG TABLET (FP) PO SCH (21:26)
[2023-06-01] MEDS: metoPROLOL SUCCINATE 25 MG TAB.SR.24H (FP) PO SCH (21:26)
[2023-06-01] MEDS: MIRTAZAPINE 15 MG TABLET (FP) PO SCH (21:26)
[2023-06-01] MEDS: VANCOMYCIN/WATER FOR INJ (PEG) 1,000 MG/200 ML BAG IVPB SCH (21:26)
[2023-06-01] MEDS: ATORVASTATIN CA 40 MG TABLET (FP) PO SCH (21:36)
[2023-06-02] MEDS: GABAPENTIN 300 MG CAPSULE PO SCH ×2 (05:59→14:37)
[2023-06-02] MEDS: INSULIN SLIDING SCALE (NOVOLOG) 1 VIAL SQ SCH ×2 (05:59→11:17)
[2023-06-02] MEDS: metoPROLOL SUCCINATE 25 MG TAB.SR.24H (FP) PO SCH ×2 (06:39→09:06)
[2023-06-02] MEDS ORDERED: INSULIN (NOVOLOG) ASPART 100 UNITS/ML 10ML VIAL ONE (06:40)
[2023-06-02] MEDS: AMINO ACIDS/PROTEIN HYDROLYS 30 ML LIQUID.PKT PO SCH (08:51)
[2023-06-02] MEDS: AMIODARONE HCL 100 MG TABLET PO SCH (09:04)
[2023-06-02] MEDS: MAGNESIUM HYDROX 2400MG/30ML ORAL SUSPENSION 30 ML CUP PO SCH (09:04)
[2023-06-02] MEDS: PANTOPRAZOLE 20 MG TABLET PO SCH (09:05)
[2023-06-02] MEDS: QUEtiapine FUMARATE 25 MG TABLET PO SCH (09:05)
[2023-06-02] MEDS: MULTIVITAMINS (DAILY MVI) TABLET (FP) PO SCH (09:05)
[2023-06-02] MEDS: APIXABAN 2.5 MG TABLET PO SCH (09:06)
[2023-06-02] MEDS: FUROSEMIDE 40 MG TABLET (FP) PO SCH (09:06)
[2023-06-02] MEDS: ARTIFICIAL TEARS (POLYVINYL ALCOHOL) OPTH DROPS OU SCH (09:06)
[2023-06-02] MEDS ORDERED: ASCORBIC ACID 500 MG TABLET (FP) PO SCH (10:00)
[2023-06-02 12:36] VITALS: TEMP 98.1
[2023-06-03 01:10] VITALS: BP 136/76; PULSE 65; RESP 21
== END 2023-06-02 16:59 | DRG 689 ==
LOC: JER 16:58 → JERBED 21:39 → J2W 05-27 10:02 → OBSVTOIN 05-27 13:58
PROVIDERS: ADMIT Internal Medicine; ATTEND Internal Medicine
DX: N39.0 Urinary tract infection, site not specified (principal); E43 Unspecified severe protein-calorie malnutrition; Z68.1 Body mass index [BMI] 19.9 or less, adult; I42.8 Other cardiomyopathies; I13.0 Hypertensive heart and chronic kidney disease with heart failure and stage 1 through stage 4 chronic kidney disease, or unspecified chronic kidney disease; I50.32 Chronic diastolic (congestive) heart failure; I47.1 Supraventricular tachycardia; E78.5 Hyperlipidemia, unspecified; E11.9 Type 2 diabetes mellitus without complications; D64.9 Anemia, unspecified; B95.2 Enterococcus as the cause of diseases classified elsewhere; G47.00 Insomnia, unspecified; F32.A Depression, unspecified; K21.9 Gastro-esophageal reflux disease without esophagitis; E78.00 Pure hypercholesterolemia, unspecified; I25.10 Atherosclerotic heart disease of native coronary artery without angina pectoris; F03.90 Unspecified dementia, unspecified severity, without behavioral disturbance, psychotic disturbance, mood disturbance, and anxiety; I48.0 Paroxysmal atrial fibrillation; R09.02 Hypoxemia; E86.0 Dehydration; R33.9 Retention of urine, unspecified; E11.22 Type 2 diabetes mellitus with diabetic chronic kidney disease; N18.9 Chronic kidney disease, unspecified; R77.8 Other specified abnormalities of plasma proteins; Z86.73 Personal history of transient ischemic attack (TIA), and cerebral infarction without residual deficits; Z95.810 Presence of automatic (implantable) cardiac defibrillator
CPT/HCPCS: 36415; 70450-TC; 71045-TC-FY; 80048; 80053; 81003; 82803; 82962; 83735; 83880; 84100; 84484; 85025; 85610; 86850; 86900; 86901; 87086; 87186; 87635; 93005; 93010; 99285-25; G0378; G0480

== ENCOUNTER 2023-06-10 06:34 | Inpatient (IN) | payer OTHER ==
[2023-06-10] MEDS ORDERED: ACETAMINOPHEN 1000 MG/100 ML BAG IVPB ONE (07:47)
[2023-06-10] MEDS ORDERED: ACETAMINOPHEN INJECTION 100 ML IVPB ONE (08:06)
[2023-06-10 08:26] LABS: BASO % 1.5 % (0-2.0); HEMATOCRIT 34.2 % (32.4-45.2); HEMOGLOBIN 10.9 GM/dL (10.7-15.3); LYMPH % 22.8 % (8-40); MCH 30.2 pg (25.7-33.7); MCHC 31.9 g/dl (32.0-36.0); MEAN CELL VOLUME 94.8 fl (80-96); MEAN PLT VOLUME 9.3 fl (7.5-11.1); MONO % 9.8 % (3.8-10.2); NEUT % 64.9 % (42.8-82.8); PLATELET COUNT 281 10^3/uL (134-434); RBC 3.61 M/mm3 (3.60-5.2); RDW 14.5 % (11.6-15.6); WHITE BLOOD COUNT 6.9 K/mm3 (4.0-10.0)
[2023-06-10 08:32] LABS: POTASSIUM 4.5 mmol/L (3.5-5.1)
[2023-06-10 08:35] LABS: ALBUMIN 2.9 g/dl (3.4-5.0); BLOOD UREA NITROGEN 24.7 mg/dL (7-18); MAGNESIUM 1.8 mg/dL (1.8-2.4)
[2023-06-10 08:37] LABS: INR 1.11 (0.83-1.09); PROTHROMBIN TIME (PATIENT) 12.9 SEC (9.7-13.0)
[2023-06-10 08:40] LABS: ACTIVATED PTT 26.9 SECONDS (25.2-36.5); BILIRUBIN,TOTAL 0.3 mg/dL (0.2-1); TOT PROT 7.8 g/dl (6.4-8.2)
[2023-06-10] MEDS ORDERED: ERTAPENEM SODIUM 1 GM in SODIUM CHLORIDE 50 ML IVPB ONE (10:00)
[2023-06-10] MEDS ORDERED: ALBUTEROL SO4 HFA INHALER IH PRN (10:18)
[2023-06-10] MEDS ORDERED: ACETAMINOPHEN 325 MG TABLET (FP) PO PRN (10:18)
[2023-06-10] MEDS ORDERED: APIXABAN 2.5 MG TABLET PO SCH (11:00)
[2023-06-10] MEDS ORDERED: AMIODARONE HCL 200 MG TABLET PO SCH (11:00)
[2023-06-10] MEDS ORDERED: AMIODARONE HCL 200 MG TABLET ONE (11:47)
[2023-06-10] MEDS ORDERED: LIDOCAINE 4% PATCH TP ONE ×2 (11:47→22:37)
[2023-06-10] MEDS ORDERED: APIXABAN 2.5 MG TABLET ONE (11:47)
[2023-06-10] MEDS ORDERED: ERTAPENEM SODIUM 1 GM VIAL ONE (11:47)
[2023-06-10] MEDS ORDERED: ISOSORBIDE MONONITRATE 60 MG TAB.SR.24H (FP) PO ONE (11:47)
[2023-06-10] MEDS: LIDOCAINE 4% PATCH TP SCH (11:48)
[2023-06-10] MEDS: ISOSORBIDE MONONITRATE 60 MG TAB.SR.24H (FP) PO SCH (11:48)
[2023-06-10] MEDS: GABAPENTIN 300 MG CAPSULE PO SCH ×2 (14:06→22:50)
[2023-06-10 20:07] LABS: EPI CELLS 13 /uL (0-25.1); HYALINE CASTS 0 /uL (0-3.1); URINE APPEARANCE CLEAR; URINE BACTERIA 11 /uL (0-1359); URINE BILIRUBIN NEGATIVE (NEGATIVE); URINE COLOR YELLOW; URINE GLUCOSE (UA) NEGATIVE (NEGATIVE); URINE KETONE NEGATIVE (NEGATIVE); URINE LEUK ESTERASE NEGATIVE (NEGATIVE); URINE NITRITE NEGATIVE (NEGATIVE); URINE PROTEIN 2+ (NEGATIVE); URINE RBC 11 /uL (0-23.9); URINE WBC 2 /uL (0-25.8)
[2023-06-10] MEDS ORDERED: SENNOSIDES 8.6MG TABLET (FP) PO SCH (22:00)
[2023-06-10] MEDS ORDERED: PANTOPRAZOLE 20 MG TABLET PO ONE (22:36)
[2023-06-10] MEDS ORDERED: metoPROLOL SUCCINATE 25 MG TAB.SR.24H (FP) PO ONE (22:37)
[2023-06-10] MEDS ORDERED: GABAPENTIN 300 MG CAPSULE ONE (22:37)
[2023-06-10] MEDS ORDERED: ATORVASTATIN CA 40 MG TABLET (FP) ONE (22:37)
[2023-06-10] MEDS ORDERED: MIRTAZAPINE 15 MG TABLET (FP) ONE (22:37)
[2023-06-10] MEDS: LIDOCAINE PATCH REMOVAL MC SCH (22:50)
[2023-06-10] MEDS: ATORVASTATIN CA 40 MG TABLET (FP) PO SCH (22:50)
[2023-06-10] MEDS: MIRTAZAPINE 15 MG TABLET (FP) PO SCH (22:51)
[2023-06-10] MEDS: metoPROLOL SUCCINATE 25 MG TAB.SR.24H (FP) PO SCH (22:51)
[2023-06-10] MEDS: PANTOPRAZOLE 20 MG TABLET PO SCH (22:51)
[2023-06-10] MEDS: ARTIFICIAL TEARS (POLYVINYL ALCOHOL) OPTH DROPS OU SCH (23:17)
[2023-06-10] MEDS: FLUTICASONE/SALMETEROL (WIXELA) 100 MCG/50 MCG DISKUS IH SCH (23:17)
[2023-06-11] MEDS ORDERED: GABAPENTIN 300 MG CAPSULE ONE ×2 (06:08→22:39)
[2023-06-11] MEDS: GABAPENTIN 300 MG CAPSULE PO SCH ×3 (06:42→23:01)
[2023-06-11] MEDS: FLUTICASONE/SALMETEROL (WIXELA) 100 MCG/50 MCG DISKUS IH SCH ×2 (09:30→22:50)
[2023-06-11] MEDS: ARTIFICIAL TEARS (POLYVINYL ALCOHOL) OPTH DROPS OU SCH ×2 (09:30→22:45)
[2023-06-11] MEDS: LIDOCAINE 4% PATCH TP SCH (09:30)
[2023-06-11] MEDS: ISOSORBIDE MONONITRATE 60 MG TAB.SR.24H (FP) PO SCH (09:31)
[2023-06-11] MEDS: metoPROLOL SUCCINATE 25 MG TAB.SR.24H (FP) PO SCH ×2 (09:31→23:01)
[2023-06-11] MEDS: AMIODARONE HCL 100 MG TABLET PO SCH (09:31)
[2023-06-11] MEDS: PANTOPRAZOLE 20 MG TABLET PO SCH ×2 (09:31→23:01)
[2023-06-11] MEDS: FUROSEMIDE 40 MG TABLET (FP) PO SCH (09:31)
[2023-06-11] MEDS: ERTAPENEM SODIUM 0.5 GM in SODIUM CHLORIDE 50 ML IVPB SCH (09:31)
[2023-06-11] MEDS: QUEtiapine FUMARATE 25 MG TABLET PO SCH (09:31)
[2023-06-11 09:50] LABS: CHLORIDE 107 mmol/L (98-107); SODIUM 141 mmol/L (136-145)
[2023-06-11 09:58] LABS: ALBUMIN 2.9 g/dl (3.4-5.0); ANION GAP 6 mmol/L (4-13); BLOOD UREA NITROGEN 17.3 mg/dL (7-18); CO2 29 mmol/L (21-32); CREATININE 0.8 mg/dL (0.55-1.3); GLUCOSE,RANDOM 98 mg/dL (74-106); SGOT/AST 52 U/L (15-37); SGPT/ALT 96 U/L (13-61)
[2023-06-11 10:00] LABS: BILIRUBIN,TOTAL 0.5 mg/dL (0.2-1); TOT PROT 7.8 g/dl (6.4-8.2)
[2023-06-11 10:01] LABS: ALK PHOS 258 U/L (45-117)
[2023-06-11] MEDS ORDERED: metoPROLOL SUCCINATE 25 MG TAB.SR.24H (FP) PO ONE (22:38)
[2023-06-11] MEDS ORDERED: ATORVASTATIN CA 40 MG TABLET (FP) ONE (22:38)
[2023-06-11] MEDS ORDERED: PANTOPRAZOLE 20 MG TABLET PO ONE (22:38)
[2023-06-11] MEDS ORDERED: MIRTAZAPINE 15 MG TABLET (FP) ONE (22:39)
[2023-06-11] MEDS: ATORVASTATIN CA 40 MG TABLET (FP) PO SCH (22:50)
[2023-06-11] MEDS: LIDOCAINE PATCH REMOVAL MC SCH (23:01)
[2023-06-11] MEDS: MIRTAZAPINE 15 MG TABLET (FP) PO SCH (23:01)
[2023-06-12] MEDS ORDERED: GABAPENTIN 300 MG CAPSULE ONE ×2 (06:31→13:32)
[2023-06-12] MEDS: GABAPENTIN 300 MG CAPSULE PO SCH ×3 (06:34→22:29)
[2023-06-12 08:35] LABS: POTASSIUM 5.2 mmol/L (3.5-5.1)
[2023-06-12 08:39] LABS: ALBUMIN 2.6 g/dl (3.4-5.0); CALCIUM 8.7 mg/dL (8.5-10.1)
[2023-06-12 08:40] LABS: BLOOD UREA NITROGEN 16.5 mg/dL (7-18)
[2023-06-12 08:44] LABS: BILIRUBIN,TOTAL 0.8 mg/dL (0.2-1); TOT PROT 7.4 g/dl (6.4-8.2)
[2023-06-12] MEDS: FLUTICASONE/SALMETEROL (WIXELA) 100 MCG/50 MCG DISKUS IH SCH ×2 (11:03→22:28)
[2023-06-12] MEDS: ARTIFICIAL TEARS (POLYVINYL ALCOHOL) OPTH DROPS OU SCH ×2 (11:03→22:29)
[2023-06-12] MEDS ORDERED: PANTOPRAZOLE 20 MG TABLET PO ONE (11:11)
[2023-06-12] MEDS ORDERED: FUROSEMIDE 40 MG TABLET (FP) ONE (11:11)
[2023-06-12] MEDS ORDERED: metoPROLOL SUCCINATE 25 MG TAB.SR.24H (FP) PO ONE (11:11)
[2023-06-12] MEDS ORDERED: LIDOCAINE 4% PATCH TP ONE (11:12)
[2023-06-12] MEDS ORDERED: ISOSORBIDE MONONITRATE 30 MG TAB.SR.24H (FP) PO ONE (11:12)
[2023-06-12] MEDS ORDERED: QUEtiapine FUMARATE 25 MG TABLET ONE (11:12)
[2023-06-12] MEDS ORDERED: AMIODARONE HCL 200 MG TABLET ONE (11:12)
[2023-06-12] MEDS: AMIODARONE HCL 100 MG TABLET PO SCH (11:19)
[2023-06-12] MEDS: ERTAPENEM SODIUM 0.5 GM in SODIUM CHLORIDE 50 ML IVPB SCH (11:19)
[2023-06-12] MEDS: LIDOCAINE 4% PATCH TP SCH (11:19)
[2023-06-12] MEDS: ISOSORBIDE MONONITRATE 60 MG TAB.SR.24H (FP) PO SCH (11:19)
[2023-06-12] MEDS: FUROSEMIDE 40 MG TABLET (FP) PO SCH (11:20)
[2023-06-12] MEDS: metoPROLOL SUCCINATE 25 MG TAB.SR.24H (FP) PO SCH ×2 (11:20→22:29)
[2023-06-12] MEDS: QUEtiapine FUMARATE 25 MG TABLET PO SCH (11:20)
[2023-06-12] MEDS: PANTOPRAZOLE 20 MG TABLET PO SCH ×2 (11:20→22:29)
[2023-06-12] MEDS: LIDOCAINE PATCH REMOVAL MC SCH (22:29)
[2023-06-12] MEDS: ATORVASTATIN CA 40 MG TABLET (FP) PO SCH (22:29)
[2023-06-12] MEDS: MIRTAZAPINE 15 MG TABLET (FP) PO SCH (22:30)
[2023-06-13] MEDS: GABAPENTIN 300 MG CAPSULE PO SCH ×3 (05:02→23:18)
[2023-06-13] MEDS ORDERED: metoPROLOL SUCCINATE 25 MG TAB.SR.24H (FP) PO ONE (10:23)
[2023-06-13] MEDS ORDERED: FUROSEMIDE 40 MG TABLET (FP) ONE (10:23)
[2023-06-13] MEDS ORDERED: PANTOPRAZOLE 20 MG TABLET PO ONE (10:23)
[2023-06-13] MEDS ORDERED: ISOSORBIDE MONONITRATE 60 MG TAB.SR.24H (FP) PO ONE (10:23)
[2023-06-13] MEDS ORDERED: QUEtiapine FUMARATE 25 MG TABLET ONE (10:24)
[2023-06-13] MEDS ORDERED: LIDOCAINE 4% PATCH TP ONE (10:24)
[2023-06-13] MEDS ORDERED: AMIODARONE HCL 200 MG TABLET ONE (10:31)
[2023-06-13] MEDS: ISOSORBIDE MONONITRATE 60 MG TAB.SR.24H (FP) PO SCH (10:39)
[2023-06-13] MEDS: AMIODARONE HCL 100 MG TABLET PO SCH (10:39)
[2023-06-13] MEDS: PANTOPRAZOLE 20 MG TABLET PO SCH ×2 (10:39→23:18)
[2023-06-13] MEDS: metoPROLOL SUCCINATE 25 MG TAB.SR.24H (FP) PO SCH ×2 (10:39→23:18)
[2023-06-13] MEDS: QUEtiapine FUMARATE 25 MG TABLET PO SCH (10:39)
[2023-06-13] MEDS: FUROSEMIDE 40 MG TABLET (FP) PO SCH (10:39)
[2023-06-13] MEDS: FLUTICASONE/SALMETEROL (WIXELA) 100 MCG/50 MCG DISKUS IH SCH ×2 (10:40→23:18)
[2023-06-13] MEDS: LIDOCAINE 4% PATCH TP SCH (10:40)
[2023-06-13] MEDS: ERTAPENEM SODIUM 0.5 GM in SODIUM CHLORIDE 50 ML IVPB SCH (11:10)
[2023-06-13] MEDS: ARTIFICIAL TEARS (POLYVINYL ALCOHOL) OPTH DROPS OU SCH ×2 (11:11→23:17)
[2023-06-13 12:01] LABS: POTASSIUM 3.8 mmol/L (3.5-5.1)
[2023-06-13 12:03] LABS: CALCIUM 8.4 mg/dL (8.5-10.1)
[2023-06-13 12:04] LABS: BLOOD UREA NITROGEN 16.2 mg/dL (7-18)
[2023-06-13 12:07] LABS: CREATININE 0.9 mg/dL (0.55-1.3)
[2023-06-13 12:08] LABS: BILIRUBIN,TOTAL 0.2 mg/dL (0.2-1)
[2023-06-13 12:09] LABS: TOT PROT 7.4 g/dl (6.4-8.2)
[2023-06-13 12:11] LABS: ALBUMIN 3.6 g/dl (3.4-5.0)
[2023-06-13] MEDS: MIRTAZAPINE 15 MG TABLET (FP) PO SCH (23:18)
[2023-06-13] MEDS: ATORVASTATIN CA 40 MG TABLET (FP) PO SCH (23:18)
[2023-06-13] MEDS: LIDOCAINE PATCH REMOVAL MC SCH (23:28)
[2023-06-14] MEDS: GABAPENTIN 300 MG CAPSULE PO SCH ×3 (05:46→22:02)
[2023-06-14 07:29] LABS: BASO % 0.7 % (0-2.0); EOS % 1.5 % (0-4.5); HEMATOCRIT 30.6 % (32.4-45.2); HEMOGLOBIN 10.6 GM/dL (10.7-15.3); LYMPH % 22.7 % (8-40); MCH 31.6 pg (25.7-33.7); MCHC 34.7 g/dl (32.0-36.0); MEAN CELL VOLUME 91.3 fl (80-96); MEAN PLT VOLUME 9.7 fl (7.5-11.1); MONO % 14.8 % (3.8-10.2); NEUT % 60.3 % (42.8-82.8); PLATELET COUNT 235 10^3/uL (134-434); RBC 3.35 M/mm3 (3.60-5.2); RDW 14.7 % (11.6-15.6); WHITE BLOOD COUNT 4.5 K/mm3 (4.0-10.0)
[2023-06-14 07:33] LABS: POTASSIUM 3.7 mmol/L (3.5-5.1)
[2023-06-14 07:37] LABS: CALCIUM 8.4 mg/dL (8.5-10.1)
[2023-06-14 07:38] LABS: BLOOD UREA NITROGEN 15.6 mg/dL (7-18)
[2023-06-14 07:41] LABS: CREATININE 0.9 mg/dL (0.55-1.3)
[2023-06-14 07:43] LABS: BILIRUBIN,TOTAL 0.5 mg/dL (0.2-1); TOT PROT 6.8 g/dl (6.4-8.2)
[2023-06-14 07:48] LABS: ALBUMIN 2.6 g/dl (3.4-5.0)
[2023-06-14] MEDS: AMIODARONE HCL 100 MG TABLET PO SCH (11:15)
[2023-06-14] MEDS: QUEtiapine FUMARATE 25 MG TABLET PO SCH (11:16)
[2023-06-14] MEDS: ISOSORBIDE MONONITRATE 60 MG TAB.SR.24H (FP) PO SCH (11:16)
[2023-06-14] MEDS: FUROSEMIDE 40 MG TABLET (FP) PO SCH (11:16)
[2023-06-14] MEDS: PANTOPRAZOLE 20 MG TABLET PO SCH ×2 (11:16→22:02)
[2023-06-14] MEDS: metoPROLOL SUCCINATE 25 MG TAB.SR.24H (FP) PO SCH ×2 (11:16→22:02)
[2023-06-14] MEDS: LIDOCAINE 4% PATCH TP SCH (11:18)
[2023-06-14] MEDS: ERTAPENEM SODIUM 0.5 GM in SODIUM CHLORIDE 50 ML IVPB SCH (11:19)
[2023-06-14] MEDS: FLUTICASONE/SALMETEROL (WIXELA) 100 MCG/50 MCG DISKUS IH SCH ×2 (11:42→22:02)
[2023-06-14] MEDS: ARTIFICIAL TEARS (POLYVINYL ALCOHOL) OPTH DROPS OU SCH ×2 (11:43→22:02)
[2023-06-14] MEDS: LIDOCAINE PATCH REMOVAL MC SCH (22:02)
[2023-06-14] MEDS: ATORVASTATIN CA 40 MG TABLET (FP) PO SCH (22:02)
[2023-06-14] MEDS: MIRTAZAPINE 15 MG TABLET (FP) PO SCH (22:02)
[2023-06-14 23:00] VITALS: BMI 17.7
[2023-06-15] MEDS: GABAPENTIN 300 MG CAPSULE PO SCH ×3 (06:43→21:43)
[2023-06-15 08:32] LABS: BASO % 1.3 % (0-2.0); EOS % 0.8 % (0-4.5); HEMATOCRIT 35.5 % (32.4-45.2); HEMOGLOBIN 11.3 GM/dL (10.7-15.3); LYMPH % 28.6 % (8-40); MCH 30.3 pg (25.7-33.7); MEAN CELL VOLUME 94.6 fl (80-96); MEAN PLT VOLUME 9.9 fl (7.5-11.1); MONO % 13.8 % (3.8-10.2); NEUT % 55.5 % (42.8-82.8); PLATELET COUNT 221 10^3/uL (134-434); RBC 3.75 M/mm3 (3.60-5.2); RDW 15.1 % (11.6-15.6); WHITE BLOOD COUNT 4.9 K/mm3 (4.0-10.0)
[2023-06-15 08:37] LABS: POTASSIUM 3.7 mmol/L (3.5-5.1)
[2023-06-15 08:45] LABS: CALCIUM 8.7 mg/dL (8.5-10.1)
[2023-06-15 08:46] LABS: ALBUMIN 2.7 g/dl (3.4-5.0); BLOOD UREA NITROGEN 15.6 mg/dL (7-18); MAGNESIUM 1.7 mg/dL (1.8-2.4)
[2023-06-15 08:49] LABS: CREATININE 0.9 mg/dL (0.55-1.3); PHOSPHOROUS 3.7 mg/dL (2.5-4.9)
[2023-06-15 08:50] LABS: TOT PROT 7.3 g/dl (6.4-8.2)
[2023-06-15 08:51] LABS: BILIRUBIN,TOTAL 0.6 mg/dL (0.2-1)
[2023-06-15] MEDS: ARTIFICIAL TEARS (POLYVINYL ALCOHOL) OPTH DROPS OU SCH ×2 (09:55→21:43)
[2023-06-15] MEDS: FLUTICASONE/SALMETEROL (WIXELA) 100 MCG/50 MCG DISKUS IH SCH ×2 (09:55→21:44)
[2023-06-15] MEDS: LIDOCAINE 4% PATCH TP SCH (09:55)
[2023-06-15] MEDS: ISOSORBIDE MONONITRATE 60 MG TAB.SR.24H (FP) PO SCH (09:56)
[2023-06-15] MEDS: ERTAPENEM SODIUM 0.5 GM in SODIUM CHLORIDE 50 ML IVPB SCH (09:56)
[2023-06-15] MEDS: QUEtiapine FUMARATE 25 MG TABLET PO SCH (09:56)
[2023-06-15] MEDS: FUROSEMIDE 40 MG TABLET (FP) PO SCH (09:56)
[2023-06-15] MEDS: AMIODARONE HCL 100 MG TABLET PO SCH (09:57)
[2023-06-15] MEDS: metoPROLOL SUCCINATE 25 MG TAB.SR.24H (FP) PO SCH ×2 (09:57→21:43)
[2023-06-15] MEDS: PANTOPRAZOLE 20 MG TABLET PO SCH ×2 (09:57→21:43)
[2023-06-15] MEDS ORDERED: ATORVASTATIN CA 20 MG TABLET (FP) ONE (21:38)
[2023-06-15] MEDS: ATORVASTATIN CA 40 MG TABLET (FP) PO SCH (21:44)
[2023-06-15] MEDS: LIDOCAINE PATCH REMOVAL MC SCH (21:44)
[2023-06-15] MEDS: MIRTAZAPINE 15 MG TABLET (FP) PO SCH (21:51)
[2023-06-16] MEDS: GABAPENTIN 300 MG CAPSULE PO SCH ×3 (06:31→22:05)
[2023-06-16 07:33] LABS: BASO % 1.1 % (0-2.0); EOS % 1.3 % (0-4.5); HEMATOCRIT 34.2 % (32.4-45.2); HEMOGLOBIN 10.9 GM/dL (10.7-15.3); LYMPH % 30.5 % (8-40); MCH 30.2 pg (25.7-33.7); MEAN CELL VOLUME 94.5 fl (80-96); MEAN PLT VOLUME 9.6 fl (7.5-11.1); MONO % 13.5 % (3.8-10.2); NEUT % 53.6 % (42.8-82.8); PLATELET COUNT 204 10^3/uL (134-434); RBC 3.62 M/mm3 (3.60-5.2); RDW 14.8 % (11.6-15.6); WHITE BLOOD COUNT 4.5 K/mm3 (4.0-10.0)
[2023-06-16 07:52] LABS: POTASSIUM 3.5 mmol/L (3.5-5.1)
[2023-06-16 07:58] LABS: ALBUMIN 2.7 g/dl (3.4-5.0); BLOOD UREA NITROGEN 13.9 mg/dL (7-18); CALCIUM 8.7 mg/dL (8.5-10.1); MAGNESIUM 1.7 mg/dL (1.8-2.4)
[2023-06-16 08:02] LABS: PHOSPHOROUS 3.6 mg/dL (2.5-4.9)
[2023-06-16 08:03] LABS: BILIRUBIN,TOTAL 0.7 mg/dL (0.2-1)
[2023-06-16] MEDS ORDERED: MAGNESIUM SULF 50% (8.12 MEQ/2 ML-1 GM VIAL) IVPB ONE (08:52)
[2023-06-16] MEDS: ERTAPENEM SODIUM 0.5 GM in SODIUM CHLORIDE 50 ML IVPB SCH (11:42)
[2023-06-16] MEDS: LIDOCAINE 4% PATCH TP SCH (11:42)
[2023-06-16] MEDS: metoPROLOL SUCCINATE 25 MG TAB.SR.24H (FP) PO SCH ×2 (11:43→22:05)
[2023-06-16] MEDS: AMIODARONE HCL 200 MG TABLET PO SCH (11:43)
[2023-06-16] MEDS: QUEtiapine FUMARATE 25 MG TABLET PO SCH (11:43)
[2023-06-16] MEDS: ISOSORBIDE MONONITRATE 60 MG TAB.SR.24H (FP) PO SCH (11:43)
[2023-06-16] MEDS: FUROSEMIDE 40 MG TABLET (FP) PO SCH (11:44)
[2023-06-16] MEDS: ARTIFICIAL TEARS (POLYVINYL ALCOHOL) OPTH DROPS OU SCH ×2 (11:45→22:18)
[2023-06-16] MEDS: PANTOPRAZOLE 20 MG TABLET PO SCH ×2 (11:45→22:05)
[2023-06-16] MEDS: FLUTICASONE/SALMETEROL (WIXELA) 100 MCG/50 MCG DISKUS IH SCH ×2 (11:45→22:17)
[2023-06-16] MEDS: URSODIOL 300 MG CAPSULE PO SCH (22:05)
[2023-06-16] MEDS: APIXABAN 2.5 MG TABLET PO SCH (22:05)
[2023-06-16] MEDS: MIRTAZAPINE 15 MG TABLET (FP) PO SCH (22:05)
[2023-06-16] MEDS: ATORVASTATIN CA 40 MG TABLET (FP) PO SCH (22:05)
[2023-06-16] MEDS: LIDOCAINE PATCH REMOVAL MC SCH (22:19)
[2023-06-17] MEDS: GABAPENTIN 300 MG CAPSULE PO SCH ×2 (06:44→14:45)
[2023-06-17 07:24] LABS: BASO % 0.9 % (0-2.0); EOS % 0.8 % (0-4.5); HEMATOCRIT 31.7 % (32.4-45.2); HEMOGLOBIN 10.4 GM/dL (10.7-15.3); LYMPH % 21.1 % (8-40); MCH 30.7 pg (25.7-33.7); MCHC 32.7 g/dl (32.0-36.0); MEAN PLT VOLUME 9.5 fl (7.5-11.1); MONO % 10.6 % (3.8-10.2); NEUT % 66.6 % (42.8-82.8); PLATELET COUNT 182 10^3/uL (134-434); RBC 3.37 M/mm3 (3.60-5.2); WHITE BLOOD COUNT 4.9 K/mm3 (4.0-10.0)
[2023-06-17 07:46] LABS: CALCIUM 8.9 mg/dL (8.5-10.1); POTASSIUM 3.3 mmol/L (3.5-5.1)
[2023-06-17 07:47] LABS: ALBUMIN 2.6 g/dl (3.4-5.0); BLOOD UREA NITROGEN 15.5 mg/dL (7-18); MAGNESIUM 1.9 mg/dL (1.8-2.4)
[2023-06-17 07:50] LABS: CREATININE 1.1 mg/dL (0.55-1.3); PHOSPHOROUS 3.4 mg/dL (2.5-4.9)
[2023-06-17 07:52] LABS: BILIRUBIN,TOTAL 0.4 mg/dL (0.2-1)
[2023-06-17] MEDS: AMIODARONE HCL 200 MG TABLET PO SCH (09:31)
[2023-06-17] MEDS: ISOSORBIDE MONONITRATE 60 MG TAB.SR.24H (FP) PO SCH (09:31)
[2023-06-17] MEDS: metoPROLOL SUCCINATE 25 MG TAB.SR.24H (FP) PO SCH (09:32)
[2023-06-17] MEDS: QUEtiapine FUMARATE 25 MG TABLET PO SCH (09:33)
[2023-06-17] MEDS: PANTOPRAZOLE 20 MG TABLET PO SCH (09:33)
[2023-06-17] MEDS: APIXABAN 2.5 MG TABLET PO SCH (09:33)
[2023-06-17] MEDS: FUROSEMIDE 40 MG TABLET (FP) PO SCH (09:33)
[2023-06-17] MEDS: LIDOCAINE 4% PATCH TP SCH (09:34)
[2023-06-17] MEDS: URSODIOL 300 MG CAPSULE PO SCH (09:34)
[2023-06-17] MEDS: FLUTICASONE/SALMETEROL (WIXELA) 100 MCG/50 MCG DISKUS IH SCH (09:35)
[2023-06-17] MEDS: ARTIFICIAL TEARS (POLYVINYL ALCOHOL) OPTH DROPS OU SCH (09:35)
[2023-06-17] MEDS: ERTAPENEM SODIUM 0.5 GM in SODIUM CHLORIDE 50 ML IVPB SCH (09:39)
[2023-06-17 10:30] VITALS: RESP 18
[2023-06-17] MEDS ORDERED: POTASSIUM CHLORIDE ORAL LIQUID 20 MEQ/15 ML PO ONE (15:00)
[2023-06-17 17:04] VITALS: BP 130/75; PULSE 63; TEMP 98.3
== END 2023-06-17 17:21 | DRG 444 ==
LOC: JER 06:34 → JERBED 09:23 → OBSVTOIN 17:27 → J4W 06-13 17:40
PROVIDERS: ADMIT Internal Medicine; ATTEND Internal Medicine
DX: K80.10 Calculus of gallbladder with chronic cholecystitis without obstruction (principal); U07.1 COVID-19; I50.32 Chronic diastolic (congestive) heart failure; I42.8 Other cardiomyopathies; F03.90 Unspecified dementia, unspecified severity, without behavioral disturbance, psychotic disturbance, mood disturbance, and anxiety; I48.91 Unspecified atrial fibrillation; I11.0 Hypertensive heart disease with heart failure; E78.5 Hyperlipidemia, unspecified; E11.9 Type 2 diabetes mellitus without complications; D64.9 Anemia, unspecified; J44.9 Chronic obstructive pulmonary disease, unspecified; I25.10 Atherosclerotic heart disease of native coronary artery without angina pectoris; F32.A Depression, unspecified; G47.00 Insomnia, unspecified; W18.30XA Fall on same level, unspecified, initial encounter; Y92.098 Other place in other non-institutional residence as the place of occurrence of the external cause; K21.9 Gastro-esophageal reflux disease without esophagitis; R79.89 Other specified abnormal findings of blood chemistry; Z88.0 Allergy status to penicillin; Z95.810 Presence of automatic (implantable) cardiac defibrillator
CPT/HCPCS: 0241U-QW; 36415; 70450-TC; 71045-TC-FY; 72125-TC; 72128-TC; 72131-TC; 72170-TC-FY; 76700-TC; 78226-TC; 80053; 81003; 82550; 82962; 82977; 83735; 84100; 84484; 85025; 85610; 85730; 86140; 87086; 87635; 93005; 93010; 99285-25; A9537; G0378

== ENCOUNTER 2023-06-26 14:04 | Inpatient (IN) | payer OTHER ==
[2023-06-26] MEDS ORDERED: SODIUM CHLORIDE 0.9% 500 ML INFUS.BAG IV ONE (14:33)
[2023-06-26] MEDS ORDERED: ACETAMINOPHEN 1000 MG/100 ML BAG IVPB ONE (14:35)
[2023-06-26] MEDS ORDERED: ALBUTEROL SO4 2.5/IPRATROPIUM 0.5 INH SOL 3 ML VIAL.NEB. NEB ONE ×2 (14:44→14:48)
[2023-06-26] MEDS ORDERED: ACETAMINOPHEN INJECTION 100 ML IVPB ONE (15:16)
[2023-06-26 16:08] LABS: VENOUS O2 SATURATION 22.5 % (70-80); VENOUS PCO2 62.3 mmHg (38-52); VENOUS PH 7.327 (7.310-7.410)
[2023-06-26] MEDS ORDERED: methylPREDNISolone NA SUCC 125 MG/2 ML VIAL IVPUSH ONE (16:11)
[2023-06-26 16:15] VITALS: BMI 22.8
[2023-06-26] MEDS ORDERED: methylPREDNISolone NA SUCC 125 MG/2 ML VIAL ONE (16:22)
[2023-06-26 16:24] LABS: EPI CELLS 5 /uL (0-25.1); HYALINE CASTS 0 /uL (0-3.1); PH,URINE 6.5 (5.0-8.0); URINE APPEARANCE CLEAR; URINE BACTERIA 1 /uL (0-1359); URINE BILIRUBIN NEGATIVE (NEGATIVE); URINE COLOR YELLOW; URINE GLUCOSE (UA) NEGATIVE (NEGATIVE); URINE KETONE NEGATIVE (NEGATIVE); URINE LEUK ESTERASE NEGATIVE (NEGATIVE); URINE NITRITE NEGATIVE (NEGATIVE); URINE PROTEIN 2+ (NEGATIVE); URINE RBC 8 /uL (0-23.9); URINE WBC 2 /uL (0-25.8)
[2023-06-26 16:27] LABS: BASO % 0.8 % (0-2.0); EOS % 1.3 % (0-4.5); HEMATOCRIT 33.9 % (32.4-45.2); HEMOGLOBIN 10.7 GM/dL (10.7-15.3); LYMPH % 21.3 % (8-40); MCH 29.8 pg (25.7-33.7); MCHC 31.6 g/dl (32.0-36.0); MEAN CELL VOLUME 94.4 fl (80-96); MEAN PLT VOLUME 10.1 fl (7.5-11.1); MONO % 10.3 % (3.8-10.2); NEUT % 66.3 % (42.8-82.8); PLATELET COUNT 210 10^3/uL (134-434); RBC 3.59 M/mm3 (3.60-5.2); RDW 15.1 % (11.6-15.6); WHITE BLOOD COUNT 6.6 K/mm3 (4.0-10.0)
[2023-06-26 16:29] LABS: INR 1.17 (0.83-1.09); PROTHROMBIN TIME (PATIENT) 13.5 SEC (9.7-13.0)
[2023-06-26 16:32] LABS: ACTIVATED PTT 25.7 SECONDS (25.2-36.5)
[2023-06-26 16:39] LABS: POTASSIUM 4.1 mmol/L (3.5-5.1)
[2023-06-26 16:42] LABS: BLOOD UREA NITROGEN 34.1 mg/dL (7-18); CALCIUM 9.1 mg/dL (8.5-10.1)
[2023-06-26 16:47] LABS: BILIRUBIN,TOTAL 0.4 mg/dL (0.2-1); TOT PROT 7.9 g/dl (6.4-8.2)
[2023-06-26] MEDS ORDERED: MIDAZOLAM HCL 2 MG/2 ML SINGLE DOSE VIAL IVPUSH ONE (17:00)
[2023-06-27] MEDS ORDERED: FUROSEMIDE 40 MG/4 ML INJECTABLE VIAL IVPUSH ONE (00:30)
[2023-06-27] MEDS ORDERED: MAGNESIUM HYDROX 2400MG/30ML ORAL SUSPENSION 30 ML CUP PO PRN (01:01)
[2023-06-27] MEDS ORDERED: FUROSEMIDE 40 MG/4 ML INJECTABLE VIAL ONE (01:40)
[2023-06-27] MEDS: ALBUTEROL SO4 2.5/IPRATROPIUM 0.5 INH SOL 3 ML VIAL.NEB. NEB SCH ×3 (04:41→13:41)
[2023-06-27] MEDS ORDERED: GABAPENTIN 300 MG CAPSULE ONE ×2 (06:16→14:11)
[2023-06-27] MEDS ORDERED: ALBUTEROL SO4 2.5/IPRATROPIUM 0.5 INH SOL 3 ML VIAL.NEB. NEB ONE ×2 (06:42→13:36)
[2023-06-27] MEDS: INSULIN SLIDING SCALE (NOVOLOG) 1 VIAL SQ SCH ×3 (06:42→16:56)
[2023-06-27 06:45] LABS: HEMATOCRIT 31.4 % (32.4-45.2); HEMOGLOBIN 10.2 GM/dL (10.7-15.3); MCH 30.6 pg (25.7-33.7); MCHC 32.5 g/dl (32.0-36.0); MEAN CELL VOLUME 94.3 fl (80-96); MEAN PLT VOLUME 9.8 fl (7.5-11.1); PLATELET COUNT 202 10^3/uL (134-434); RBC 3.33 M/mm3 (3.60-5.2); RDW 15.3 % (11.6-15.6); WHITE BLOOD COUNT 4.9 K/mm3 (4.0-10.0)
[2023-06-27] MEDS: GABAPENTIN 300 MG CAPSULE PO SCH ×3 (06:49→22:35)
[2023-06-27 06:55] LABS: POTASSIUM 3.9 mmol/L (3.5-5.1)
[2023-06-27 06:58] LABS: ALBUMIN 2.9 g/dl (3.4-5.0); CALCIUM 8.8 mg/dL (8.5-10.1); MAGNESIUM 1.9 mg/dL (1.8-2.4)
[2023-06-27 06:59] LABS: BLOOD UREA NITROGEN 31.3 mg/dL (7-18)
[2023-06-27 07:01] LABS: CREATININE 1.2 mg/dL (0.55-1.3)
[2023-06-27 07:03] LABS: BILIRUBIN,TOTAL 0.5 mg/dL (0.2-1); TOT PROT 7.6 g/dl (6.4-8.2)
[2023-06-27] MEDS ORDERED: PANTOPRAZOLE 20 MG TABLET PO ONE (09:19)
[2023-06-27] MEDS ORDERED: LIDOCAINE 4% PATCH TP ONE (09:20)
[2023-06-27] MEDS ORDERED: ASCORBIC ACID 500 MG TABLET (FP) ONE (09:20)
[2023-06-27] MEDS ORDERED: MULTIVITAMINS (DAILY MVI) TABLET (FP) ONE (09:20)
[2023-06-27] MEDS ORDERED: SENNOSIDES 8.6MG TABLET (FP) PO ONE (09:25)
[2023-06-27] MEDS: LIDOCAINE 4% PATCH TP SCH (09:33)
[2023-06-27] MEDS: ISOSORBIDE MONONITRATE 60 MG TAB.SR.24H (FP) PO SCH (09:37)
[2023-06-27] MEDS: APIXABAN 2.5 MG TABLET PO SCH ×2 (09:37→22:35)
[2023-06-27] MEDS: AMIODARONE HCL 100 MG TABLET PO SCH (09:37)
[2023-06-27] MEDS: SENNOSIDES 8.6MG TABLET (FP) PO SCH (09:38)
[2023-06-27] MEDS: MULTIVITAMINS (DAILY MVI) TABLET (FP) PO SCH (09:38)
[2023-06-27] MEDS: ASCORBIC ACID 500 MG TABLET (FP) PO SCH (09:38)
[2023-06-27] MEDS: PANTOPRAZOLE 20 MG TABLET PO SCH ×2 (09:38→22:35)
[2023-06-27] MEDS ORDERED: FUROSEMIDE 40 MG TABLET (FP) PO SCH (10:00)
[2023-06-27] MEDS ORDERED: MAGNESIUM SULF 50% (8.12 MEQ/2 ML-1 GM VIAL) IVPB ONE (11:00)
[2023-06-27] MEDS: FUROSEMIDE 40 MG TABLET (FP) PO SCH ×2 (11:10→15:01)
[2023-06-27] MEDS: URSODIOL 300 MG CAPSULE PO SCH ×2 (11:10→22:30)
[2023-06-27] MEDS: METOPROLOL TARTRATE 25 MG TABLET (FP) PO SCH ×2 (11:10→22:35)
[2023-06-27] MEDS ORDERED: MAGNESIUM SULFATE IN WATER 2 GM/50 ML IVPB IVPB ONE (11:15)
[2023-06-27] MEDS: BUDESONIDE/FORMETEROL FUMARATE 80/4.5 mcg INHALER IH SCH ×2 (12:48→22:35)
[2023-06-27] MEDS ORDERED: FUROSEMIDE 40 MG TABLET (FP) ONE (14:52)
[2023-06-27] MEDS ORDERED: ALBUTEROL SO4 2.5/IPRATROPIUM 0.5 INH SOL 3 ML VIAL.NEB. NEB PRN (18:59)
[2023-06-27] MEDS: ATORVASTATIN CA 40 MG TABLET (FP) PO SCH (22:35)
[2023-06-27] MEDS: MIRTAZAPINE 15 MG TABLET (FP) PO SCH (22:35)
[2023-06-27] MEDS: LIDOCAINE PATCH REMOVAL MC SCH (22:35)
[2023-06-28] MEDS ORDERED: METOPROLOL TARTRATE 25 MG TABLET (FP) ONE (00:34)
[2023-06-28] MEDS ORDERED: PANTOPRAZOLE 20 MG TABLET PO ONE (00:34)
[2023-06-28] MEDS ORDERED: MIRTAZAPINE 15 MG TABLET (FP) ONE (00:34)
[2023-06-28] MEDS: INSULIN SLIDING SCALE (NOVOLOG) 1 VIAL SQ SCH ×5 (00:50→23:00)
[2023-06-28] MEDS ORDERED: FUROSEMIDE 40 MG TABLET (FP) ONE (05:58)
[2023-06-28] MEDS ORDERED: GABAPENTIN 300 MG CAPSULE ONE (05:58)
[2023-06-28] MEDS: FUROSEMIDE 40 MG TABLET (FP) PO SCH ×2 (06:07→13:15)
[2023-06-28] MEDS: GABAPENTIN 300 MG CAPSULE PO SCH ×3 (06:07→23:00)
[2023-06-28] MEDS: ISOSORBIDE MONONITRATE 60 MG TAB.SR.24H (FP) PO SCH (10:53)
[2023-06-28] MEDS: ASCORBIC ACID 500 MG TABLET (FP) PO SCH (10:53)
[2023-06-28] MEDS: APIXABAN 2.5 MG TABLET PO SCH ×2 (10:53→23:00)
[2023-06-28] MEDS: PANTOPRAZOLE 20 MG TABLET PO SCH ×2 (10:53→23:00)
[2023-06-28] MEDS: MULTIVITAMINS (DAILY MVI) TABLET (FP) PO SCH (10:53)
[2023-06-28] MEDS: SENNOSIDES 8.6MG TABLET (FP) PO SCH (10:53)
[2023-06-28] MEDS: URSODIOL 300 MG CAPSULE PO SCH ×2 (10:53→23:00)
[2023-06-28] MEDS: METOPROLOL TARTRATE 25 MG TABLET (FP) PO SCH ×2 (10:53→23:00)
[2023-06-28] MEDS: LIDOCAINE 4% PATCH TP SCH (10:53)
[2023-06-28] MEDS: AMIODARONE HCL 200 MG TABLET PO SCH (12:07)
[2023-06-28] MEDS: BUDESONIDE/FORMETEROL FUMARATE 80/4.5 mcg INHALER IH SCH (12:07)
[2023-06-28] MEDS: LIDOCAINE PATCH REMOVAL MC SCH (23:00)
[2023-06-28] MEDS: ATORVASTATIN CA 40 MG TABLET (FP) PO SCH (23:00)
[2023-06-28] MEDS: MIRTAZAPINE 15 MG TABLET (FP) PO SCH (23:00)
[2023-06-29] MEDS: BUDESONIDE/FORMETEROL FUMARATE 80/4.5 mcg INHALER IH SCH ×4 (00:42→21:47)
[2023-06-29] MEDS: MELATONIN 5 MG TABLETS PO SCH ×2 (01:40→21:44)
[2023-06-29] MEDS: FUROSEMIDE 40 MG TABLET (FP) PO SCH ×2 (06:31→16:46)
[2023-06-29] MEDS: GABAPENTIN 300 MG CAPSULE PO SCH ×3 (06:31→21:45)
[2023-06-29] MEDS: INSULIN SLIDING SCALE (NOVOLOG) 1 VIAL SQ SCH ×4 (07:06→21:51)
[2023-06-29] MEDS: AMIODARONE HCL 100 MG TABLET PO SCH (07:07)
[2023-06-29 09:27] LABS: EOS % 0.7 % (0-4.5); HEMATOCRIT 31.4 % (32.4-45.2); HEMOGLOBIN 9.9 GM/dL (10.7-15.3); LYMPH % 19.2 % (8-40); MCH 30.3 pg (25.7-33.7); MCHC 31.7 g/dl (32.0-36.0); MEAN CELL VOLUME 95.5 fl (80-96); MEAN PLT VOLUME 10.2 fl (7.5-11.1); NEUT % 70.1 % (42.8-82.8); PLATELET COUNT 131 10^3/uL (134-434); RBC 3.28 M/mm3 (3.60-5.2); RDW 15.2 % (11.6-15.6); WHITE BLOOD COUNT 6.1 K/mm3 (4.0-10.0)
[2023-06-29 09:35] LABS: POTASSIUM 3.4 mmol/L (3.5-5.1)
[2023-06-29 10:08] LABS: CALCIUM 8.6 mg/dL (8.5-10.1)
[2023-06-29 10:11] LABS: BILIRUBIN,TOTAL 0.5 mg/dL (0.2-1); TOT PROT 6.6 g/dl (6.4-8.2)
[2023-06-29 10:22] LABS: ALBUMIN 2.6 g/dl (3.4-5.0)
[2023-06-29 10:23] LABS: BLOOD UREA NITROGEN 28.8 mg/dL (7-18)
[2023-06-29] MEDS: LIDOCAINE 4% PATCH TP SCH ×2 (10:30→11:13)
[2023-06-29] MEDS: APIXABAN 2.5 MG TABLET PO SCH ×3 (11:12→21:45)
[2023-06-29] MEDS: PANTOPRAZOLE 20 MG TABLET PO SCH ×3 (11:12→21:45)
[2023-06-29] MEDS: MULTIVITAMINS (DAILY MVI) TABLET (FP) PO SCH ×2 (11:12→13:32)
[2023-06-29] MEDS: SENNOSIDES 8.6MG TABLET (FP) PO SCH ×2 (11:12→13:32)
[2023-06-29] MEDS: METOPROLOL TARTRATE 25 MG TABLET (FP) PO SCH ×3 (11:13→21:47)
[2023-06-29] MEDS: ASCORBIC ACID 500 MG TABLET (FP) PO SCH ×2 (11:13→13:32)
[2023-06-29] MEDS: AMIODARONE HCL 200 MG TABLET PO SCH ×2 (11:13→13:32)
[2023-06-29] MEDS: ISOSORBIDE MONONITRATE 60 MG TAB.SR.24H (FP) PO SCH ×2 (11:14→13:32)
[2023-06-29] MEDS: URSODIOL 300 MG CAPSULE PO SCH ×3 (11:14→21:45)
[2023-06-29] MEDS ORDERED: POTASSIUM CHLORIDE ORAL LIQUID 20 MEQ/15 ML PO ONE (13:15)
[2023-06-29] MEDS: MIRTAZAPINE 15 MG TABLET (FP) PO SCH (21:45)
[2023-06-29] MEDS: ATORVASTATIN CA 40 MG TABLET (FP) PO SCH (21:45)
[2023-06-29] MEDS: LIDOCAINE PATCH REMOVAL MC SCH (21:46)
[2023-06-30 05:50] VITALS: RESP 16
[2023-06-30] MEDS: GABAPENTIN 300 MG CAPSULE PO SCH (05:50)
[2023-06-30] MEDS: FUROSEMIDE 40 MG TABLET (FP) PO SCH (05:50)
[2023-06-30] MEDS: INSULIN SLIDING SCALE (NOVOLOG) 1 VIAL SQ SCH ×2 (06:07→12:04)
[2023-06-30 06:27] VITALS: BP 140/84; PULSE 62; TEMP 97.6
[2023-06-30] MEDS: ASCORBIC ACID 500 MG TABLET (FP) PO SCH (10:31)
[2023-06-30] MEDS: ISOSORBIDE MONONITRATE 60 MG TAB.SR.24H (FP) PO SCH (10:31)
[2023-06-30] MEDS: METOPROLOL TARTRATE 25 MG TABLET (FP) PO SCH (10:31)
[2023-06-30] MEDS: PANTOPRAZOLE 20 MG TABLET PO SCH (10:31)
[2023-06-30] MEDS: SENNOSIDES 8.6MG TABLET (FP) PO SCH (10:31)
[2023-06-30] MEDS: AMIODARONE HCL 200 MG TABLET PO SCH (10:31)
[2023-06-30] MEDS: MULTIVITAMINS (DAILY MVI) TABLET (FP) PO SCH (10:31)
[2023-06-30] MEDS: LIDOCAINE 4% PATCH TP SCH (10:31)
[2023-06-30] MEDS: APIXABAN 2.5 MG TABLET PO SCH (10:31)
[2023-06-30] MEDS: URSODIOL 300 MG CAPSULE PO SCH (10:31)
== END 2023-06-30 13:09 | DRG 291 ==
LOC: JER 14:04 → JERBED 19:57 → OBSVTOIN 19:57 → UNDOADMOB 19:57 → INTOOBSV 19:57 → OBSVTOIN 06-27 00:25 → JERBED 06-27 00:25 → J5S 06-28 17:33
PROVIDERS: ADMIT Internal Medicine; ATTEND Internal Medicine
DX: I11.0 Hypertensive heart disease with heart failure (principal); G93.41 Metabolic encephalopathy; I50.33 Acute on chronic diastolic (congestive) heart failure; J81.1 Chronic pulmonary edema; Z68.1 Body mass index [BMI] 19.9 or less, adult; R64 Cachexia; R41.82 Altered mental status, unspecified; I50.32 Chronic diastolic (congestive) heart failure; I42.9 Cardiomyopathy, unspecified; E11.9 Type 2 diabetes mellitus without complications; D64.9 Anemia, unspecified; J44.9 Chronic obstructive pulmonary disease, unspecified; K81.1 Chronic cholecystitis; I48.0 Paroxysmal atrial fibrillation; F03.90 Unspecified dementia, unspecified severity, without behavioral disturbance, psychotic disturbance, mood disturbance, and anxiety; K21.9 Gastro-esophageal reflux disease without esophagitis
CPT/HCPCS: 0241U-QW; 36415; 70450-TC; 71045-TC-FY; 74177-TC; 80053; 81003; 82803; 82962; 83605; 83690; 83735; 83880; 84100; 84439; 84443; 84484; 85025; 85027; 85610; 85730; 86850; 86900; 86901; 87040; 87086; 93005; 93010; 93306-TC; 94640; 97116-GP; 97161-GP; 99285-25; Q9967

== ENCOUNTER 2023-11-10 02:08 | Emergency (ER) | payer OTHER ==
[2023-11-10 02:22] VITALS: BMI 16.3
[2023-11-10 02:53] LABS: BASO % 0.9 % (0-2.0); EOS % 1.6 % (0-4.5); HEMATOCRIT 37.4 % (32.4-45.2); LYMPH % 16.7 % (8-40); MCH 30.4 pg (25.7-33.7); MCHC 32.1 g/dl (32.0-36.0); MEAN CELL VOLUME 94.6 fl (80-96); MEAN PLT VOLUME 8.9 fl (7.5-11.1); NEUT % 70.8 % (42.8-82.8); PLATELET COUNT 230 10^3/uL (134-434); RBC 3.95 M/mm3 (3.60-5.2); RDW 15.2 % (11.6-15.6); WHITE BLOOD COUNT 6.4 K/mm3 (4.0-10.0)
[2023-11-10 04:03] LABS: POTASSIUM 5.9 mmol/L (3.5-5.1)
[2023-11-10 04:07] LABS: ALBUMIN 2.3 g/dl (3.4-5.0); CALCIUM 8.7 mg/dL (8.5-10.1)
[2023-11-10 04:10] LABS: CREATININE 1.1 mg/dL (0.55-1.3)
[2023-11-10 04:11] LABS: BILIRUBIN,TOTAL 0.6 mg/dL (0.2-1); TOT PROT 7.6 g/dl (6.4-8.2)
[2023-11-10] MEDS ORDERED: FUROSEMIDE 40 MG/4 ML INJECTABLE VIAL ONE (07:18)
[2023-11-10] MEDS: FUROSEMIDE 40 MG/4 ML INJECTABLE VIAL IVPUSH ONE (07:19)
[2023-11-10 09:47] VITALS: BP 149/89; PULSE 72; RESP 17; TEMP 97.5
== END 2023-11-10 10:04 ==
LOC: JER 02:08
PROC: 3E033NZ Introduction of Analgesics, Hypnotics, Sedatives into Peripheral Vein, Percutaneous Approach (ICD-10-PCS; principal; 2023-11-10)
DX: R60.0 Localized edema (principal); R79.9 Abnormal finding of blood chemistry, unspecified; Z20.822 Contact with and (suspected) exposure to COVID-19
CPT/HCPCS: 0241U-QW; 36415; 71045-TC-FY; 80053; 83880; 84132; 84484; 85025; 93005; 93010; 99285-25

== ENCOUNTER 2024-01-06 17:28 | Inpatient (IN) | payer OTHER ==
[2024-01-06 18:46] LABS: EOS % 1.6 % (0-4.5); LYMPH % 29.9 % (8-40); MCH 31.9 pg (25.7-33.7); MCHC 33.2 g/dl (32.0-36.0); MEAN CELL VOLUME 96.3 fl (80-96); MEAN PLT VOLUME 8.8 fl (7.5-11.1); MONO % 10.7 % (3.8-10.2); NEUT % 56.8 % (42.8-82.8); PLATELET COUNT 183 10^3/uL (134-434); RBC 3.43 M/mm3 (3.60-5.2); WHITE BLOOD COUNT 4.7 K/mm3 (4.0-10.0)
[2024-01-06 18:59] LABS: EPI CELLS 6 /uL (0-25.1); HYALINE CASTS 0 /uL (0-3.1); PH,URINE 5.5 (5.0-8.0); URINE APPEARANCE CLEAR; URINE BACTERIA 49 /uL (0-1359); URINE BILIRUBIN NEGATIVE (NEGATIVE); URINE COLOR YELLOW; URINE GLUCOSE (UA) NEGATIVE (NEGATIVE); URINE KETONE NEGATIVE (NEGATIVE); URINE LEUK ESTERASE NEGATIVE (NEGATIVE); URINE NITRITE NEGATIVE (NEGATIVE); URINE PROTEIN TRACE (NEGATIVE); URINE RBC 8 /uL (0-23.9); URINE UROBILINOGEN 0.2 mg/dL (0.2-1.0); URINE WBC 3 /uL (0-25.8)
[2024-01-06 19:07] LABS: POTASSIUM 4.4 mmol/L (3.5-5.1)
[2024-01-06 19:09] LABS: CALCIUM 9.2 mg/dL (8.5-10.1)
[2024-01-06 19:10] LABS: ALBUMIN 2.7 g/dl (3.4-5.0); BLOOD UREA NITROGEN 34.8 mg/dL (7-18)
[2024-01-06 19:13] LABS: CREATININE 1.2 mg/dL (0.55-1.3)
[2024-01-06 19:14] LABS: TOT PROT 7.3 g/dl (6.4-8.2)
[2024-01-06 19:15] LABS: BILIRUBIN,TOTAL 0.2 mg/dL (0.2-1)
[2024-01-06] MEDS: SODIUM CHLORIDE 1,000 ML IV SCH (22:39)
[2024-01-07] MEDS: GABAPENTIN 300 MG CAPSULE PO SCH (05:40)
[2024-01-07 08:24] LABS: POTASSIUM 3.9 mmol/L (3.5-5.1)
[2024-01-07 08:28] LABS: BASO % 1.3 % (0-2.0); EOS % 2.1 % (0-4.5); HEMATOCRIT 34.2 % (32.4-45.2); HEMOGLOBIN 11.1 GM/dL (10.7-15.3); LYMPH % 29.6 % (8-40); MCH 31.6 pg (25.7-33.7); MCHC 32.4 g/dl (32.0-36.0); MEAN CELL VOLUME 97.4 fl (80-96); MEAN PLT VOLUME 9.3 fl (7.5-11.1); MONO % 9.8 % (3.8-10.2); NEUT % 57.2 % (42.8-82.8); PLATELET COUNT 175 10^3/uL (134-434); RBC 3.51 M/mm3 (3.60-5.2); RDW 14.8 % (11.6-15.6); WHITE BLOOD COUNT 3.9 K/mm3 (4.0-10.0)
[2024-01-07 08:30] LABS: ALBUMIN 2.7 g/dl (3.4-5.0)
[2024-01-07 08:31] LABS: CALCIUM 8.7 mg/dL (8.5-10.1)
[2024-01-07 08:34] LABS: CREATININE 0.9 mg/dL (0.55-1.3)
[2024-01-07 08:35] LABS: BILIRUBIN,TOTAL 0.5 mg/dL (0.2-1); TOT PROT 7.2 g/dl (6.4-8.2)
[2024-01-07] MEDS: AMIODARONE HCL 200 MG TABLET PO SCH (10:05)
[2024-01-07] MEDS: APIXABAN 2.5 MG TABLET PO SCH (10:05)
[2024-01-07] MEDS: METOPROLOL TARTRATE 25 MG TABLET (FP) PO SCH (10:05)
[2024-01-07] MEDS: ISOSORBIDE MONONITRATE 60 MG TAB.SR.24H (FP) PO SCH (10:05)
[2024-01-07] MEDS: FAMOTIDINE 20 MG TABLET PO SCH (10:05)
[2024-01-07] MEDS: URSODIOL 300 MG CAPSULE PO SCH (10:05)
[2024-01-07 14:51] VITALS: BMI 18.2
[2024-01-07] MEDS: LORazepam 2 MG/ML SDV VIAL IVPUSH ONE (15:29)
[2024-01-07] MEDS: INSULIN ASPART SLIDING SCALE (NOVOLOG) 1 VIAL SQ SCH (17:05)
[2024-01-07] MEDS: AZITHROMYCIN IVPB 500 MG/250 ML BAG IVPB SCH (18:25)
[2024-01-07] MEDS: CEFTRIAXONE 1 GM in DEXTROSE 5%-WATER - 50 ML IVPB SCH (18:30)
[2024-01-07] MEDS: ATORVASTATIN CA 40 MG TABLET (FP) PO SCH (21:29)
[2024-01-07] MEDS: SENNOSIDES/DOCUSATE COMBO (SENNA PLUS) TABLET (UD) PO SCH (21:30)
[2024-01-07] MEDS: DOXYCYCLINE INJECTION 100 MG in DEXTROSE 5%-WATER 100 ML IVPB SCH (21:31)
[2024-01-08 07:39] LABS: BASO % 0.4 % (0-2.0); EOS % 1.2 % (0-4.5); HEMATOCRIT 33.5 % (32.4-45.2); HEMOGLOBIN 11.1 GM/dL (10.7-15.3); MCH 31.7 pg (25.7-33.7); MEAN CELL VOLUME 96.1 fl (80-96); MEAN PLT VOLUME 9.8 fl (7.5-11.1); MONO % 8.8 % (3.8-10.2); NEUT % 61.6 % (42.8-82.8); PLATELET COUNT 165 10^3/uL (134-434); RBC 3.48 M/mm3 (3.60-5.2); WHITE BLOOD COUNT 4.6 K/mm3 (4.0-10.0)
[2024-01-08 07:58] LABS: POTASSIUM 4.1 mmol/L (3.5-5.1)
[2024-01-08 08:04] LABS: CALCIUM 9.2 mg/dL (8.5-10.1)
[2024-01-08 08:05] LABS: BLOOD UREA NITROGEN 21.8 mg/dL (7-18)
[2024-01-08 08:08] LABS: CREATININE 0.9 mg/dL (0.55-1.3)
[2024-01-09 07:59] LABS: EOS % 1.5 % (0-4.5); HEMATOCRIT 34.7 % (32.4-45.2); HEMOGLOBIN 11.7 GM/dL (10.7-15.3); LYMPH % 21.4 % (8-40); MCHC 33.7 g/dl (32.0-36.0); MEAN CELL VOLUME 94.8 fl (80-96); MEAN PLT VOLUME 9.1 fl (7.5-11.1); MONO % 8.4 % (3.8-10.2); NEUT % 67.7 % (42.8-82.8); PLATELET COUNT 198 10^3/uL (134-434); RBC 3.66 M/mm3 (3.60-5.2); RDW 14.9 % (11.6-15.6); WHITE BLOOD COUNT 4.7 K/mm3 (4.0-10.0)
[2024-01-09 08:12] LABS: POTASSIUM 3.8 mmol/L (3.5-5.1)
[2024-01-09 08:17] LABS: CALCIUM 9.2 mg/dL (8.5-10.1)
[2024-01-09 08:18] LABS: BLOOD UREA NITROGEN 23.2 mg/dL (7-18)
[2024-01-09 08:21] LABS: CREATININE 0.9 mg/dL (0.55-1.3)
[2024-01-10] MEDS: ACETAMINOPHEN 325 MG TABLET (FP) PO PRN (10:52)
[2024-01-11] MEDS: hydrALAZINE HCL 10 MG TABLET PO PRN (14:03)
[2024-01-12] MEDS: RAMIPRIL 1.25 MG CAPSULE PO SCH (11:04)
[2024-01-12] MEDS: hydrALAZINE HCL 25 MG TABLET (FP) PO SCH (11:11)
[2024-01-13 07:05] VITALS: BP 145/93; PULSE 64; RESP 18; TEMP 97.5
== END 2024-01-13 13:21 | DRG 193 ==
LOC: JER 17:28 → JERBED 20:31 → OBSVTOIN 20:31 → J7W 01-07 00:26
PROVIDERS: ADMIT Internal Medicine; ATTEND Internal Medicine
DX: J18.9 Pneumonia, unspecified organism (principal); G93.41 Metabolic encephalopathy; E44.0 Moderate protein-calorie malnutrition; Z68.1 Body mass index [BMI] 19.9 or less, adult; R44.2 Other hallucinations; I42.8 Other cardiomyopathies; I25.10 Atherosclerotic heart disease of native coronary artery without angina pectoris; K21.9 Gastro-esophageal reflux disease without esophagitis; E78.00 Pure hypercholesterolemia, unspecified; G47.00 Insomnia, unspecified; F32.A Depression, unspecified; I48.91 Unspecified atrial fibrillation; J44.9 Chronic obstructive pulmonary disease, unspecified; E11.9 Type 2 diabetes mellitus without complications; E86.0 Dehydration; D25.9 Leiomyoma of uterus, unspecified; K80.20 Calculus of gallbladder without cholecystitis without obstruction; Z88.0 Allergy status to penicillin
CPT/HCPCS: 36415; 70450-TC; 71045-TC-FY; 74177-TC; 80048; 80053; 81003; 82962; 83605; 83735; 84100; 84484; 85025; 87040; 87086; 93005; 93010; 99285-25; Q9967

== ENCOUNTER 2024-10-06 16:42 | Emergency (ER) | payer OTHER ==
[2024-10-06 16:53] VITALS: RESP 16; BMI 17.1
[2024-10-06 19:19] LABS: BASO % 0.9 % (0-2.0); EOS % 2.4 % (0-4.5); HEMATOCRIT 32.8 % (32.4-45.2); HEMOGLOBIN 10.9 GM/dL (10.7-15.3); LYMPH % 19.2 % (8-40); MCH 31.5 pg (25.7-33.7); MCHC 33.3 g/dl (32.0-36.0); MEAN CELL VOLUME 94.6 fl (80-96); MEAN PLT VOLUME 9.5 fl (7.5-11.1); MONO % 10.1 % (3.8-10.2); NEUT % 67.4 % (42.8-82.8); PLATELET COUNT 258 10^3/uL (134-434); RBC 3.47 M/mm3 (3.60-5.2); RDW 15.4 % (11.6-15.6)
[2024-10-06 19:39] LABS: ALBUMIN 2.7 g/dl (3.4-5.0); BLOOD UREA NITROGEN 29.9 mg/dL (7-18); CALCIUM 8.9 mg/dL (8.5-10.1)
[2024-10-06 19:41] VITALS: BP 131/81; PULSE 71; TEMP 98.4
[2024-10-06 19:44] LABS: BILIRUBIN,TOTAL 0.2 mg/dL (0.2-1); TOT PROT 7.3 g/dl (6.4-8.2)
[2024-10-06] MEDS ORDERED: ACETAMINOPHEN INJECTION 100 ML ONE (20:24)
[2024-10-06] MEDS: ACETAMINOPHEN 1000 MG/100 ML BAG IVPB ONE (20:28)
[2024-10-06] MEDS ORDERED: POLYETHYLENE GLYCOL (HEALTHYLAX) 3350 17 GM PACKET ONE (23:08)
[2024-10-06] MEDS ORDERED: LACTULOSE 20 GM/30 ML UDC (FOR ORAL USE ONLY) ONE (23:08)
[2024-10-06] MEDS: LACTULOSE 20 GM/30 ML UDC (FOR ORAL USE ONLY) PO ONE (23:19)
[2024-10-06] MEDS: POLYETHYLENE GLYCOL (HEALTHYLAX) 3350 17 GM PACKET PO SCH (23:19)
[2024-10-06 23:57] LABS: EPI CELLS 24 /uL (0-25.1); HYALINE CASTS 1 /uL (0-3.1); PH,URINE 5.5 (5.0-8.0); URINE APPEARANCE CLEAR; URINE BACTERIA 16 /uL (0-1359); URINE BILIRUBIN NEGATIVE (NEGATIVE); URINE COLOR YELLOW; URINE GLUCOSE (UA) NEGATIVE (NEGATIVE); URINE KETONE NEGATIVE (NEGATIVE); URINE LEUK ESTERASE NEGATIVE (NEGATIVE); URINE NITRITE NEGATIVE (NEGATIVE); URINE PROTEIN 2+ (NEGATIVE); URINE RBC 33 /uL (0-23.9); URINE WBC 11 /uL (0-25.8)
== END 2024-10-07 02:12 ==
LOC: JER 16:42
PROC: 3E033NZ Introduction of Analgesics, Hypnotics, Sedatives into Peripheral Vein, Percutaneous Approach (ICD-10-PCS; principal; 2024-10-06)
DX: K59.00 Constipation, unspecified (principal); R10.84 Generalized abdominal pain; R07.9 Chest pain, unspecified
CPT/HCPCS: 36415; 71045-TC-FY; 74177-TC; 80053; 81003; 83605; 83690; 83735; 84484; 85025; 87086; 93005; 93010; 99285-25; J0131; Q9967

== ENCOUNTER 2024-10-19 15:04 | Observation (INO) | payer OTHER ==
[2024-10-19 16:34] LABS: BASO % 0.8 % (0-2.0); EOS % 2.4 % (0-4.5); HEMATOCRIT 35.9 % (32.4-45.2); HEMOGLOBIN 11.6 GM/dL (10.7-15.3); LYMPH % 19.4 % (8-40); MCH 30.5 pg (25.7-33.7); MCHC 32.2 g/dl (32.0-36.0); MEAN CELL VOLUME 94.9 fl (80-96); MEAN PLT VOLUME 8.8 fl (7.5-11.1); MONO % 10.4 % (3.8-10.2); PLATELET COUNT 221 10^3/uL (134-434); RBC 3.78 M/mm3 (3.60-5.2); RDW 15.3 % (11.6-15.6); WHITE BLOOD COUNT 5.1 K/mm3 (4.0-10.0)
[2024-10-19 16:43] LABS: INR 1.38 (0.83-1.09)
[2024-10-19 16:46] LABS: ACTIVATED PTT 26.8 SECONDS (25.2-36.5)
[2024-10-19 16:51] LABS: POTASSIUM 4.3 mmol/L (3.5-5.1)
[2024-10-19 16:53] LABS: CALCIUM 9.3 mg/dL (8.5-10.1)
[2024-10-19 16:57] LABS: CREATININE 1.1 mg/dL (0.55-1.3)
[2024-10-19 16:58] LABS: BILIRUBIN,TOTAL 0.4 mg/dL (0.2-1)
[2024-10-19 16:59] LABS: TOT PROT 7.7 g/dl (6.4-8.2)
[2024-10-19] MEDS ORDERED: ASPIRIN 81 MG CHEWABLE TABLETS ONE (18:00)
[2024-10-19] MEDS: ASPIRIN 81 MG CHEWABLE TABLETS PO ONE (18:08)
[2024-10-19 22:35] LABS: ARTERIAL BLD GAS O2 SATURATION 97.9 % (95-98); ARTERIAL BLOOD GAS BASE EXCESS 2.1 mmol/L (-2-2); ARTERIAL BLOOD GAS PO2 110.8 mmHg (80-100); ARTERIAL BLOOD GAS pH 7.371 (7.350-7.450)
[2024-10-19 22:38] LABS: ALLENS TEST POSITIVE
[2024-10-20] MEDS: INSULIN ASPART SLIDING SCALE (NOVOLOG) 1 VIAL SQ SCH (06:34)
[2024-10-20] MEDS: FUROSEMIDE 40 MG/4 ML INJECTABLE VIAL IVPUSH SCH (06:34)
[2024-10-20 08:26] LABS: BASO % 0.8 % (0-2.0); EOS % 2.7 % (0-4.5); HEMATOCRIT 32.4 % (32.4-45.2); HEMOGLOBIN 10.4 GM/dL (10.7-15.3); LYMPH % 18.6 % (8-40); MCH 30.5 pg (25.7-33.7); MEAN CELL VOLUME 95.2 fl (80-96); MEAN PLT VOLUME 9.6 fl (7.5-11.1); MONO % 10.1 % (3.8-10.2); NEUT % 67.8 % (42.8-82.8); PLATELET COUNT 190 10^3/uL (134-434); RBC 3.41 M/mm3 (3.60-5.2); RDW 14.4 % (11.6-15.6); WHITE BLOOD COUNT 4.8 K/mm3 (4.0-10.0)
[2024-10-20 08:42] LABS: POTASSIUM 3.9 mmol/L (3.5-5.1)
[2024-10-20 08:44] LABS: CALCIUM 8.8 mg/dL (8.5-10.1)
[2024-10-20 08:45] LABS: ALBUMIN 2.6 g/dl (3.4-5.0); BLOOD UREA NITROGEN 22.3 mg/dL (7-18); MAGNESIUM 1.9 mg/dL (1.8-2.4)
[2024-10-20 08:48] LABS: CREATININE 0.9 mg/dL (0.55-1.3); PHOSPHOROUS 3.1 mg/dL (2.5-4.9)
[2024-10-20 08:49] LABS: BILIRUBIN,TOTAL 0.6 mg/dL (0.2-1); TOT PROT 6.7 g/dl (6.4-8.2)
[2024-10-20] MEDS: APIXABAN 2.5 MG TABLET PO SCH (10:04)
[2024-10-20] MEDS: METOPROLOL TARTRATE 25 MG TABLET (FP) PO SCH (10:04)
[2024-10-20] MEDS: ISOSORBIDE MONONITRATE 60 MG TAB.SR.24H (FP) PO SCH (10:04)
[2024-10-20] MEDS: AMIODARONE HCL 200 MG TABLET PO SCH (10:04)
[2024-10-20] MEDS: RAMIPRIL 1.25 MG CAPSULE PO SCH (10:05)
[2024-10-20] MEDS: URSODIOL 300 MG CAPSULE PO SCH (10:06)
[2024-10-20] MEDS: SENNOSIDES 8.6MG TABLET (FP) PO SCH (10:07)
[2024-10-20] MEDS: hydrALAZINE HCL 25 MG TABLET (FP) PO SCH (10:07)
[2024-10-20] MEDS: POLYETHYLENE GLYCOL (HEALTHYLAX) 3350 17 GM PACKET PO SCH ×2 (10:08→22:17)
[2024-10-20] MEDS: NYSTATIN 100,000 UNIT/GM TOPICAL CREAM 15 GM TUBE TP SCH (13:00)
[2024-10-20 13:05] LABS: URINE APPEARANCE CLEAR; URINE BILIRUBIN NEGATIVE (NEGATIVE); URINE COLOR YELLOW; URINE GLUCOSE (UA) NEGATIVE (NEGATIVE); URINE KETONE NEGATIVE (NEGATIVE); URINE LEUK ESTERASE NEGATIVE (NEGATIVE); URINE NITRITE NEGATIVE (NEGATIVE); URINE PROTEIN TRACE (NEGATIVE); URINE UROBILINOGEN 0.2 mg/dL (0.2-1.0)
[2024-10-20] MEDS: GABAPENTIN 100 MG CAPSULE PO SCH (13:53)
[2024-10-20 14:28] VITALS: BMI 18.8
[2024-10-20] MEDS: ACETAMINOPHEN 325 MG TABLET (FP) PO ONE (17:41)
[2024-10-20] MEDS: BISACODYL 10 MG SUPP.RECT PR ONE (18:43)
[2024-10-20] MEDS: FAMOTIDINE 20 MG TABLET PO SCH (22:16)
[2024-10-20] MEDS: ATORVASTATIN CA 40 MG TABLET (FP) PO SCH (22:16)
[2024-10-20] MEDS: SUCRALFATE 1 GM/10 ML UNIT DOSE CUPS PO SCH (22:17)
[2024-10-21] MEDS: RAMIPRIL 1.25 MG CAPSULE PO ONE (06:16)
[2024-10-21 07:43] LABS: BASO % 1.2 % (0-2.0); HEMATOCRIT 37.6 % (32.4-45.2); HEMOGLOBIN 11.9 GM/dL (10.7-15.3); LYMPH % 19.8 % (8-40); MCH 30.1 pg (25.7-33.7); MCHC 31.6 g/dl (32.0-36.0); MEAN CELL VOLUME 95.3 fl (80-96); MEAN PLT VOLUME 9.4 fl (7.5-11.1); MONO % 8.9 % (3.8-10.2); NEUT % 68.1 % (42.8-82.8); PLATELET COUNT 217 10^3/uL (134-434); RBC 3.94 M/mm3 (3.60-5.2); RDW 14.7 % (11.6-15.6); WHITE BLOOD COUNT 5.8 K/mm3 (4.0-10.0)
[2024-10-21 08:10] LABS: POTASSIUM 3.8 mmol/L (3.5-5.1)
[2024-10-21 08:14] LABS: CALCIUM 9.3 mg/dL (8.5-10.1)
[2024-10-21 08:15] LABS: BLOOD UREA NITROGEN 19.5 mg/dL (7-18); MAGNESIUM 1.8 mg/dL (1.8-2.4)
[2024-10-21 08:18] LABS: CREATININE 0.9 mg/dL (0.55-1.3); PHOSPHOROUS 2.7 mg/dL (2.5-4.9)
[2024-10-21 08:19] LABS: BILIRUBIN,TOTAL 0.7 mg/dL (0.2-1); TOT PROT 7.9 g/dl (6.4-8.2)
[2024-10-21 08:35] LABS: ALBUMIN 3.2 g/dl (3.4-5.0)
[2024-10-21] MEDS: FUROSEMIDE 40 MG TABLET (FP) PO SCH (10:25)
[2024-10-22 04:59] VITALS: BP 168/113; PULSE 73; RESP 18; TEMP 98.4
== END 2024-10-22 12:51 ==
LOC: JER 15:04 → JERBED 18:56 → J4W 10-20 02:26
PROVIDERS: ADMIT Internal Medicine; ATTEND Student in an Organized Health Care Education/Training Program
DX: R07.89 Other chest pain (principal); B35.3 Tinea pedis; G89.29 Other chronic pain; J44.9 Chronic obstructive pulmonary disease, unspecified; F03.90 Unspecified dementia, unspecified severity, without behavioral disturbance, psychotic disturbance, mood disturbance, and anxiety; I48.91 Unspecified atrial fibrillation; I42.9 Cardiomyopathy, unspecified; R79.89 Other specified abnormal findings of blood chemistry; Z79.01 Long term (current) use of anticoagulants; E11.9 Type 2 diabetes mellitus without complications; I10 Essential (primary) hypertension; E78.5 Hyperlipidemia, unspecified; Z88.0 Allergy status to penicillin
CPT/HCPCS: 0241U-QW; 36415; 36600; 70450-TC; 71045-TC-FY; 71250-TC; 74177-TC; 80053; 81003; 82803; 82962; 83735; 83880; 84100; 84484; 85025; 85610; 85730; 86850; 86900; 86901; 93005; 93010; 93306-TC; 96365; 99285-25; G0378